=== PATIENT | female | born 1965 | race Caucasian/White ===

== ENCOUNTER 2020-04-09 14:32 | Outpatient (REF) | payer OTHER, SELFPAY | END 2020-04-09 14:33 | disposition home or self-care (01) | LOC: HO.LNP 14:32 | PROVIDERS: Visit Provider Hospitalist | DX: Z20.828 Contact with and (suspected) exposure to other viral communicable diseases (principal) | CPT/HCPCS: 87635 ==

== ENCOUNTER 2020-06-25 08:51 | Outpatient (REF) | payer OTHER, SELFPAY ==
[2020-06-25 10:04] LABS: Basophils Absolute Auto 0.1 X10*3/uL (0.0-0.2); Basophils Percent Auto 0.7 % (0-2); Eosinophils Absolute Auto 0.1 X10*3/uL (0.0-0.4); Eosinophils Percent Auto 0.9 % (0-4); Hematocrit 44.3 % (37-47); Hemoglobin 13.3 g/dl (12.0-16.0); Imm Gran Abs Auto 0.02 X10*3/uL (0.00-0.03); Imm Gran Pct Auto 0.3 % (0.0-0.4); Lymphocytes Absolute Auto 2.8 X10*3/uL (1.2-4.9); Lymphocytes Percent Auto 36.3 % (20-40); MANUAL DIFF FLAG NO; Mean Corpuscular Hemoglobin 21.4 pg (27.0-33.0); Mean Corpuscular Volume 71.3 fL (80-98); Mean Platelet Volume 10.9 fL (9.4-12.3); Monocytes Absolute Auto 0.6 X10*3/uL (0.1-1.2); Monocytes Percent Auto 7.4 % (2-11); Neutrophils Absolute Auto 4.2 X10*3/uL (2.0-8.3); Neutrophils Percent Auto 54.4 % (45-73); Platelet Count 270 X10*3/uL (160-400); Red Blood Count 6.21 X10*6/uL (4.20-5.50); Red Cell Distribution Width 16.9 % (11.0-16.0); White Blood Count 7.7 X10*3/uL (4.8-10.8)
[2020-06-25 10:33] LABS: Creatinine Urine 212.33 mg/dL; Microalbum/Creatinine Ratio Ur 6.1 ug/mg cr
[2020-06-25 10:40] LABS: Alanine Aminotransferase 28 U/L (0-31); Albumin Level 4.3 g/dL (3.5-5.0); Alkaline Phosphatase 95 U/L (39-117); Anion Gap 12 (12-20); Aspartate Amino Transferase 17 U/L (5-31); Bilirubin Total 0.6 mg/dL (0.0-1.0); Blood Urea Nitrogen 17 mg/dL (9-16); Calcium 9.1 mg/dL (8.4-10.2); Carbon Dioxide 29 mmol/L (22-29); Chloride 103 mmol/L (96-108); Cholesterol 153 mg/dL; Estimated Glomerular Filt Rate > 60; Glucose Fasting 117 mg/dL (60-99); HDL Cholesterol 39 mg/dL; LDL Cholesterol Calculated 86 mg/dl; Potassium 4.2 mmol/l (3.3-5.1); Sodium 140 mmol/L (135-145); Total Protein 7.2 g/dL (6.5-8.0); Triglycerides 144 mg/dL
[2020-06-25 10:53] LABS: TSH reflex Free T4 0.96 mIU/mL (0.32-4.0)
[2020-06-25 11:08] LABS: Folate > 20.0 ng/mL (> or = 4.0); Vitamin B12 1049 pg/mL (200-900)
== END 2020-06-25 08:52 | disposition home or self-care (01) ==
LOC: HO.LAB 08:51
PROVIDERS: PCP Internal Medicine; Visit Provider Internal Medicine
DX: E11.9 Type 2 diabetes mellitus without complications (principal); E53.8 Deficiency of other specified B group vitamins; E66.01 Morbid (severe) obesity due to excess calories
CPT/HCPCS: 36415; 80053; 80061; 82043; 82607; 82746; 84443; 85025

== ENCOUNTER 2020-07-23 06:09 | Outpatient (REF) | payer OTHER, SELFPAY | END 2020-07-23 06:10 | disposition home or self-care (01) | LOC: HO.LAB 06:09 | PROVIDERS: PCP Internal Medicine; Visit Provider Internal Medicine | DX: Z20.822 Contact with and (suspected) exposure to COVID-19 (principal) | CPT/HCPCS: 36415; C9803; U0003 ==

== ENCOUNTER → 2020-08-17 14:00 | Outpatient (BNVA) | payer OTHER, SELFPAY | PROVIDERS: Visit Provider Advanced Practice Midwife ==

== ENCOUNTER 2020-08-20 08:42 | Outpatient (REF) | payer OTHER, SELFPAY ==
[2020-08-21 08:58] LABS: BV Int Neg Control Negative (Negative); BV Int Pos Control Positive (Positive)
[2020-08-21 14:02] LABS: C. trachomatis RNA TMA NOT DETECTED (NOT DETECTED); N. gonorrhoeae RNA TMA NOT DETECTED (NOT DETECTED)
[2020-08-25 17:37] LABS: HPV mRNA E6/E7 rflx Not Detected (Not Detected)
== END 2020-08-20 08:43 | disposition home or self-care (01) ==
LOC: HO.LAB 08:42
PROVIDERS: Visit Provider Advanced Practice Midwife
DX: Z01.411 Encounter for gynecological examination (general) (routine) with abnormal findings (principal); Z11.51 Encounter for screening for human papillomavirus (HPV); N89.8 Other specified noninflammatory disorders of vagina; Z20.2 Contact with and (suspected) exposure to infections with a predominantly sexual mode of transmission
CPT/HCPCS: 36415; 87480; 87491; 87510; 87591; 87624; 87660; 88142

== ENCOUNTER 2020-09-10 08:08 | Outpatient (REF) | payer OTHER, SELFPAY | END 2020-09-10 08:09 | disposition home or self-care (01) | LOC: HO.LAB 08:08 | PROVIDERS: PCP Internal Medicine; Visit Provider Obstetrics & Gynecology | DX: Z01.419 Encounter for gynecological examination (general) (routine) without abnormal findings (principal); R87.615 Unsatisfactory cytologic smear of cervix; E11.9 Type 2 diabetes mellitus without complications; I10 Essential (primary) hypertension; E78.5 Hyperlipidemia, unspecified; G47.33 Obstructive sleep apnea (adult) (pediatric); F32.9 Major depressive disorder, single episode, unspecified; Z88.1 Allergy status to other antibiotic agents; Z88.2 Allergy status to sulfonamides; Z88.8 Allergy status to other drugs, medicaments and biological substances; Z99.89 Dependence on other enabling machines and devices; Z98.84 Bariatric surgery status | CPT/HCPCS: 88142 ==

== ENCOUNTER → 2020-10-27 09:52 | Outpatient (BNVA) | payer OTHER, SELFPAY | PROVIDERS: PCP Internal Medicine; Visit Provider Nurse Practitioner Gerontology | DX: E11.65 Type 2 diabetes mellitus with hyperglycemia (principal); Z79.4 Long term (current) use of insulin; I10 Essential (primary) hypertension; E78.5 Hyperlipidemia, unspecified; E66.01 Morbid (severe) obesity due to excess calories; Z68.41 Body mass index [BMI] 40.0-44.9, adult | CPT/HCPCS: 82947 ==

== ENCOUNTER 2020-11-28 07:41 | Outpatient (REF) | payer OTHER, SELFPAY ==
[2020-11-28 08:42] LABS: Alanine Aminotransferase 23 U/L (0-31); Albumin Level 4.1 g/dL (3.5-5.0); Alkaline Phosphatase 93 U/L (39-117); Anion Gap 14 (12-20); Aspartate Amino Transferase 15 U/L (5-31); Bilirubin Total 0.7 mg/dL (0.0-1.0); Blood Urea Nitrogen 14 mg/dL (9-16); Carbon Dioxide 27 mmol/L (22-29); Chloride 104 mmol/L (96-108); Cholesterol 133 mg/dL; Estimated Glomerular Filt Rate > 60; Glucose Fasting 106 mg/dL (60-99); HDL Cholesterol 42 mg/dL; LDL Cholesterol Calculated 66 mg/dl; Potassium 3.9 mmol/L (3.3-5.1); Sodium 141 mmol/L (135-145); Total Protein 6.7 g/dL (6.5-8.0); Triglycerides 128 mg/dL
[2020-11-30 08:23] LABS: Vitamin B12 853 pg/mL (200-900)
== END 2020-11-28 07:42 | disposition home or self-care (01) ==
LOC: HO.LAB 07:41
PROVIDERS: PCP Internal Medicine; Visit Provider Internal Medicine
DX: E11.9 Type 2 diabetes mellitus without complications (principal); E78.5 Hyperlipidemia, unspecified
CPT/HCPCS: 36415; 80053; 80061; 82043; 82607; 82746

== ENCOUNTER → 2020-12-29 08:17 | Outpatient (BNVA) | payer OTHER, SELFPAY | PROVIDERS: PCP Internal Medicine; Visit Provider Nurse Practitioner Gerontology | DX: E11.65 Type 2 diabetes mellitus with hyperglycemia (principal); E78.5 Hyperlipidemia, unspecified; I10 Essential (primary) hypertension; E66.01 Morbid (severe) obesity due to excess calories; Z68.41 Body mass index [BMI] 40.0-44.9, adult | CPT/HCPCS: 82947 ==

== ENCOUNTER 2020-12-29 09:33 | Emergency (ER) | payer OTHER, SELFPAY ==
--- NOTE | ~2020-12-29 | XR_ITS ---
EXAMINATION: XR HIP, RIGHT CLINICAL INFORMATION: Right hip pain. COMPARISON: None TECHNIQUE: Two views of the right hip. FINDINGS: Bones and soft tissues are normal. No fracture. Alignment is anatomic. Hip joint space is maintained. XR/XR hip RT min 2V IMPRESSION: Unremarkable right hip.
[2020-12-29 09:58] VITALS: BP 127/93; PULSE 85; RESP 18; TEMP 36.6; O2SAT 99; BMI 41.9
--- NOTE | 2020-12-29 10:10 | ED_ITS ---
HPI - Abdominal Pain General Chief Complaint: Abdominal Pain Stated Complaint: flank pain Time Seen by Provider: 12/29/20 10:09 Source: patient Mode of arrival: ambulatory Limitations: no limitations History of Present Illness HPI narrative: R hip pain x 3 days radiates down leg, no trauma reported worse with walking no /GI symptoms associated, no prior episoes MD elicited complaint: other (R hip pain) Pertinent past history: none Onset (ago): day(s) (3) Pain Consistency: constant Location: groin (R hip) Severity: moderate Quality: stabbing Radiation: other (R thigh area) Migration to: no migration Exacerbating factors: movement Relieving factors: nothing Associated symptoms: denies other symptoms Related Data Home Medications Medication Instructions Recorded Confirmed atorvastatin 40 mg tablet 40 mg PO DAILY 04/09/20 12/29/20 flu vacc [id number] 6mos up(PF) ml IM 04/09/20 12/29/20 hydroxyzine HCl 25 mg tablet 25 mg PO Q8H PRN tab 10/27/20 12/29/20 trazodone 50 mg tablet 50 mg PO BEDTIME PRN 10/27/20 12/29/20 Previous Rx's Medication Instructions Recorded empagliflozin 25 mg tablet 25 mg PO DAILY 90 Days #90 tab 04/14/20 cyanocobalamin (vitamin B-12) 500 500 mcg PO DAILY 90 Days #90 tab 06/15/20 mcg tablet lisinopril 10 1 tab PO DAILY 90 Days #90 tab 06/15/20 mg-hydrochlorothiazide 12.5 mg tablet insulin glargine 100 unit/mL (3 34 unit SUBCUT BEDTIME 90 Days 08/14/20 mL) subcutaneous pen #30.6 ml pen needle, diabetic 32 gauge x #50 ea 08/14/20 miconazole nitrate 2 % vaginal 1 appful VAGINAL BEDTIME 7 Days 08/21/20 cream #45 g blood sugar diagnostic #100 ea 10/27/20 lancets 33 gauge #100 ea 10/27/20 dulaglutide 3 mg/0.5 mL 3 mg SUBCUT QWEEK 28 Days #2 ml 11/19/20 subcutaneous pen injector cyclobenzaprine 10 mg PO TID PRN #14 tab 12/29/20 ibuprofen 600 mg PO Q6H PRN #30 tab 12/29/20 nitrofurantoin monohyd/m-cryst 100 mg PO BID 7 Days #14 cap 12/29/20 [Macrobid] Allergies Allergy/AdvReac Type Severity Reaction Status Date / Time sulfamethoxazole Allergy Mild Rash Verified 12/29/20 08:38 [From ] trimethoprim [From ] Allergy Mild Rash Verified 12/29/20 08:38 metformin AdvReac Intermediate Diarrhea Verified 12/29/20 08:38 Review of Systems Review of Systems Constitutional : No Fever, No Chills ENT/Mouth : No Ear Pain, No Hoarseness, No sore throat Eyes: No Eye Pain, No Swelling, No Redness, No Foreign Body Cardiovascular : No Chest Pain, No SOB Respiratory : No Cough, No Dyspnea Gastrointestinal : No Nausea, No Vomiting, No Diarrhea, No abdominal Pain Genitourinary : No Dysuria, No Hematuria Musculoskeletal : positive joint pain, No Myalgias, No Joint Swelling Skin : No Skin lacerations, No rash Neuro : No Weakness, No Numbness, No Loss of Consciousness, No Dizziness, No Headache Psych : No Anxiety/Panic, No Depression Heme/Lymph: no easy bruising, no Lymphadenopathy Endocrine : No Polyuria, No Polydipsia All other systems reviewed and are negative Physical Exam Vital Signs: Vital Signs: Last Vital Signs Temp 98.4 F 12/29/20 10:24 Pulse 71 12/29/20 10:24 Resp 20 12/29/20 10:24 BP 120/74 12/29/20 10:24 Pulse Ox 97 12/29/20 10:24 Body Mass Index 41.9 Appearance: Alert. Oriented X3. No acute distress. Eyes: Pupils equal, round and reactive to light. ENT: Pharynx normal. Neck: Normal inspection. Neck supple. CVS: Normal heart rate and rhythm. Pulses normal. Respiratory: No respiratory distress. Breath sounds normal. Abdomen: Soft and non-tender. Skin: Skin warm and dry. Normal skin color. Normal skin turgor. Extremities: No lower extremity edema. No calf ttp R hip ttp along the ASIS area and ilac crest no rash noted pain with ROM of testing, distal NV intact Neuro: Oriented X 3. No motor deficit. No sensory deficit. Course Course Course Narrative: pos UA but no hematuria and pain is not related to the flank it is in the hip seems MSK and not renal colic, can be DC home MDM - Abdominal Pain MDM Narrative Medical decision making narrative: 55 yo female with a hx of DM, JENNIFER, HLD, obesity here with R hip pain worse with movements, she is NV intact, no rash, no swelling of the joint itself has pain with walking and ROM - at this time xrays and UA ordered, has no CVA ttp no RLQ pain to suggest appendicitis/no hematuria and pain is in hip doubt renal colic at this time. Lab Data Labs: Lab Results 12/29/20 12/29/20 Range/Units 10:07 10:07 Urine Color YELLOW Urine Appearance CLEAR Urine pH 6.0 (5.0-8.0) Ur Specific [place] 1.025 (1.005-1.025) Urine Protein NEG (NEG-TRACE) MG/DL Urine Glucose (UA) >=1000 H (NEG) MG/DL Urine Ketones NEG (NEG) MG/DL Urine Blood NEG (NEG) Urine Nitrite NEG (NEG) Ur Leukocyte Esterase NEG (NEG) Urine RBC 0 (0) /HPF Urine WBC 10-14 H (0-4) /HPF Ur Squamous Epith Cells 2+ /LPF Urine Bacteria 2+ /LPF Urine Test NEGATIVE (NEGATIVE) Discharge Plan Discharge Clinical Impression: UTI (urinary tract infection) Qualifiers: Urinary tract infection type: acute cystitis Hematuria presence: without hematuria Qualified Code(s): N30.00 - Acute cystitis without hematuria Hip strain Qualifiers: Encounter type: initial encounter Laterality: right Qualified Code(s): S76.011A - Strain of muscle, fascia and tendon of right hip, initial encounter Patient Disposition: Home, Self-Care Instructions: Urinary Tract Infection in Women (ED), Arthralgia (ED) Additional Instructions: return to ED for any worsening symptoms or concerns Prescriptions: New cyclobenzaprine 10 mg tablet 10 mg PO TID PRN (Reason: muscle spasm) Qty: 14 RF: 0 ibuprofen 600 mg tablet 600 mg PO Q6H PRN (Reason: pain) Qty: 30 RF: 0 nitrofurantoin monohyd/m-cryst [Macrobid] 100 mg capsule 100 mg PO BID 7 Days Qty: 14 RF: 0 No Action Jardiance 25 mg tablet 25 mg PO DAILY 90 Days Qty: 90 RF: 3 lisinopril-hydrochlorothiazide 10-12.5 mg tablet 1 tab PO DAILY 90 Days Qty: 90 RF: 4 cyanocobalamin (vitamin B-12) 500 mcg tablet 500 mcg PO DAILY 90 Days Qty: 90 RF: 4 insulin glargine 100 unit/mL (3 mL) insulin pen 34 unit subcut BEDTIME 90 Days Qty: 30.6 RF: 3 (DME) pen needle, diabetic 32 gauge x 5/32 needle See Rx Instructions ea topical DAILY Qty: 50 RF: 11 miconazole nitrate [Monistat 7] 2 % cream 1 appful vaginal BEDTIME 7 Days Qty: 45 RF: 0 Trulicity 3 mg/0.5 mL pen injector 3 mg subcut QWEEK 28 Days Qty: 2 RF: 2 Fluzone Quad [id number] (PF) 60 mcg (15 mcg x 4)/0.5 mL syringe IM RF: 0 atorvastatin 40 mg tablet 40 mg PO DAILY RF: 0 hydroxyzine HCl 25 mg tablet 25 mg PO Q8H PRN (Reason: itch) RF: 0 trazodone 50 mg tablet 50 mg PO BEDTIME PRNRF: 0 (DME) FreeStyle Test Strip See Rx Instructions .ROUTE .MEDSUPPLY Qty: 100 RF: 11 (DME) lancets [TRUEplus Lancets] 33 gauge misc See Rx Instructions .ROUTE .MEDSUPPLY Qty: 100 RF: 11 Referrals: Joanne Hernandez MD [Primary Care Provider] - 2 days (if not better) Stand Alone Forms: Work/School Release [facility] Past Medical History Attestation statement: The following information was validated with the patient. Medical History Abnormal Pap smear of cervix Depression Diabetes mellitus Diabetes type 2, uncontrolled Dyslipidemia Essential hypertension Obesity due to excess calories JENNIFER on CPAP Sleep apnea Surgical History History of removal of cyst History of tubal ligation Hx of colonoscopy Hx of laparoscopic gastric banding Hx of mammogram Family History Family History Father Heart disease Hypertension Alzheimers disease CVD (cardiovascular disease) Diabetes Mother Heart disease Hypertension CVD (cardiovascular disease) Arthritis Diabetes Maternal Grandmother No problems noted. Maternal Grandfather No problems noted. Paternal Grandmother Asthma Paternal Grandfather No problems noted. Maternal Aunt Colon cancer Brother Diabetes Sister Diabetes Social History Social History Household Members: Spouse and Children Housing: House Alcohol intake: current Alcohol intake frequency: does not drink Alcohol type: beer and wine Patient Tobacco Use Status: Never used Tobacco Use of substances other than those prescribed or required for medical reasons: No Advance Directives: Yes Advance Directives Information Provided: Yes Advance Directives on File: No Patient : No service: No Current occupational status: employed Gender identity: female
[2020-12-29 10:19] LABS: Glucose Urine UA >=1000 MG/DL (NEG); Leukocyte Esterase Urine NEG (NEG); Nitrite Urine NEG (NEG); Specific Gravity - Urine 1.025 (1.005-1.025); Urine Blood NEG (NEG); Urine Ketones NEG (NEG); Urine Protein NEG (NEG-TRACE)
[2020-12-29 10:21] LABS: UPreg QC Valid YES; Urine Pregnancy NEGATIVE (NEGATIVE)
[2020-12-29 10:22] LABS: Appearance Urine CLEAR; Color Urine YELLOW
[2020-12-29 10:24] VITALS: BP 120/74; PULSE 71; RESP 20; TEMP 36.9; O2SAT 97
[2020-12-29 10:34] LABS: Bacteria Urine 2+ /LPF; RBC Urine 0 /HPF (0); Squamous Epithelial Cell Urine 2+ /LPF
[2020-12-29] MEDS: Ketorolac Tromethamine 60 MG/2 ML VIAL IM (10:35)
== END 2020-12-29 11:47 | disposition home or self-care (01) ==
PROVIDERS: Emergency Provider Emergency Medicine; PCP Internal Medicine
DX: N30.00 Acute cystitis without hematuria (principal); S76.011A Strain of muscle, fascia and tendon of right hip, initial encounter; X58.XXXA Exposure to other specified factors, initial encounter; E11.9 Type 2 diabetes mellitus without complications; E78.5 Hyperlipidemia, unspecified; Y93.9 Activity, unspecified; Y92.9 Unspecified place or not applicable; Y99.9 Unspecified external cause status; Z79.4 Long term (current) use of insulin; Z79.02 Long term (current) use of antithrombotics/antiplatelets
CPT/HCPCS: 73502; 81001; 81025; 96372; 99284; J1885

== ENCOUNTER 2021-02-02 07:22 | Outpatient (REF) | payer OTHER, SELFPAY ==
--- NOTE | ~2021-02-02 | MM_ITS ---
EXAMINATION: MM SCREENING DIGITAL BREAST TOMOSYNTHESIS, BILATERAL CLINICAL INFORMATION: Screening. Asymptomatic. The lifetime risk of breast cancer based on the Tyrer-Cuzick Model is 7%. COMPARISON: Mammography: 10/14/2019, 01/22/2019, 01/12/2018 TECHNIQUE: Digital breast tomosynthesis is performed in both the craniocaudal and mediolateral oblique views along with computer-aided detection (CAD). Synthesized 2D images are generated from the tomosynthesis. Additional bilateral CC and additional bilateral MLO views are provided. FINDINGS: There are scattered areas of fibroglandular density (ACR BI-RADS breast composition Category b). There are no significant masses, abnormal calcifications, or other abnormalities. The axilla are unremarkable. Skin contours are smooth. No developing density or significant change from prior studies. MM/MM tomosynthesis screening BI IMPRESSION: No mammographic evidence of malignancy. ASSESSMENT: BI-RADS 1: Negative RECOMMENDATION: Routine annual mammography screening. This patient's information was entered into a reminder system with a target due date for their next mammogram.
== END 2021-02-02 07:23 | disposition home or self-care (01) ==
LOC: HO.MAMMO 07:22
PROVIDERS: Visit Provider Internal Medicine
DX: Z12.31 Encounter for screening mammogram for malignant neoplasm of breast (principal)
CPT/HCPCS: 77063; 77067

== ENCOUNTER → 2021-03-18 08:26 | Outpatient (BNVA) | payer OTHER, SELFPAY | PROVIDERS: PCP Internal Medicine; Visit Provider Nurse Practitioner Gerontology ==

== ENCOUNTER 2021-04-10 08:22 | Outpatient (REF) | payer OTHER, SELFPAY ==
[2021-04-10 09:38] LABS: Estimated Average Glucose 128 mg/dL; Hemoglobin A1C 144.5035 umol/L; Hemoglobin A1c % 6.1 %
[2021-04-10 09:43] LABS: Alanine Aminotransferase 29 U/L (0-31); Albumin Level 4.3 g/dL (3.5-5.0); Alkaline Phosphatase 89 U/L (39-117); Anion Gap 13 (12-20); Aspartate Amino Transferase 17 U/L (5-31); Bilirubin Total 0.6 mg/dL (0.0-1.0); Blood Urea Nitrogen 14 mg/dL (9-16); Calcium 9.1 mg/dL (8.4-10.2); Carbon Dioxide 28 mmol/L (22-29); Chloride 103 mmol/L (96-108); Cholesterol 136 mg/dL; Estimated Glomerular Filt Rate > 60; Glucose Fasting 93 mg/dL (60-99); HDL Cholesterol 38 mg/dL; LDL Cholesterol Calculated 75 mg/dl; Potassium 4.2 mmol/L (3.3-5.1); Sodium 140 mmol/L (135-145); Total Protein 7.2 g/dL (6.5-8.0); Triglycerides 116 mg/dL
[2021-04-10 11:46] LABS: Creatinine Urine 127.27 mg/dL; Microalbum/Creatinine Ratio Ur 16.5 ug/mg cr
[2021-04-16 13:02] LABS: Vitamin D 25-OH, D2 <4 ng/mL; Vitamin D 25-OH, D3 38 ng/mL; Vitamin D 25-OH, Total 38 ng/mL (30-100)
== END 2021-04-10 08:23 | disposition home or self-care (01) ==
LOC: HO.LAB 08:22
PROVIDERS: Absent Provider Nurse Practitioner Gerontology; PCP Internal Medicine; Visit Provider Internal Medicine
DX: E78.5 Hyperlipidemia, unspecified (principal); E55.9 Vitamin D deficiency, unspecified; E11.65 Type 2 diabetes mellitus with hyperglycemia
CPT/HCPCS: 36415; 80053; 80061; 82043; 82306; 83036

== ENCOUNTER 2021-06-03 07:07 | Outpatient (REF) | payer OTHER, SELFPAY | END 2021-06-03 07:08 | disposition home or self-care (01) | LOC: HO.LAB 07:07 | PROVIDERS: PCP Internal Medicine; Visit Provider Internal Medicine | DX: Z20.822 Contact with and (suspected) exposure to COVID-19 (principal) | CPT/HCPCS: C9803; U0003; U0005 ==

== ENCOUNTER 2021-07-13 14:25 | Emergency (ER) | payer OTHER, SELFPAY ==
--- NOTE | ~2021-07-13 | CT_ITS ---
EXAMINATION: CT ABDOMEN AND PELVIS WITHOUT CONTRAST CLINICAL INFORMATION: Abdominal pain COMPARISON: None TECHNIQUE: Multidetector volumetric imaging was performed from the superior aspect of the liver through the pubic symphysis. Sagittal and coronal reformatted images were obtained on the technologist's workstation. This CT examination was performed using dose optimization techniques as appropriate, variously including the following: *Automated exposure control *Adjustment of mA and/or kV according to patient size (this includes techniques or standardized protocols for targeted exams where dose is matched to indication/reason for exam; i.e. extremities or head) *Use of iterative reconstruction technique DLP: 860 mGy-cm FINDINGS: LUNG BASES: The visualized lung bases are unremarkable. LIVER, GALLBLADDER, AND BILIARY TREE: The liver is normal in size, shape, and attenuation. No focal hepatic lesion or biliary ductal dilatation is present. The gallbladder is unremarkable with no evidence of radiopaque gallstones, gallbladder wall thickening, or obvious pericholecystic inflammatory changes. PANCREAS: Unremarkable. SPLEEN: Unremarkable. ADRENAL GLANDS: Unremarkable. KIDNEYS AND URETERS: The kidneys are normal in size, shape, and attenuation. No hydronephrosis, hydroureter, or calculi seen. No perinephric stranding. BLADDER: Unremarkable. GASTROINTESTINAL TRACT: There is diverticulosis of the colon. No evidence of diverticulitis is seen. The small and large bowel are otherwise unremarkable. The appendix is unremarkable. ABDOMINAL WALL: No significant hernia is appreciated. LYMPH NODES: Normal. VASCULAR: Unremarkable. PELVIC VISCERA: Unremarkable. OSSEOUS STRUCTURES: Unremarkable. CT/CT abdomen pelvis wo con IMPRESSION: Diverticulosis. No evidence of diverticulitis. Fleischner guidelines were followed.
[2021-07-13 15:07] VITALS: BP 150/78; PULSE 75; RESP 18; TEMP 37.1; O2SAT 98; BMI 41.1
[2021-07-13 15:45] LABS: MANUAL DIFF FLAG NO
[2021-07-13 15:48] LABS: Appearance Urine HAZY; Color Urine YELLOW; Glucose Urine UA >=1000 MG/DL (NEG); Leukocyte Esterase Urine NEG (NEG); Nitrite Urine NEG (NEG); Urine Blood NEG (NEG); Urine Ketones NEG (NEG); Urine Protein NEG (NEG-TRACE)
[2021-07-13 15:49] LABS: Basophils Absolute Auto 0.1 X10*3/uL (0.0-0.2); Basophils Percent Auto 0.7 % (0-2); Eosinophils Absolute Auto 0.1 X10*3/uL (0.0-0.4); Eosinophils Percent Auto 0.9 % (0-4); Hematocrit 42.2 % (37.0-47.0); Imm Gran Abs Auto 0.02 X10*3/uL (0.00-0.03); Imm Gran Pct Auto 0.3 % (0.0-0.4); Lymphocytes Absolute Auto 2.7 X10*3/uL (1.2-4.9); Lymphocytes Percent Auto 35.8 % (20-40); Mean Corpuscular HGB Conc 30.8 g/dl (31.0-35.0); Mean Corpuscular Hemoglobin 21.9 pg (27.0-33.0); Mean Platelet Volume 10.3 fL (9.4-12.3); Monocytes Absolute Auto 0.7 X10*3/uL (0.1-1.2); Monocytes Percent Auto 9.6 % (2-11); Neutrophils Absolute Auto 3.9 x10*3/uL (2.0-8.3); Neutrophils Percent Auto 52.7 % (45-73); Platelet Count 255 X10*3/uL (160-400); Red Blood Count 5.94 X10*6/uL (4.20-5.50); Red Cell Distribution Width 16.1 % (11.0-16.0); White Blood Count 7.5 X10*3/uL (4.8-10.8)
[2021-07-13 15:54] LABS: Mucus Urine TRACE /LPF; Squamous Epithelial Cell Urine 2+ /LPF
[2021-07-13 15:55] LABS: Bacteria Urine 2+ /LPF
[2021-07-13 15:56] LABS: RBC Urine 0-2 /HPF (0); WBC Urine 0-2 /HPF (0-4)
[2021-07-13 16:06] LABS: Anion Gap 9 (12-20); Blood Urea Nitrogen 14 mg/dL (9-16); Calcium 9.4 mg/dL (8.4-10.2); Carbon Dioxide 31 mmol/L (22-29); Chloride 106 mmol/L (96-108); Creatinine Clr Calc Pharmacy 96.2; Estimated Glomerular Filt Rate > 60; Glucose Random 120 mg/dL (60-115); Potassium 4.2 mmol/L (3.3-5.1); Sodium 142 mmol/L (135-145)
--- NOTE | 2021-07-13 21:20 | ED.FEMALEGU ---
HPI - Female Genitourinary General Chief complaint: Urogenital-Female Stated complaint: R side abd pain Time Seen by Provider: 07/13/21 18:51 Source: patient Mode of arrival: ambulatory Limitations: no limitations History of Present Illness HPI Narrative: 55-year-old female here with 2 days of right-sided back pain which radiates down the right leg with associated numbness and tingling. The patient denies any history of injury or trauma to the back. 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 She denies any abdominal pain, urinary symptoms, bowel or bladder incontinence, saddle anesthesia, fevers, chills, nausea, vomiting, diarrhea. Related Data Home Medications Medication Instructions Recorded Confirmed flu vacc [id number] 6mos up(PF) ml IM 04/09/20 04/27/21 hydroxyzine HCl 25 mg tablet 25 mg PO Q8H PRN tab 10/27/20 04/27/21 trazodone 50 mg tablet 50 mg PO BEDTIME PRN 10/27/20 04/27/21 Previous Rx's Medication Instructions Recorded pen needle, diabetic 32 gauge x #50 ea 08/14/20 miconazole nitrate 2 % vaginal 1 appful VAGINAL BEDTIME 7 Days 08/21/20 cream (Monistat 7) #45 g blood sugar diagnostic (FreeStyle #100 ea 10/27/20 Test) lancets 33 gauge (TRUEplus Lancets) #100 ea 10/27/20 atorvastatin 40 mg tablet 40 mg PO DAILY #90 tab 12/29/20 cyclobenzaprine 10 mg tablet 10 mg PO TID PRN #14 tab 12/29/20 ibuprofen 600 mg tablet 600 mg PO Q6H PRN #30 tab 12/29/20 empagliflozin 25 mg tablet 25 mg PO DAILY 90 Days #90 tab 03/14/21 (Jardiance) dulaglutide 3 mg/0.5 mL 3 mg (0.5 mL) SUBCUT QWEEK 28 Days 03/18/21 subcutaneous pen injector #2 ml (Trulicity) insulin glargine 100 unit/mL (3 34 unit (0.34 mL) SUBCUT BEDTIME 06/01/21 mL) subcutaneous pen 90 Days #30.6 ml lisinopril 10 1 tab PO DAILY #90 tab 06/11/21 mg-hydrochlorothiazide 12.5 mg tablet cyanocobalamin (vitamin B-12) 500 500 mcg PO DAILY 90 Days #90 tab 06/25/21 mcg tablet cyclobenzaprine 10 mg tablet 10 mg PO TID PRN #10 tab 07/13/21 lidocaine 5 % topical patch 1 patch TOPICAL DAILY #15 ea 07/13/21 (Lidoderm) naproxen 500 mg tablet 500 mg PO BID PRN #20 tab 07/13/21 Allergies Allergy/AdvReac Type Severity Reaction Status Date / Time sulfamethoxazole Allergy Mild Rash Verified 04/27/21 16:44 [From ] trimethoprim [From ] Allergy Mild Rash Verified 04/27/21 16:44 metformin AdvReac Intermediate Diarrhea Verified 04/27/21 16:44 Review of Systems Review of Systems: Yes all other systems are reviewed and are negative Constitutional: Constitutional: Reports no additional constitutional complaints, Denies body ache(s), Denies chills, Denies fever(s), Denies headache(s) and Denies weakness Eyes: Eyes: Reports no additional eye complaints and Denies change in vision ENT: Reports system reviewed and no additional complaints, except as documented, Denies dizziness, Denies headache(s), Denies nasal congestion, Denies nasal discharge and Denies neck pain Cardiovascular: Cardiovascular: Reports no additional cardiovascular complaints, Denies chest pain, Denies leg edema and Denies dyspnea Respiratory: Respiratory: Reports no additional respiratory complaints, Denies cough and Denies dyspnea Gastrointestinal: Gastrointestinal: Reports no additional gastrointestinal complaints, Denies abdominal pain, Denies diarrhea, Denies nausea and Denies vomiting Genitourinary: Genitourinary: Reports no additional female genitourinary complaints and Denies urinary incontinence Musculoskeletal: Musculoskeletal: Reports no additional musculoskeletal complaints, Reports back pain, Denies arthralgias, Denies joint swelling, Denies neck pain, Denies numbness and Denies tingling Integumentary/Breasts: Skin/Breast: Reports system reviewed and no additional complaints, except as docu and Denies rash Neurologic: Reports system reviewed and no additional complaints, except as documented, Denies Abnormal speech present, Denies dizziness, Denies headache(s), Denies numbness, Denies tingling and Denies weakness PMF Past Medical History Attestation statement: The following information was validated with the patient. Source: old records reviewed and nursing notes reviewed Medical History Abnormal Pap smear of cervix Depression Diabetes mellitus Diabetes type 2, uncontrolled Dyslipidemia Essential hypertension Morbid obesity with BMI of 40.0-44.9, adult Obesity due to excess calories JENNIFER on CPAP Sleep apnea Surgical History History of removal of cyst History of tubal ligation Hx of colonoscopy Hx of laparoscopic gastric banding Hx of mammogram Family History Family History Father Heart disease Hypertension Alzheimers disease CVD (cardiovascular disease) Diabetes Mental health disorder Mother Heart disease Hypertension CVD (cardiovascular disease) Arthritis Diabetes Maternal Grandmother No problems noted. Maternal Grandfather No problems noted. Paternal Grandmother Asthma Paternal Grandfather No problems noted. Maternal Aunt Colon cancer Brother Diabetes Sister Diabetes Social History Social History Household Members: Spouse and Children Housing: House Alcohol intake: current Alcohol intake frequency: holidays/special occasions only Alcohol type: beer and wine Patient Tobacco Use Status: Never used Tobacco e-Cigarette/Vaping Use: Never Used Second Hand Smoke Exposure: No Advance Directives: No Advance Directives Information Provided: No Patient : No service: No Current occupational status: employed Gender identity: Female Physical Exam Vital Signs: Vital Signs: Last Vital Signs Temp 98.8 F 07/13/21 15:07 Pulse 75 07/13/21 15:07 Resp 18 07/13/21 15:07 BP 150/78 H 07/13/21 15:07 Pulse Ox 98 07/13/21 15:07 BMI result Body Mass Index 41.1 Const: General: cooperative, healthy appearing, comfortable and no acute distress Orientation/consciousness: patient oriented x3 Limitations: no limitations HENMT: Head: Yes normal to inspection Ears: hearing grossly normal bilaterally General nose exam: Normal external nose present Face and sinus: Yes normal facial exam Mouth: Normal oral and palatal mucosa present Throat: Yes posterior oropharynx normal Eyes: General: appearance normal, both eyes and all related structures Pupils: Equal, round and reactive pupils present Neck: Neck: Yes normal visual inspection Chest: Chest palpation & inspection: normal inspection of the chest Resp: Effort & Inspection: normal respiratory effort Auscultation: clear to auscultation bilaterally Cardio: Rate: regular rate Rhythm: regular rhythm Peripheral pulses: Peripheral pulses 2+ throughout GI: Inspection: Yes normal to inspection Palpation (GI): Soft to palpation and nontender Auscultation: normal bowel sounds : General: Yes no CVA tenderness Back/Spine/Pelvis: Other: Tenderness to lower midline lumbar with no step-offs or deformities. Tenderness to the right buttocks with palpable muscle spasm. Back: no CVA tenderness Thoracic/Lumbar Spine: thoracic and lumbar spine normal to inspection Skin: General skin exam: no rashes or lesions noted Neuro: General: patient oriented x3, no focal motor deficits and normal sensation to monofilament Cranial nerves: Yes Equal, round and reactive pupils present Cognition (Neuro): normal cognition Speech: No Abnormal speech present Gait exam (Neuro): Normal gait present Motor exam (neuro): 5/5 motor strength present throughout Sensory Exam: Normal double simultaneous stimulation for sensation Deep tendon reflexes (DTR's): Right patellar reflex intensity grade: 2+ and Left patellar reflex intensity grade: 2+ Extrem: General: Yes normal to inspection Course Course Course Narrative: 55-year-old female here with reports of right lower back pain with radiation down the right leg for 2 days with no known injury or trauma No abdominal pain or vomiting. Labs and urine reviewed from triage which are unremarkable. The patient had a CT scan of the abdomen and pelvis which was ordered from triage was unremarkable. Exam is consistent with sciatica. Patient given Toradol and Flexeril with improvement of symptoms. No neurological deficits or red flag symptoms. Reviewed worrisome signs and symptoms with the patient and when to return to the emergency department. Comfortable discharge home. MDM - Female Genitourinary Medical Records Attestation: I reviewed the patient's medical records. Lab Data Attestation: I reviewed the patient's lab results. Result diagrams: 07/13/21 15:34 07/13/21 15:34 Labs: Lab Results 07/13/21 07/13/21 07/13/21 Range/Units 15:34 15:34 15:34 WBC 7.5 (4.8-10.8) X10*3/uL RBC 5.94 H (4.20-5.50) X10*6/uL Hgb 13.0 (12.0-16.0) g/dl Hct 42.2 (37.0-47.0) % MCV 71.0 L (80.0-98.0) fL MCH 21.9 L (27.0-33.0) pg MCHC 30.8 L (31.0-35.0) g/dl RDW 16.1 H (11.0-16.0) % Plt Count 255 (160-400) X10*3/uL MPV 10.3 (9.4-12.3) fL Immature Gran % (Auto) 0.3 (0.0-0.4) % Neut % (Auto) 52.7 (45-73) % Lymph % (Auto) 35.8 (20-40) % [place] % (Auto) 9.6 (2-11) % Eos % (Auto) 0.9 (0-4) % Baso % (Auto) 0.7 (0-2) % Lymph # (Auto) 2.7 (1.2-4.9) X10*3/uL [place] # (Auto) 0.7 (0.1-1.2) X10*3/uL Eos # (Auto) 0.1 (0.0-0.4) X10*3/uL Baso # (Auto) 0.1 (0.0-0.2) X10*3/uL Abs Immat Gran (auto) 0.02 (0.00-0.03) X10*3/uL Absolute Neuts (auto) 3.9 (2.0-8.3) x10*3/uL Absolute Nucleated RBC 0.000 (0.0-0.012) X10*3/uL Nucleated RBC % (auto) 0.0 (0.0-0.2) /100WBC Sodium 142 (135-145) mmol/L Potassium 4.2 (3.3-5.1) mmol/L Chloride 106 (96-108) mmol/L Carbon Dioxide 31 H (22-29) mmol/L Anion Gap 9 L (12-20) BUN 14 (9-16) mg/dL Creatinine 0.73 (0.5-1.4) mg/dL Estim Creat Clear Calc 96.2 Estimated GFR > 60 Random Glucose 120 H (60-115) mg/dL Calcium 9.4 (8.4-10.2) mg/dL Urine Color YELLOW Urine Appearance HAZY Urine pH 6.0 (5.0-8.0) Ur Specific [place] 1.020 (1.005-1.025) Urine Protein NEG (NEG-TRACE) MG/DL Urine Glucose (UA) >=1000 H (NEG) MG/DL Urine Ketones NEG (NEG) MG/DL Urine Blood NEG (NEG) Urine Nitrite NEG (NEG) Ur Leukocyte Esterase NEG (NEG) Urine RBC 0-2 (0) /HPF Urine WBC 0-2 (0-4) /HPF Ur Squamous Epith Cells 2+ /LPF Urine Bacteria 2+ /LPF Urine Mucus TRACE /LPF Imaging Data CT scan - abdomen: Attestation: I personally reviewed and interpreted this imaging study as follows: Radiologist's impression: FINDINGS: LUNG BASES: The visualized lung bases are unremarkable.? LIVER, GALLBLADDER, AND BILIARY TREE: The liver is normal in size, shape, and attenuation. No focal hepatic lesion or biliary ductal dilatation is present. The gallbladder is unremarkable with no evidence of radiopaque gallstones, gallbladder wall thickening, or obvious pericholecystic inflammatory changes.? PANCREAS: Unremarkable.? SPLEEN: Unremarkable.? ADRENAL GLANDS: Unremarkable.? KIDNEYS AND URETERS: The kidneys are normal in size, shape, and attenuation. No hydronephrosis, hydroureter, or calculi seen. No perinephric stranding. ? BLADDER: Unremarkable.? GASTROINTESTINAL TRACT: There is diverticulosis of the colon. No evidence of diverticulitis is seen. The small and large bowel are otherwise unremarkable. The appendix is unremarkable.? ABDOMINAL WALL: No significant hernia is appreciated.? LYMPH NODES: Normal. VASCULAR: Unremarkable. PELVIC VISCERA: Unremarkable.? OSSEOUS STRUCTURES: Unremarkable.? CT/CT abdomen pelvis wo con IMPRESSION: Diverticulosis. No evidence of diverticulitis. ? Fleischner guidelines were followed. Discharge Plan Discharge Clinical Impression: Sciatica Patient Disposition: Home, Self-Care Instructions: Sciatica (ED) Additional Instructions: Heat or ice to the area Gentle stretching No heavy lifting or bending Follow-up with your doctor in 1 week for persistent symptoms Your urine testing, lab work and CT scan are all normal Prescriptions: New cyclobenzaprine 10 mg tablet 10 mg PO TID PRN (Reason: muscle spasm) Qty: 10 RF: 0 naproxen 500 mg tablet 500 mg PO BID PRN (Reason: pain) Qty: 20 RF: 0 lidocaine [Lidoderm] 5 % adhesive patch,medicated 1 patch topical DAILY Qty: 15 RF: 0 No Action (DME) pen needle, diabetic 32 gauge x 5/32 needle See Rx Instructions ea topical DAILY Qty: 50 RF: 11 miconazole nitrate [Monistat 7] 2 % cream 1 appful vaginal BEDTIME 7 Days Qty: 45 RF: 0 atorvastatin 40 mg tablet 40 mg PO DAILY Qty: 90 RF: 3 Jardiance 25 mg tablet 25 mg PO DAILY 90 Days Qty: 90 RF: 3 insulin glargine 100 unit/mL (3 mL) insulin pen 34 unit subcut BEDTIME 90 Days Qty: 30.6 RF: 3 lisinopril-hydrochlorothiazide 10-12.5 mg tablet 1 tab PO DAILY Qty: 90 RF: 4 cyanocobalamin (vitamin B-12) 500 mcg tablet 500 mcg PO DAILY 90 Days Qty: 90 RF: 4 cyclobenzaprine 10 mg tablet 10 mg PO TID PRN (Reason: muscle spasm) Qty: 14 RF: 0 ibuprofen 600 mg tablet 600 mg PO Q6H PRN (Reason: pain) Qty: 30 RF: 0 Fluzone Quad [id number] (PF) 60 mcg (15 mcg x 4)/0.5 mL syringe IM RF: 0 hydroxyzine HCl 25 mg tablet 25 mg PO Q8H PRN (Reason: itch) RF: 0 Trulicity 3 mg/0.5 mL pen injector 3 mg subcut QWEEK 28 Days Qty: 2 RF: 6 trazodone 50 mg tablet 50 mg PO BEDTIME PRNRF: 0 (DME) FreeStyle Test Strip See Rx Instructions .ROUTE .MEDSUPPLY Qty: 100 RF: 11 (DME) lancets [TRUEplus Lancets] 33 gauge misc See Rx Instructions .ROUTE .MEDSUPPLY Qty: 100 RF: 11 Referrals: Joanne Hernandez MD [Primary Care Provider] - 2 days Stand Alone Forms: Work/School Release
[2021-07-13] MEDS: Cyclobenzaprine HCl 10 MG TABLET PO (21:45)
[2021-07-13] MEDS: Ketorolac Tromethamine 60 MG/2 ML VIAL IM (21:45)
[2021-07-13 22:00] VITALS: BP 145/66; PULSE 83; RESP 17; TEMP 37.2; O2SAT 96
== END 2021-07-13 22:07 | disposition home or self-care (01) ==
LOC: HO.ED 21:24
PROVIDERS: Emergency Provider Emergency Medicine; PCP Internal Medicine
DX: M54.41 Lumbago with sciatica, right side (principal); E11.9 Type 2 diabetes mellitus without complications; I10 Essential (primary) hypertension; E78.5 Hyperlipidemia, unspecified; Z79.4 Long term (current) use of insulin; Z79.02 Long term (current) use of antithrombotics/antiplatelets; Z79.899 Other long term (current) drug therapy
CPT/HCPCS: 36415; 74176; 80048; 81001; 85025; 96372; 99283; 99284; J1885

== ENCOUNTER → 2021-07-20 07:54 | Outpatient (BNVA) | payer OTHER, SELFPAY | PROVIDERS: PCP Internal Medicine; Visit Provider Nurse Practitioner Gerontology | DX: E11.65 Type 2 diabetes mellitus with hyperglycemia (principal); E78.5 Hyperlipidemia, unspecified; E66.01 Morbid (severe) obesity due to excess calories; I10 Essential (primary) hypertension; E04.9 Nontoxic goiter, unspecified; Z68.41 Body mass index [BMI] 40.0-44.9, adult | CPT/HCPCS: 82947; 83036 ==

== ENCOUNTER 2021-07-20 08:32 | Outpatient (REF) | payer OTHER, SELFPAY ==
[2021-07-20 11:04] LABS: Free T4 (Free Thyroxine) 0.86 ng/dL (0.71-1.85); Thyroid Stimulating Hormone 0.89 uIU/mL (0.32-4.0)
[2021-07-21 21:25] LABS: Thyroglobulin Antibodies <1 IU/mL (< or = 1); Thyroid Peroxidase Antibodies 1 IU/mL (<9)
== END 2021-07-20 08:33 | disposition home or self-care (01) ==
LOC: HO.10HDL 08:32
PROVIDERS: Visit Provider Nurse Practitioner Gerontology
DX: E04.9 Nontoxic goiter, unspecified (principal)
CPT/HCPCS: 36415; 84439; 84443; 86376; 86800

== ENCOUNTER 2021-07-27 08:51 | Outpatient (REF) | payer OTHER, SELFPAY ==
--- NOTE | ~2021-07-27 | US_ITS ---
EXAMINATION: US THYROID CLINICAL INFORMATION: Nontoxic goiter, unspecified. COMPARISON: Thyroid ultrasound 08/29/2006. TECHNIQUE: Linear transducer grayscale and color Doppler examination with attention to the region of the thyroid. FINDINGS: SIZE: Measurements of the thyroid lobes and nodules are given in sagittal, anteroposterior and transverse dimensions respectively. Right Thyroid Lobe: 4.6 x 1.5 x 1.3 cm, volume 4.7 mL. Previously 3.6 x 1.4 x 1.3 cm, volume 3.4 mL. Parenchyma: The gland echotexture is homogeneous. Thyroid vascularity is normal. Left Thyroid Lobe: 4.5 x 1.3 x 1.4 cm, volume 4.3 mL. Previously 4.0 x 1.4 x 1.0 cm, volume 2.9 mL. Parenchyma: The gland echotexture is homogeneous. Thyroid vascularity is normal. Isthmus: 0.4 cm in maximum AP dimension. Previously 0.3 cm. Estimated total number of nodules greater than or equal to 1 cm: 1. Project Program Manager nodules are described as follows: 1. Location: Left mid pole. Size: 0.5 x 0.3 x 0.5 cm, volume 0.05 mL. Previously: 9 mm. Nodule characteristics: Composition: Mixed cystic and solid (1). Echogenicity: Hyperechoic (1). Shape: Not taller than wide (0). Margins: Smooth (0). Echogenic Foci: Macrocalcifications (1). Macrocalcification ACR TI-RADS total points: 2 ACR TI-RADS category: 2 Significant change in size (>/= 20% in 2 dimensions and minimal increase of 2 mm or 50% or greater increase in volume): None Change in features: None Change in ACR TI-RADS risk category: Not applicable 2. Location: Left lower pole. Size: 0.7 x 0.6 x 0.8 cm, volume 0.16 mL. Previously: 7 mm. Nodule characteristics: Composition: Spongiform (0). ACR TI-RADS total points: 0 ACR TI-RADS category: 1 Significant change in size (>/= 20% in 2 dimensions and minimal increase of 2 mm or 50% or greater increase in volume): None Change in features: None Change in ACR TI-RADS risk category: Not applicable 3. Location: Right lower pole. Size: 1.6 x 1.5 x 1.4 cm, volume 1.68 mL. Previously: Not documented. Nodule characteristics: Composition: Solid (2). Echogenicity: Hypoechoic (2). Shape: Not taller than wide (0). Margins: Smooth (0). Echogenic Foci: Peripheral calcifications (2). ACR TI-RADS total points: 6 ACR TI-RADS category: 4 NODES: No lymphadenopathy is seen in the tissue surrounding the thyroid gland. US/US thyroid IMPRESSION: Multiple tiny thyroid nodules. The lower pole right lobe is very suspicious based on TI-RADS scale. Recommend ultrasound guided fine-needle biopsy aspiration. ACR TI-RADS RECOMMENDATION REFERENCE: Ultrasound-guided fine-needle aspiration, followup ultrasound, no further follow up. * TR1 (0 point) and TR 2 (2 points): No FNA or follow up * TR3 (3 points): FNA if more than or equal to 2.5 cm in maximum dimension, followup ultrasound in 1, 3 and 5 years if 1.5 to 2.4 cm in maximum dimension. * TR4 (4-6 points): FNA if more than or equal to 1.5 cm in maximum dimension, followup ultrasound in 1, 2, 3 and 5 years if 1 to 1.4 cm in maximum dimension. * TR5 (more than or equal to 7 points): FNA if more than or equal to 1 cm in maximum dimension, followup ultrasound every year for 5 years if 0.5 to 0.9 cm in maximum dimension. * TR3, TR4 or TR5 nodules that are below the size threshold for follow up receive no follow up.
== END 2021-07-27 08:52 | disposition home or self-care (01) ==
LOC: HO.US 08:51
PROVIDERS: PCP Internal Medicine; Visit Provider Nurse Practitioner Gerontology
DX: E04.9 Nontoxic goiter, unspecified (principal)
CPT/HCPCS: 76536

== ENCOUNTER 2021-08-24 08:27 | Outpatient (REF) | payer OTHER, SELFPAY ==
[2021-08-24 16:18] LABS: CT PCR NOT DETECTED (Not Detect.); NG PCR NOT DETECTED (Not Detect.)
== END 2021-08-24 08:28 | disposition home or self-care (01) ==
LOC: HO.LAB 08:27
PROVIDERS: PCP Internal Medicine; Visit Provider Advanced Practice Midwife
DX: Z01.419 Encounter for gynecological examination (general) (routine) without abnormal findings (principal); N89.8 Other specified noninflammatory disorders of vagina; Z20.2 Contact with and (suspected) exposure to infections with a predominantly sexual mode of transmission
CPT/HCPCS: 87491; 87591

== ENCOUNTER 2021-09-30 15:00 | Outpatient (RCR) | payer OTHER, SELFPAY ==
[2021-08-19 13:04] VITALS: BP 120/64; PULSE 71
--- NOTE | 2021-08-19 14:14 | MHC.PT.EP ---
[facility] [place] Office [place] Office [place] Office [address] Maritza Massey [address] [phone] F: [phone] F: [phone] F: [phone] F: [phone] Physical Therapy Plan of Care Date of Evaluation: Date of Surgery: NA Diagnosis: Sciatica Assessment: Keke is a 55 year old female who is referred to PT for sciatica . Pt reports of having sudden onset of back pain about 1 month back following cleaning at home. On PT examination she presented with TTP over R SI, 6/10 pain in R SI with forward bending and lifting, decreased ROM, decreased muscle strength, altered posture and gait. She is independent with all ADLS but has pain with activities requiring her bend and carry weights. 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 She would benefit from skilled PT to address the aforementioned impairment and improve tolerance to functional activities. Frequency and Duration: The patient will be seen 2/week for 5 weeks Short Term Goals: 1. Pt will have 50% decrease in pain which will enable her to sleep through the night in 2 weeks. 2. Pt will be able to move trunk through all planes of motion which will help her dress her lower body without pain in 3 weeks. Senior Living Goals: 1. Pt will demonstrate an increase in muscle strength by 1 grade which will enable her to carry grocery in 4 weeks. 2. Pt will be independent with HEP for symptom management and maintenance following d/c in 5 weeks. Treatment Plan: Modalities to reduce pain, spasms and effusion. Manual therapy to restore motion and function. Therapeutic exercise to improve strength and flexibility. Neuromuscular re-education for posture and balance. Therapeutic activities to return to functional activities of daily living. Electronically signed by: Juanita Bro PT DPT Please sign and return to therapist. Thank you for your referral.
--- NOTE | 2021-09-30 16:03 | MHC.PT.DC ---
[facility] [place] Office [place] Office [place] Office [address] Amie Massey [address] [phone] F: [phone] F: [phone] F: [phone] F: [phone] Physical Therapy Discharge Report Diagnosis: Sciatica Date of Surgery: NA Date of Evaluation: 08/19/21 Date of Discharge: 09/30/21 Treatments to Date: 7 Cancellations to Date: 0 No Shows to Date: 0 Discharge Status: Achieved Goals Improved Function Independent with HEP Discharge Summary: Keke has been pain free for over 4 weeks. She has improved and is independent with all HEPs. She has achieved all goals set for her. She is therefore being d/c from PT today. Electronically signed by: Juanita Bro PT DPT Please sign and return to therapist. Thank you for your referral.
== END 2021-09-30 16:03 | disposition home or self-care (01) ==
LOC: HO.PT 15:00
PROVIDERS: PCP Internal Medicine; Visit Provider Nurse Practitioner Family
DX: M54.30 Sciatica, unspecified side (principal)
CPT/HCPCS: 97110; 97112; 97140; 97161; 97530

== ENCOUNTER 2021-11-03 12:02 | Outpatient (REF) | payer OTHER, SELFPAY ==
--- NOTE | ~2021-11-03 | XR_ITS ---
EXAMINATION: XR LUMBOSACRAL SPINE CLINICAL INFORMATION: Sciatica COMPARISON: Lumbar spine radiograph from 11/02/2005 TECHNIQUE: Three views of the lumbosacral spine. FINDINGS: 5 nonrib-bearing lumbar-type vertebral bodies. No acute visible fracture or dislocation. Mild multilevel degenerative changes with disc space narrowing, osteophyte formation, and lower lumbar spine facet arthropathy. Vertebral body heights and disc spaces are otherwise maintained. Posterior elements are intact. Paraspinal soft tissues are unremarkable. Visualized bowel gas is unremarkable. Pelvic phleboliths are noted. XR/XR lumbar spine 2-3V IMPRESSION: 1. No acute visible fracture or dislocation. 2. Mild multilevel degenerative changes.
== END 2021-11-03 12:03 | disposition home or self-care (01) ==
LOC: HO.XRAY 12:02
PROVIDERS: PCP Internal Medicine; Visit Provider Nurse Practitioner Family
DX: M54.30 Sciatica, unspecified side (principal)
CPT/HCPCS: 72100

== ENCOUNTER 2022-01-27 08:35 | Outpatient (REF) | payer OTHER, SELFPAY ==
[2022-01-27 10:12] LABS: Alanine Aminotransferase 25 U/L (0-31); Albumin Level 4.2 g/dL (3.5-5.0); Alkaline Phosphatase 84 U/L (39-117); Anion Gap 15 (12-20); Aspartate Amino Transferase 16 U/L (5-31); Bilirubin Total 0.7 mg/dL (0.0-1.0); Blood Urea Nitrogen 16 mg/dL (9-16); Calcium 9.4 mg/dL (8.4-10.2); Carbon Dioxide 26 mmol/L (22-29); Chloride 103 mmol/L (96-108); Cholesterol 148 mg/dL; Estimated Glomerular Filt Rate > 60; Glucose Fasting 132 mg/dL (60-99); HDL Cholesterol 41 mg/dL; LDL Cholesterol Calculated 77 mg/dl; Potassium 4.5 mmol/L (3.3-5.1); Sodium 139 mmol/L (135-145); Total Protein 7.1 g/dL (6.5-8.0); Triglycerides 151 mg/dL
--- NOTE | 2022-01-27 10:21 | P.BOP_ITS ---
Brief Operative Note Date of Service: 01/27/22 Pre-op diagnosis: Multinodular Thyroid Procedure: This is doctor Erika Moore. This is an ultrasound-guided fine-needle aspiration report. Date of Examination: 01/27/2022 Indication: Multinodular Thyroid Porcedure: Procedure was explained to the patient. Alternatives, the risk and benefits were discussed. Written consent was obtained. A time-out was also obtained. After sterile preparation, fine-needle aspiration of right mid pole 1.5 cm thyroid nodule was performed using direct ultrasound guidance to confirm accurate needle placement. Four aspirations were made using 27 gauge needles. Samples were submitted for cytology. 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 The patient tolerated the procedure well. Aftercare instructions were provided. Impression: Uncomplicated fine needle aspiration biopsy of a right mid pole 1.5 cm thyroid nodule under ultrasound guidance. Surgeon: Erika Moore, DO Was an Slabber Light used for this Procedure?: No Estimated blood loss (mL): 0
[2022-01-27 10:28] LABS: Free T4 (Free Thyroxine) 0.95 ng/dL (0.71-1.85); Thyroid Stimulating Hormone 0.97 uIU/mL (0.32-4.0)
[2022-01-27 10:56] LABS: Creatinine Urine 100.96 mg/dL; Microalbum/Creatinine Ratio Ur 5.9 ug/mg cr
[2022-01-27] MEDS: Lidocaine HCl 1 % MPF 5 ML VIAL SUBCUT (10:56)
[2022-01-27 11:01] LABS: Folate 17.8 ng/mL (> or = 4.0); Vitamin B12 784 pg/mL (200-900)
== END 2022-01-27 08:36 | disposition home or self-care (01) ==
LOC: HO.US 08:35
PROVIDERS: Absent Provider Internal Medicine; PCP Internal Medicine; Visit Provider Internal Medicine
DX: E04.9 Nontoxic goiter, unspecified (principal); E66.01 Morbid (severe) obesity due to excess calories; Z68.41 Body mass index [BMI] 40.0-44.9, adult; E78.5 Hyperlipidemia, unspecified; E11.9 Type 2 diabetes mellitus without complications; E53.8 Deficiency of other specified B group vitamins
CPT/HCPCS: 10005; 36415; 80053; 80061; 82043; 82607; 82746; 84439; 84443; 88172; 88173; 88177

== ENCOUNTER 2022-02-04 11:46 | Outpatient (REF) | payer OTHER, SELFPAY ==
--- NOTE | ~2022-02-04 | MM_ITS ---
EXAMINATION: MM SCREENING DIGITAL BREAST TOMOSYNTHESIS, BILATERAL CLINICAL INFORMATION: Screening. Asymptomatic. The lifetime risk of breast cancer based on the Tyrer-Cuzick Model is 6%. COMPARISON: Mammography: 02/02/2021, 01/28/2020, 01/22/2019, 01/12/2018 TECHNIQUE: Digital breast tomosynthesis is performed in both the craniocaudal and mediolateral oblique views along with computer-aided detection (CAD). Synthesized 2D images are generated from the tomosynthesis. Additional bilateral MLO views are provided. FINDINGS: There are scattered areas of fibroglandular density (ACR BI-RADS breast composition Category b). There are no significant masses, abnormal calcifications, or other abnormalities. Parenchymal pattern is similar to prior studies. Parenchymal pattern borders on predominantly fatty. Background stromal markings are normal. The axilla and skin contours are similar to prior studies. MM/MM tomosynthesis screening BI IMPRESSION: No mammographic evidence of malignancy. ASSESSMENT: BI-RADS 1: Negative RECOMMENDATION: Routine annual mammography screening. This patient's information was entered into a reminder system with a target due date for their next mammogram.
== END 2022-02-04 11:47 | disposition home or self-care (01) ==
LOC: HO.MAMMO 11:46
PROVIDERS: PCP Internal Medicine; Visit Provider Internal Medicine
DX: Z12.31 Encounter for screening mammogram for malignant neoplasm of breast (principal)
CPT/HCPCS: 77063; 77067

== ENCOUNTER 2022-04-28 12:36 | Outpatient (REF) | payer OTHER, SELFPAY ==
--- NOTE | ~2022-04-28 | XR_ITS ---
EXAMINATION: XR SHOULDER, RIGHT CLINICAL INFORMATION: Pain in the shoulder COMPARISON: None TECHNIQUE: Three views of the right shoulder. FINDINGS: No fracture or dislocation. The glenohumeral joint is well aligned. Joint space is maintained. The acromioclavicular joint is intact with mild hypertrophic degenerative . Soft tissue calcification adjacent to the humeral greater tuberosity. The visualized lung is clear. The visualized ribs are intact. XR/XR shoulder RT min 2V IMPRESSION: Soft tissue calcification adjacent to the humeral greater tuberosity suggestive of calcific tendinosis of the rotator cuff. Mild degenerative change of the acromioclavicular joint.
== END 2022-04-28 12:37 | disposition home or self-care (01) ==
LOC: HO.HMGCX 12:36
PROVIDERS: Visit Provider Internal Medicine
DX: M25.511 Pain in right shoulder (principal)
CPT/HCPCS: 73030

== ENCOUNTER → 2022-05-02 09:34 | Outpatient (BNVA) | payer OTHER, SELFPAY | PROVIDERS: Visit Provider Internal Medicine | DX: M75.41 Impingement syndrome of right shoulder (principal) | CPT/HCPCS: 99203 ==

== ENCOUNTER → 2022-05-10 08:59 | Outpatient (BNVA) | payer OTHER, SELFPAY | PROVIDERS: Visit Provider Internal Medicine | DX: M75.41 Impingement syndrome of right shoulder (principal) | CPT/HCPCS: 99213 ==

== ENCOUNTER 2022-05-14 09:01 | Outpatient (REF) | payer OTHER, SELFPAY ==
[2022-05-14 10:43] LABS: Alanine Aminotransferase 26 U/L (0-31); Albumin Level 4.3 g/dL (3.5-5.0); Alkaline Phosphatase 92 U/L (39-117); Anion Gap 14 (12-20); Aspartate Amino Transferase 17 U/L (5-31); Bilirubin Total 0.5 mg/dL (0.0-1.0); Blood Urea Nitrogen 14 mg/dL (9-16); Calcium 9.4 mg/dL (8.4-10.2); Carbon Dioxide 28 mmol/L (22-29); Chloride 104 mmol/L (96-108); Cholesterol 157 mg/dL; Estimated Glomerular Filt Rate > 60; Glucose Fasting 111 mg/dL (60-99); HDL Cholesterol 39 mg/dL; LDL Cholesterol Calculated 89 mg/dl; Potassium 4.2 mmol/L (3.3-5.1); Sodium 142 mmol/L (135-145); Total Protein 7.1 g/dL (6.5-8.0); Triglycerides 145 mg/dL
[2022-05-14 11:26] LABS: Creatinine Urine 197.85 mg/dL
[2022-05-14 11:55] LABS: Vitamin D 25-OH Total 38.5 ng/mL (>30)
[2022-05-14 12:28] LABS: Folate 17.1 ng/mL (> or = 4.0)
[2022-05-14 12:31] LABS: Vitamin B12 894 pg/mL (200-900)
== END 2022-05-14 09:02 | disposition home or self-care (01) ==
LOC: HO.LAB 09:01
PROVIDERS: PCP Internal Medicine; Visit Provider Internal Medicine
DX: E53.8 Deficiency of other specified B group vitamins (principal); E11.9 Type 2 diabetes mellitus without complications; E55.9 Vitamin D deficiency, unspecified; E78.5 Hyperlipidemia, unspecified; Z79.4 Long term (current) use of insulin
CPT/HCPCS: 36415; 80053; 80061; 82043; 82306; 82607; 82746

== ENCOUNTER 2022-05-17 10:47 | Outpatient (REF) | payer OTHER, SELFPAY ==
[2022-05-17 12:57] LABS: Free T4 (Free Thyroxine) 0.95 ng/dL (0.71-1.85); Thyroid Stimulating Hormone 0.82 uIU/mL (0.32-4.0); Vitamin D 25-OH Total 33.8 ng/mL (>30)
[2022-05-20 13:06] LABS: Calcium (PTHI) 9.3 mg/dL (8.6-10.4); PTHI 64 pg/mL (16-77)
== END 2022-05-17 10:48 | disposition home or self-care (01) ==
LOC: HO.LAB 10:47
PROVIDERS: PCP Internal Medicine; Visit Provider Internal Medicine
DX: E04.2 Nontoxic multinodular goiter (principal); E55.9 Vitamin D deficiency, unspecified
CPT/HCPCS: 36415; 82306; 83970; 84439; 84443

== ENCOUNTER → 2022-05-17 12:56 | Outpatient (BNVA) | payer OTHER, SELFPAY | PROVIDERS: PCP Internal Medicine; Visit Provider Internal Medicine | DX: M75.41 Impingement syndrome of right shoulder (principal) | CPT/HCPCS: 99213 ==

== ENCOUNTER → 2022-05-24 13:11 | Outpatient (BNVA) | payer OTHER, SELFPAY | PROVIDERS: PCP Internal Medicine; Visit Provider Internal Medicine | DX: M75.41 Impingement syndrome of right shoulder (principal); M25.811 Other specified joint disorders, right shoulder | CPT/HCPCS: 99213 ==

== ENCOUNTER → 2022-05-31 13:04 | Outpatient (BNVA) | payer OTHER, SELFPAY | PROVIDERS: PCP Internal Medicine; Visit Provider Internal Medicine | DX: M75.41 Impingement syndrome of right shoulder (principal) | CPT/HCPCS: 99213 ==

== ENCOUNTER → 2022-06-01 10:52 | Outpatient (BNVA) | payer OTHER, SELFPAY | PROVIDERS: PCP Internal Medicine; Visit Provider Physician Assistant | DX: M75.31 Calcific tendinitis of right shoulder (principal); M19.011 Primary osteoarthritis, right shoulder | CPT/HCPCS: 20610; 99202; J1020 ==

== ENCOUNTER 2022-06-14 11:00 | Outpatient (RCR) | payer OTHER, SELFPAY ==
--- NOTE | 2022-05-06 12:16 | MHC.PT.EP ---
[facility] [place] Office [place] Office [place] Office [address] Amie Massey [address] [phone] F: [phone] F: [phone] F: [phone] F: [phone] Physical Therapy Plan of Care Date of Evaluation: Date of Surgery: NA Diagnosis: R RTC IMPINGEMENT. XRAY +CALCIFIC TENDONOSIS Assessment: Pt IS 56 YO F REFERRED TO PT FROM (DR LANGFORD) WITH R RC IMPINGEMENT. 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 XRAY +Soft tissue calcification adjacent to the humeral greater tuberosity suggestive of calcific tendinosis of the rotator cuff. PRESENTS WITH LIMITED R SHLDER ROM AND LIMITED R UE STRENGTH. IS SCHEDULED TO SEE ORTHO (06/01 FOR POSSIBLE CORTISONE INJECTION). SHOULD BENEFIT FROM PT TO ADDRESS THESE ISSUES Frequency and Duration: The patient will be seen 2X/WK X 6 WKS Short Term Goals: 1. INCREASED POSTURE AWARENESS AND AWARENESS SHLDER CARE 2. IMPROVED SLEEP 3. 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 DECREASED R SHOULDER PAIN AT LEAST 50% WITH ADLS 2. INCREASED R SHOULDER ROM 20-30 DEGREES T/O 3. I HEP WITH DX EX PLAN 4. IMPROVED SPADI Treatment Plan: Modalities to reduce pain, spasms and effusion. Manual therapy to restore motion and function. Therapeutic exercise to improve strength and flexibility. Neuromuscular re-education for posture and balance. Therapeutic activities to return to functional activities of daily living. Electronically signed by: SHANIQUE ÁLVAREZ PT Please sign and return to therapist. Thank you for your referral.
--- NOTE | 2022-06-14 12:47 | MHC.PT.DC ---
[facility] [place] Office [place] Office [place] Office [address] Amie Massey [address] [phone] F: [phone] F: [phone] F: [phone] F: [phone] Physical Therapy Discharge Report Diagnosis: R RTC IMPINGEMENT. XRAY +CALCIFIC TENDONOSIS Date of Surgery: NA Date of Evaluation: 05/06/22 Date of Discharge: 06/14/22 Treatments to Date: 9 Cancellations to Date: No Shows to Date: Discharge Status: Achieved Goals Independent with HEP Discharge Summary: HAS MET PT GOALS OF DECREASED PAIN, IMPROVED SLEEP, RTW, INCREASED ROM Electronically signed by: SHANIQUE ÁLVAREZ PT Please sign and return to therapist. Thank you for your referral.
== END 2022-06-14 12:51 | disposition home or self-care (01) ==
LOC: HO.PT 11:00
PROVIDERS: PCP Internal Medicine; Visit Provider Internal Medicine
DX: M25.811 Other specified joint disorders, right shoulder (principal)
CPT/HCPCS: 97035; 97110; 97140; 97161; 97535

== ENCOUNTER → 2022-08-10 13:25 | Outpatient (BNVA) | payer OTHER, SELFPAY | PROVIDERS: PCP Internal Medicine; Visit Provider Physician Assistant | DX: Z13.89 Encounter for screening for other disorder (principal) ==

== ENCOUNTER → 2022-08-26 08:40 | Outpatient (BNVA) | payer OTHER, SELFPAY | PROVIDERS: PCP Internal Medicine; Visit Provider Advanced Practice Midwife | DX: Z13.89 Encounter for screening for other disorder (principal) ==

== ENCOUNTER 2022-09-01 16:31 | Outpatient (REF) | payer OTHER, SELFPAY ==
--- NOTE | ~2022-09-01 | MR_ITS ---
EXAMINATION: MR SHOULDER WITHOUT CONTRAST, RIGHT CLINICAL INFORMATION: Right shoulder pain COMPARISON: Radiographs 04/28/2022 TECHNIQUE: MRI of the shoulder without contrast was performed on a high-field scanner. FINDINGS: ROTATOR CUFF: Supraspinatus calcific tendinitis. No rotator cuff tear. No muscle atrophy or fatty infiltration. BICEPS: Normal. CORACOACROMIAL ARCH: The undersurface of the acromion is flat with no subacromial spur. Mild acromioclavicular osteoarthritis. Mild subacromial subdeltoid bursitis. LABRUM/CAPSULE: No labral tear is demonstrated. However, there is a 1.6 cm lobulated fluid collection which may represent a paralabral cyst or ganglion at the superior aspect of the glenoid suggesting a nondisplaced tear of the superior labrum. GLENOHUMERAL JOINT/MARROW: No significant joint effusion. No focal articular cartilage defect. MR/MR shoulder RT wo con IMPRESSION: 1. Supraspinatus calcific tendinitis. No rotator cuff tear. 2. Mild acromioclavicular osteoarthritis and subacromial subdeltoid bursitis. 3. Possible nondisplaced undersurface tear of the superior labrum with a 1.6 cm paralabral cyst or ganglion.
== END 2022-09-01 16:32 | disposition home or self-care (01) ==
LOC: HO.MRI 16:31
PROVIDERS: PCP Internal Medicine; Visit Provider Physician Assistant
DX: M75.31 Calcific tendinitis of right shoulder (principal); M19.011 Primary osteoarthritis, right shoulder
CPT/HCPCS: 73221

== ENCOUNTER → 2022-09-12 15:22 | Outpatient (BNVA) | payer OTHER, SELFPAY | PROVIDERS: PCP Internal Medicine; Visit Provider Physician Assistant | DX: Z13.89 Encounter for screening for other disorder (principal) ==

== ENCOUNTER 2022-10-22 08:39 | Outpatient (REF) | payer OTHER, SELFPAY ==
[2022-10-22 10:07] LABS: Alanine Aminotransferase 36 U/L (0-31); Albumin Level 4.1 g/dL (3.5-5.0); Alkaline Phosphatase 97 U/L (39-117); Anion Gap 14 (12-20); Aspartate Amino Transferase 22 U/L (5-31); Bilirubin Total 0.4 mg/dL (0.0-1.0); Blood Urea Nitrogen 14 mg/dL (9-16); Carbon Dioxide 26 mmol/L (22-29); Chloride 107 mmol/L (96-108); Cholesterol 125 mg/dL; Estimated Glomerular Filt Rate > 60; Glucose Fasting 98 mg/dL (60-99); HDL Cholesterol 37 mg/dL; Potassium 3.9 mmol/L (3.3-5.1); Sodium 143 mmol/L (135-145); Total Protein 6.8 g/dL (6.5-8.0)
[2022-10-22 11:11] LABS: Creatinine Urine 244.14 mg/dL; Microalbum/Creatinine Ratio Ur 6.9 ug/mg cr
[2022-10-26 16:08] LABS: LDL Cholesterol Calculated 71 mg/dl; Triglycerides 88 mg/dL
== END 2022-10-22 08:40 | disposition home or self-care (01) ==
LOC: HO.LAB 08:39
PROVIDERS: Absent Provider Internal Medicine; PCP Internal Medicine; Visit Provider Internal Medicine
DX: E11.65 Type 2 diabetes mellitus with hyperglycemia (principal); E55.9 Vitamin D deficiency, unspecified; E78.5 Hyperlipidemia, unspecified
CPT/HCPCS: 36415; 80053; 80061; 82043; 82306

== ENCOUNTER 2022-11-05 08:40 | Outpatient (REF) | payer OTHER, SELFPAY ==
[2022-11-05 11:19] LABS: Phosphorus 3.5 mg/dL (2.7-4.5)
[2022-11-05 11:38] LABS: Free T4 (Free Thyroxine) 0.91 ng/dL (0.71-1.85); Thyroid Stimulating Hormone 2.18 uIU/mL (0.32-4.0); Vitamin D 25-OH Total 34.6 ng/mL (>30)
[2022-11-09 13:14] LABS: Calcium (PTHI) 8.8 mg/dL (8.6-10.4); PTHI 83 pg/mL (16-77)
== END 2022-11-05 08:41 | disposition home or self-care (01) ==
LOC: HO.LAB 08:40
PROVIDERS: PCP Internal Medicine; Visit Provider Internal Medicine
DX: E04.2 Nontoxic multinodular goiter (principal); E55.9 Vitamin D deficiency, unspecified
CPT/HCPCS: 36415; 82306; 83970; 84100; 84439; 84443

== ENCOUNTER → 2022-11-16 12:12 | Outpatient (BNVA) | payer OTHER, SELFPAY | PROVIDERS: PCP Internal Medicine; Visit Provider Internal Medicine ==

== ENCOUNTER 2023-02-10 10:26 | Outpatient (REF) | payer OTHER, SELFPAY | END 2023-02-10 10:27 | disposition home or self-care (01) | LOC: HO.MAMMO 10:26 | PROVIDERS: PCP Internal Medicine; Visit Provider Internal Medicine | DX: Z12.31 Encounter for screening mammogram for malignant neoplasm of breast (principal) | CPT/HCPCS: 77063; 77067 ==

== ENCOUNTER → 2023-02-10 10:30 | Outpatient (BNV) | payer OTHER, SELFPAY | PROVIDERS: PCP Internal Medicine; Visit Provider Radiology Diagnostic Radiology | DX: Z12.31 Encounter for screening mammogram for malignant neoplasm of breast (principal) | CPT/HCPCS: 77063; 77067 ==

== ENCOUNTER 2023-03-20 16:59 | Outpatient (AMB) | payer OTHER, SELFPAY ==
--- NOTE | 2023-03-20 17:03 | A.OFFPC_ITS ---
Vital Signs 03/20/23 17:04 Height 5 ft 2 in Weight 231 lb BMI 42.2 BP 110/82 Blood Pressure Location Lt brachial Position Sitting Intake Visit Reasons: Dm Intake Note: Patient here for a follow up DM Intelligence Manager Required: No Accompanied by: Self / Same As Patient Allergies sulfamethoxazole [From Septra] Allergy (Mild, Verified 03/20/23 17:13) Rash trimethoprim [From Febra] Allergy (Mild, Verified 03/20/23 17:13) Rash metformin Adverse Reaction (Intermediate, Verified 03/20/23 17:13) Diarrhea Medication List - Last Reconciled 03/20/23 by Joanne Mckeon MD atorvastatin 80 mg PO BEDTIME 90 days blood sugar diagnostic (FreeStyle Test strips) Use 1 test strip three times a day blood sugar diagnostic (FreeStyle Lite Strips) Use 1 test strip twice a day cyanocobalamin (vitamin B-12) 500 mcg PO DAILY 90 days diclofenac sodium 1% (Arthritis Pain (diclofenac)) 2 grams topical QID 14 days dulaglutide (Trulicity) 3 mg (0.5 mL) subcut QWEEK 28 days empagliflozin (Jardiance) 25 mg PO DAILY 90 days insulin degludec (Tresiba FlexTouch U-100 insulin) 36 units (0.36 mL) subcut BEDTIME 90 days lancets (TRUEplus Lancets) Use 1 lancet three times a day levothyroxine 150 mcg PO DAILY lisinopril-hydrochlorothiazide 10-12.5 mg 1 tab PO DAILY oxycodone 5 mg PO Q4H PRN pen needle, diabetic (BD Khadijah 2nd Gen Pen Needle) USE 1 PEN NEEDLE ONCE A DAY pen needle, diabetic (BD Ultra-Fine Khadijah Pen Needle) 1 ea miscellaneous .once a day 100 days Tobacco use date assessed: 10/25/22 Dental Screening Dental Screen Date: 03/20/23 Did you have a dental visit in the last 12 months?: Yes Did you have a dental problem in the last 6 months where you did not have access to dental care?: No Was dental information given to patient?: Patient has dentist HPI HPI Comments History of Present Illness Details This is a 57-year-old female with diabetes mellitus type 2 on long-term current use of insulin, history of thyroid cancer treated with thyroidectomy, morbid obesity and mild recurrent major depression that comes today for follow- up on her conditions. A1c elevated and I will increase insulin. Thyroidectomy was done January 2023 and has follow-up appointment with endocrinology next month. She is morbidly obese with a BMI of 42.3 and was advised to diet and exercise to reach BMI goal less than 30. She declines weight loss surgery. Has mild depression that she said can control herself and declines any counseling or medication. [facility] Medical History Thyroid cancer Right shoulder pain Vitamin D deficiency Mild recurrent major depression B12 deficiency Multinodular thyroid Morbid obesity with BMI of 40.0-44.9, adult Obesity due to excess calories Diabetes type 2, uncontrolled Essential hypertension Dyslipidemia JENNIFER on CPAP Abnormal Pap smear of cervix Sleep apnea Depression Diabetes mellitus Surgical History History of partial thyroidectomy Hx of colonoscopy Hx of mammogram History of removal of cyst Hx of laparoscopic gastric banding History of tubal ligation Family History Father Heart disease Hypertension Alzheimers disease CVD (cardiovascular disease) Diabetes Mental health disorder Mother Heart disease Hypertension CVD (cardiovascular disease) Arthritis Diabetes Maternal Grandmother No problems noted. Maternal Grandfather No problems noted. Paternal Grandmother Asthma Paternal Grandfather No problems noted. 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 Khris Thompson, Teri Rodriguez, Vini Murray and colleagues, with an educational ena from [employer]. Review of Systems Const All systems reviewed & are unremarkable except as noted in HPI and below Eyes Reports no additional complaints, Denies change in vision and Denies other visual disturbances Card Denies chest pain at rest, Denies chest pain with activity, Denies edema, Denies irregular heart rhythm, Denies claudication, Denies dyspnea, Denies dyspnea on exertion, Denies orthopnea, Denies paroxysmal nocturnal dyspnea and Denies slow heart rate Resp Denies cough, Denies dyspnea and Denies dyspnea on exertion GI Denies abdominal pain, Denies change in bowel habits, Denies excessive flatus, Denies nausea and Denies vomiting Denies urinary incontinence, Denies urinary hesitancy and Denies urinary urgency Musc Denies abnormal gait, Denies atrophy, Denies deformity and Denies limited range of motion Skin/Breast Denies bleeding lesions, Denies changing lesions and Denies rash Neuro Denies abnormal gait and Denies lack of coordination Physical exam (Primary Care) Vital Signs: Last Vital Signs BP 110/82 03/20/23 17:04 BMI result Body Mass Index 42.2 Tobacco/Smoking Status: Tobacco use Status Tobacco use date assessed 10/25/22 03/20/23 17:09 Patient Tobacco Use Status Never used Tobacco 03/20/23 17:09 e-Cigarette/Vaping Use Never Used 03/20/23 17:09 Thrive Assessment: Date of Thrive Assessment Date Thrive assessed 10/25/22 03/20/23 17:09 Eyes General: appearance normal, both eyes and all related structures Eyelids: Yes eyelids normal Conjunctivae: conjunctivae normal Neck Neck: Yes normal visual inspection and Yes supple Resp Effort & Inspection: normal respiratory effort Auscultation: clear to auscultation bilaterally Cardio Jugular venous distension: no JVD Rate: regular rate Rhythm: regular rhythm Heart sounds: S1 normal heart sound present and S2 normal heart sound present Extrem General: Yes full ROM Results AMB Hemoglobin A1c AMB Hemoglobin A1c 7.3 % Last Edit by SHRUTHI Molina on 03/20/23 17:1 2 Results Reviewed Results Reviewed: Laboratory Last Values Hgb A1c (Clinic) 7.3 % (4.0-6.0) H 03/20/23 17:11 Assessment and Plan Assessment & Plan (1) Diabetes mellitus: Code(s): E11.9 - Type 2 diabetes mellitus without complications Qualifiers: Diabetes mellitus type: type 2 Diabetes mellitus snf insulin use: with termite exterminator helper use Diabetes mellitus complication status: without complication Qualified Code(s): E11.9 - Type 2 diabetes mellitus without complications; Z79.4 - 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 Continue Trulicity. A1c goal is equal or less than 7%. (2) Morbid obesity with BMI of 40.0-44.9, adult: Code(s): E66.01 - Morbid (severe) obesity due to excess calories; Z68.41 - Body mass index [BMI] 40.0-44.9, adult Plan: Advised to diet and exercise. BMI goal is less than 30. (3) Mild recurrent major depression: Code(s): F33.0 - Major depressive disorder, recurrent, mild Plan: Patient declines any counseling or medication. (4) Thyroid cancer: Code(s): C73 - Malignant neoplasm of thyroid gland Plan: Continue levothyroxine. Follow-up with endocrinology. Thyroidectomy completed in January 2023. Orders: Orders AMB Hemoglobin A1c Today E11.9 - Type 2 diabetes mellitus without complications Lipid Panel 4 Months E78.5 - Hyperlipidemia, unspecified Microalbumin, Random (w Creat) 4 Months E11.9 - Type 2 diabetes mellitus without complications Vitamin D 25-OH Total 4 Months E55.9 - Vitamin D deficiency, unspecified Comprehensive Pillow. Panel Fast 4 Months E11.9 - Type 2 diabetes mellitus without complications Medications: New lorazepam 0.5 mg PO DAILY 30 days PRN 3 tabs 0RF anxiety Changed From insulin degludec (Tresiba FlexTouch U-100 insulin) 36 units (0.36 mL) subcut BEDTIME 90 days 32.4 mL 1RF E11.65 - Type 2 diabetes mellitus with hyperglycemia To insulin degludec (Tresiba FlexTouch U-100 insulin) 38 units (0.38 mL) subcut BEDTIME 90 days 34.2 mL 1RF E11.65 - Type 2 diabetes mellitus with hyperglycemia Coding Level of Care Code Est Pt Level 4 (39422) Diagnoses Type 2 diabetes mellitus without complication, with long-term current use of insulin E11.9; Z79.4 Diabetes mellitus type: type 2 Diabetes mellitus termite exterminator helper insulin use: with snf use Diabetes mellitus complication status: without complication Morbid obesity with BMI of 40.0-44.9, adult E66.01; Z68.41 Mild recurrent major depression F33.0 Thyroid cancer C73 Time Spent (min) 23
[2023-03-20 17:04] VITALS: BP 110/82; BMI 42.2
== END 2023-03-20 17:24 | disposition home or self-care (01) ==
PROVIDERS: PCP Internal Medicine; Visit Provider Internal Medicine
DX: E11.9 Type 2 diabetes mellitus without complications (principal); Z79.4 Long term (current) use of insulin; E66.01 Morbid (severe) obesity due to excess calories; Z68.41 Body mass index [BMI] 40.0-44.9, adult; F33.0 Major depressive disorder, recurrent, mild; C73 Malignant neoplasm of thyroid gland
CPT/HCPCS: 83036; 99214

== ENCOUNTER 2023-04-18 08:02 | Outpatient (AMB) | payer OTHER, SELFPAY ==
--- NOTE | 2023-04-18 08:08 | A.OFFVIS_ITS ---
Intake Vital Signs 04/18/23 08:09 Height 5 ft 2 in Weight 234 lb 2.095 oz BMI 42.8 BP 104/76 Blood Pressure Location Lt brachial Position Sitting Pulse 72 Pulse Source Pulse Oximeter Intake Visit Reasons: Thyroid cancer Intake Note: New patient to Dr. Biggs present today for Thyroid cancer follow up visit. Previously followed by Dr. Mendoza. 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: No Accompanied by: Self / Same As Patient Allergies sulfamethoxazole [From Septra] Allergy (Mild, Verified 04/18/23 08:13) Rash trimethoprim [From Septra] Allergy (Mild, Verified 04/18/23 08:13) Rash metformin Adverse Reaction (Intermediate, Verified 04/18/23 08:13) Diarrhea Medication List - Last Reconciled 04/18/23 by Khris Biggs MD atorvastatin 80 mg PO BEDTIME 90 days blood sugar diagnostic (FreeStyle Test strips) Use 1 test strip three times a day blood sugar diagnostic (FreeStyle Lite Strips) Use 1 test strip twice a day cyanocobalamin (vitamin B-12) 500 mcg PO DAILY 90 days diclofenac sodium 1% (Arthritis Pain (diclofenac)) 2 grams topical QID 14 days dulaglutide (Trulicity) 3 mg (0.5 mL) subcut QWEEK 28 days empagliflozin (Jardiance) 25 mg PO DAILY 90 days insulin degludec (Tresiba FlexTouch U-100 insulin) 38 units (0.38 mL) subcut BEDTIME 90 days lancets (TRUEplus Lancets) Use 1 lancet three times a day levothyroxine 150 mcg PO DAILY lisinopril-hydrochlorothiazide 10-12.5 mg 1 tab PO DAILY lorazepam 0.5 mg PO DAILY PRN 30 days pen needle, diabetic (BD Khadijah 2nd Gen Pen Needle) USE 1 PEN NEEDLE ONCE A DAY pen needle, diabetic (BD Ultra-Fine Khadijah Pen Needle) 1 ea miscellaneous .once a day 100 days HPI HPI Comments History of Present Illness Details 57 YO Female who is seen in F/U for a new diagnosis of thyroid cancer. She follows with her PCP for her T2DM. She had an US of the thyroid 07/27/2021 which revealed a 1.5 cm RMP. She underwent FNA biopsy of this 01/27/2022. Cytology revealed bethesda category III atypia of undetermined significance. Affirma was suspicious, giving the risk of malignancy of 50%. She underwent a R hemithyroidectomy by Dr. Merrill 10/05/2022. 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 Tumor size was 1.6 cm. There was no angioinvasion, no lymphatic invasion, no perineural invasion and no extrathyroidal extension. Margins were uninvolved. No lymph nodes were assessed. She presents today to review these results and determine the next steps in her plan of care. Thyroid US 07/27/2021: Right Thyroid Lobe: 4.6 x 1.5 x 1.3 cm, volume 4.7 mL. Previously 3.6 x 1.4 x 1.3 cm, volume 3.4 mL. Parenchyma: The gland echotexture is homogeneous. Thyroid vascularity is normal. Left Thyroid Lobe: 4.5 x 1.3 x 1.4 cm, volume 4.3 mL. Previously 4.0 x 1.4 x 1.0 cm, volume 2.9 mL. Parenchyma: The gland echotexture is homogeneous. Thyroid vascularity is normal. Isthmus: 0.4 cm in maximum AP dimension. Previously 0.3 cm. Estimated total number of nodules greater than or equal to 1 cm: 1. Senior Product Development Manager nodules are described as follows: 1.? Location: Left mid pole. ?? ? Size: 0.5 x 0.3 x 0.5 cm, volume 0.05 mL. ?? ? Previously: 9 mm. ?? ? Nodule characteristics: ?? ? Composition: Mixed cystic and solid (1). ?? ? Echogenicity: Hyperechoic (1). ?? ? Shape: Not taller than wide (0). ?? ? Margins: Smooth (0). ?? ? Echogenic Foci: Macrocalcifications (1). Macrocalcification ?? ? ACR TI-RADS total points: 2 ?? ? ACR TI-RADS category: 2 ? Significant change in size (>/= 20% in 2 dimensions and minimal increase of 2 mm or 50% or greater increase in volume): None ?? ? Change in features: None ?? ? Change in ACR TI-RADS risk category: Not applicable 2.? Location: Left lower pole. ?? ? Size: 0.7 x 0.6 x 0.8 cm, volume 0.16 mL. ?? ? Previously: 7 mm. ?? ? Nodule characteristics: ?? ? Composition: Spongiform (0). ?? ? ACR TI-RADS total points: 0 ?? ? ACR TI-RADS category: 1 ? Significant change in size (>/= 20% in 2 dimensions and minimal increase of 2 mm or 50% or greater increase in volume): None ?? ? Change in features: None ?? ? Change in ACR TI-RADS risk category: Not applicable 3.? Location: Right lower pole. ?? ? Size: 1.6 x 1.5 x 1.4 cm, volume 1.68 mL. ?? ? Previously: Not documented. ?? ? Nodule characteristics: ?? ? Composition: Solid (2). ?? ? Echogenicity: Hypoechoic (2). ?? ? Shape: Not taller than wide (0). ?? ? Margins: Smooth (0). ?? ? Echogenic Foci: Peripheral calcifications (2). ?? ? ACR TI-RADS total points: 6 ?? ? ACR TI-RADS category: 4 ?? ? NODES: No lymphadenopathy is seen in the tissue surrounding the thyroid gland. US/US thyroid IMPRESSION: Multiple tiny thyroid nodules. The lower pole right lobe is very suspicious based on TI-RADS scale. Recommend ultrasound guided fine-needle biopsy aspiration. ? ACR TI-RADS RECOMMENDATION REFERENCE: Ultrasound-guided fine-needle aspiration, follo Labs: Laboratory Tests 11/05/22 11/05/22 08:55 08:55 25-OH Vitamin D To josselin 34.6 TSH 2.18 Free T4 0.91 PTH Intact 83 H Calcium (PTH Intac t) 8.8 She is status post completion thyroidectomy by Dr. Merrill with removal left lobe which showed benign pathology. Currently on levothyroxine 150 ug PFSH Medical History Thyroid cancer Right shoulder pain Vitamin D deficiency Mild recurrent major depression B12 deficiency Multinodular thyroid Morbid obesity with BMI of 40.0-44.9, adult Obesity due to excess calories Diabetes type 2, uncontrolled Essential hypertension Dyslipidemia JENNIFER on CPAP Abnormal Pap smear of cervix Sleep apnea Depression Diabetes mellitus Surgical History History of partial thyroidectomy Hx of colonoscopy Hx of mammogram History of removal of cyst Hx of laparoscopic gastric banding History of tubal ligation Family History Father Heart disease Hypertension Alzheimers disease CVD (cardiovascular disease) Diabetes Mental health disorder Mother Heart disease Hypertension CVD (cardiovascular disease) Arthritis Diabetes Maternal Grandmother No problems noted. Maternal Grandfather No problems noted. Paternal Grandmother Asthma Paternal Grandfather No problems noted. 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 Assessment & Plan Assessment & Plan (1) Thyroid cancer: Code(s): C73 - Malignant neoplasm of thyroid gland Plan: This 57-year-old female with a history of minimally invasive follicular carcinoma [id number]. Tumor size was 1.6 cm. There was no angioinvasion, no lymphatic invasion, no perineural invasion and no extrathyroidal extension. M argins were uninvolved. Status post completion thyroidectomy. Currently being replaced with 150 mcg levothyroxine. Considering low risk cancer, would not proceed to radioactive iodine therapy. Will check TSH, free T4 and thyroglobulin . Will also follow with neck ultrasound in 6 months or so (2) Vitamin D deficiency: Code(s): E55.9 - Vitamin D deficiency, unspecified Plan: PTH was slightly elevated.? Secondary hyperparathyroidism due to vitamin-D deficiency versus mild primary hyperparathyroidism. Suggested patient take 2000-units of vitamin-D 3. Will recheck PTH, calcium, 25 vitamin-D Orders: Orders Free T4 (Free Thyroxine) Today C73 - Malignant neoplasm of thyroid gland Thyroid Stimulating Hormone Today C73 - Malignant neoplasm of thyroid gland Thyroglobulin Tumor Marker Today C73 - Malignant neoplasm of thyroid gland PTHI Today E55.9 - Vitamin D deficiency, unspecified Vitamin D 25-OH Total Today E55.9 - Vitamin D deficiency, unspecified Coding Level of Care Code Est Pt Level 3 (20757) Diagnoses Thyroid cancer C73 Vitamin D deficiency E55.9
[2023-04-18 08:09] VITALS: BP 104/76; PULSE 72; BMI 42.8
== END 2023-04-18 08:44 | disposition home or self-care (01) ==
PROVIDERS: PCP Internal Medicine; Visit Provider Internal Medicine Endocrinology, Diabetes & Metabolism
DX: C73 Malignant neoplasm of thyroid gland (principal); E55.9 Vitamin D deficiency, unspecified
CPT/HCPCS: 99213

== ENCOUNTER → 2023-04-18 08:02 | Outpatient (BNVA) | payer OTHER, SELFPAY | PROVIDERS: PCP Internal Medicine; Visit Provider Internal Medicine Endocrinology, Diabetes & Metabolism ==

== ENCOUNTER 2023-04-18 09:36 | Outpatient (REF) | payer OTHER, SELFPAY ==
[2023-04-18 12:09] LABS: Free T4 (Free Thyroxine) 1.15 ng/dL (0.71-1.85); Thyroid Stimulating Hormone 0.16 uIU/mL (0.32-4.0); Vitamin D 25-OH Total 35.4 ng/mL (>30)
[2023-04-19 16:34] LABS: Calcium (PTHI) 9.5 mg/dL (8.6-10.4); PTHI 35 pg/mL (16-77)
[2023-04-25 08:54] LABS: Thyroglobulin Antibody <1 IU/mL (<=1); Thyroglobulin Level 0.1 ng/mL
== END 2023-04-18 09:37 | disposition home or self-care (01) ==
LOC: HO.10HDL 09:36
PROVIDERS: Visit Provider Internal Medicine Endocrinology, Diabetes & Metabolism
DX: C73 Malignant neoplasm of thyroid gland (principal); E55.9 Vitamin D deficiency, unspecified
CPT/HCPCS: 36415; 82306; 83970; 84432; 84439; 84443; 86800

== ENCOUNTER 2023-06-05 07:30 | Outpatient (REF) | payer OTHER, SELFPAY | END 2023-06-05 07:31 | disposition home or self-care (01) | LOC: HO.LAB 07:30 | PROVIDERS: PCP Internal Medicine; Referring Provider Internal Medicine; Visit Provider Internal Medicine Endocrinology, Diabetes & Metabolism | DX: C73 Malignant neoplasm of thyroid gland (principal) | CPT/HCPCS: 36415; 84439; 84443 ==

== ENCOUNTER 2023-07-15 08:36 | Outpatient (REF) | payer OTHER, SELFPAY ==
[2023-07-15 09:47] LABS: Alanine Aminotransferase 27 U/L (0-31); Albumin Level 4.1 g/dL (3.5-5.0); Alkaline Phosphatase 97 U/L (39-117); Anion Gap 10 (12-20); Aspartate Amino Transferase 18 U/L (5-31); Bilirubin Total 0.4 mg/dL (0.0-1.0); Blood Urea Nitrogen 17 mg/dL (9-16); Calcium 9.2 mg/dL (8.4-10.2); Carbon Dioxide 28 mmol/L (22-29); Chloride 109 mmol/L (96-108); Cholesterol 140 mg/dL (<200); Estimated Glomerular Filt Rate > 60; Glucose Fasting 112 mg/dL (60-99); HDL Cholesterol 40 mg/dL (>40); LDL Cholesterol Calculated 81 mg/dL (<100); Potassium 4.1 mmol/L (3.3-5.1); Sodium 143 mmol/L (135-145); Total Protein 7.4 g/dL (6.5-8.0); Triglycerides 96 mg/dL (<150)
[2023-07-15 10:04] LABS: Free T4 (Free Thyroxine) 1.01 ng/dL (0.71-1.85); Thyroid Stimulating Hormone 0.27 uIU/mL (0.32-4.0)
[2023-07-15 10:05] LABS: Vitamin D 25-OH Total 47.3 ng/mL (>30)
[2023-07-15 10:40] LABS: Creatinine Urine 203.95 mg/dL; Microalbum/Creatinine Ratio Ur 6.3 ug/mg cr (<30)
== END 2023-07-15 08:37 | disposition home or self-care (01) ==
LOC: HO.LAB 08:36
PROVIDERS: Absent Provider Internal Medicine; PCP Internal Medicine; Visit Provider Internal Medicine Endocrinology, Diabetes & Metabolism
DX: E04.2 Nontoxic multinodular goiter (principal); E11.9 Type 2 diabetes mellitus without complications; E55.9 Vitamin D deficiency, unspecified; E78.5 Hyperlipidemia, unspecified
CPT/HCPCS: 36415; 80053; 80061; 82043; 82306; 82570; 84439; 84443

== ENCOUNTER 2023-07-18 16:06 | Outpatient (AMB) | payer OTHER, SELFPAY ==
[2023-07-18 16:16] VITALS: BP 118/80; BMI 42.6
--- NOTE | 2023-07-18 16:16 | MHC.PC.OV ---
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 Required: No Accompanied by: Self / Same As Patient Allergies sulfamethoxazole [From Septra] Allergy (Mild, Verified 07/18/23 16:42) Rash trimethoprim [From Febra] Allergy (Mild, Verified 07/18/23 16:42) Rash metformin Adverse Reaction (Intermediate, Verified 07/18/23 16:42) Diarrhea Medication List - Last Reconciled 07/18/23 by Joanne Mckeon MD atorvastatin 80 mg PO BEDTIME 90 days blood sugar diagnostic (FreeStyle Test strips) Use 1 test strip three times a day blood sugar diagnostic (FreeStyle Lite Strips) Use 1 test strip twice a day cyanocobalamin (vitamin B-12) 500 mcg PO DAILY 90 days diclofenac sodium 1% (Arthritis Pain (diclofenac)) 2 grams topical QID 14 days dulaglutide (Trulicity) 3 mg (0.5 mL) subcut QWEEK 28 days empagliflozin (Jardiance) 25 mg PO DAILY 90 days insulin degludec (Tresiba FlexTouch U-100 insulin) 38 units (0.38 mL) subcut BEDTIME 90 days lancets (TRUEplus Lancets) Use 1 lancet three times a day levothyroxine 125 mcg PO DAILY lisinopril-hydrochlorothiazide 10-12.5 mg 1 tab PO DAILY lorazepam 0.5 mg PO DAILY PRN 30 days pen needle, diabetic (BD Khadijah 2nd Gen Pen Needle) USE 1 PEN NEEDLE ONCE A DAY pen needle, diabetic (BD Ultra-Fine Khadijah Pen Needle) 1 ea miscellaneous .once a day 100 days Tobacco use date assessed: 07/18/23 Dental Screening Dental Screen Date: 07/18/23 Did you have a dental visit in the last 12 months?: Yes Did you have a dental problem in the last 6 months where you did not have access to dental care?: No Was dental information given to patient?: Patient has dentist HPI HPI Comments History of Present Illness Details This is a 57-year-old female with morbid obesity, diabetes mellitus type 2 goal long-term current use of insulin, history of thyroid cancer last year, hypertension and dyslipidemia that comes today complaining of low back pain radiating to the right leg that started yesterday. She has had this in the past. No fever, bowel or bladder incontinence. Denies lifting or doing something that can cause pain. He is morbidly obese with a BMI of 42.6 was advised to diet and exercise to reach BMI goal less than 30. A1c within goal. Blood pressure stable. LDL not on goal and she admits not being compliant with low-cholesterol diet. TSH was low and plaster foreman decrease the dose. [facility] Medical History Thyroid cancer Right shoulder pain Vitamin D deficiency Mild recurrent major depression B12 deficiency Multinodular thyroid Morbid obesity with BMI of 40.0-44.9, adult Obesity due to excess calories Diabetes type 2, uncontrolled Essential hypertension Dyslipidemia JENNIFER on CPAP Abnormal Pap smear of cervix Sleep apnea Depression Diabetes mellitus Surgical History History of partial thyroidectomy Hx of colonoscopy Hx of mammogram History of removal of cyst Hx of laparoscopic gastric banding History of tubal ligation Family History Father Heart disease Hypertension Alzheimers disease CVD (cardiovascular disease) Diabetes Mental health disorder Mother Heart disease Hypertension CVD (cardiovascular disease) Arthritis Diabetes Maternal Grandmother No problems noted. Maternal Grandfather No problems noted. Paternal Grandmother Asthma Paternal Grandfather No problems noted. 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 1. Little interest or pleasure in doing things: several days 2. Feeling down, depressed, or hopeless: several days 3. Trouble falling or staying asleep, or sleeping too much: several days 4. Feeling tired or having little energy: more than half the days 5. Poor appetite or overeating: several days 6. Feeling bad about yourself - or that you are a failure or have let yourself or your family down: more than half the days 7. Trouble concentrating on things, such as reading the newspaper or watching television: not at all 8. Moving or speaking so slowly that other people could have noticed. Or the opposite - being so fidgety or restless that you have been moving around a lot more than usual: several days 9. Thoughts that you would be better off or of hurting yourself in some way: not at all Total score: 9 Depression Screening Interpretation: Positive Depression Screening Follow-up: Existing condition Depression Screening Done: Yes 08852 - PHQ-9 Billing: Yes Source: Developed by Drs. Khris Thompson, Teri Rodriguez, Vini Murray and colleagues, with an educational ena from [employer]. Thrive Questionnaire Date Thrive assessed: 07/18/23 I am a: Patient What is your living situation today?: I have a steady place to live Within the past 12 months, did the food you bought not last and you didn't have the money to get more?: Never true Within the past 12 months, did you worry whether your food would run out before you got money to buy more?: Never true Do you have trouble paying for medicines?: No Do you have trouble getting transportation to medical appointments?: No Do you have trouble paying your heating and electricity bill?: No Do you have trouble taking care of your child, family member or friend?: No Do you have trouble with day-to-day activities such as bathing, preparing meals, shopping, managing finances, etc.?: No Are you currently unemployed and looking for a job?: No Are you interested in more education?: No Please select the resources that you would like help with: None Currently or been in a relationship where the following occur: no concerns reported THRIVE Score: 0 AUDIT C Alcohol Use Questionnaire (AUDIT-C) 1. How often do you have a drink containing alcohol?: Monthly or less (weekend only) 2. How many drinks containing alcohol do you have on a typical day when you are drinking?: 3 or 4 3. How often do you have six or more drinks on one occasion?: Never (weekend only) Total Score: 2 Score Reviewed/Action Taken: No NILA-7 AMB Questionnaire NILA-7 Date NILA - 7 assessed: 07/18/23 Feeling nervous, anxious, or on edge: 1 = Several days Not being able to stop or control worryin = Several days Worrying too much about different things: 3 = Nearly every day Trouble relaxin = Several days Being so restless that it is hard to sit still: 0 = Not at all Becoming easily annoyed or irritable: 1 = Several days Feeling afraid as if something awful might happen: 0 = Not at all Total NILA-7 score (0-4 normal; 5-9 mild; 10-14 moderate; 15-21 severe): 7 Source: Developed by Drs. Khris Thompson, Teri Rodriguez, Vini Murray and colleagues, with an educational ena from [employer]. NILA-7 Assessment Billing NILA-7 Assessment Tool: NILA-7 Assessment 59880 Review of Systems Const All systems reviewed & are unremarkable except as noted in HPI and below Eyes Reports no additional complaints, Denies change in vision and Denies other visual disturbances Card Denies chest pain at rest, Denies chest pain with activity, Denies edema, Denies irregular heart rhythm, Denies claudication, Denies dyspnea, Denies dyspnea on exertion, Denies orthopnea, Denies paroxysmal nocturnal dyspnea and Denies slow heart rate Resp Denies cough, Denies dyspnea and Denies dyspnea on exertion GI Denies abdominal pain, Denies change in bowel habits, Denies excessive flatus, Denies nausea and Denies vomiting Denies urinary incontinence, Denies urinary hesitancy and Denies urinary urgency Musc Denies abnormal gait, Denies atrophy, Denies deformity and Denies limited range of motion Skin/Breast Denies bleeding lesions, Denies changing lesions and Denies rash Neuro Denies abnormal gait, Denies behavioral changes and Denies lack of coordination Psych Denies behavioral changes Physical exam (Primary Care) Vital Signs: Last Vital Signs BP 118/80 07/18/23 16:16 BMI result Body Mass Index 42.6 Tobacco/Smoking Status: Tobacco use Status Tobacco use date assessed 07/18/23 07/18/23 16:29 Patient Tobacco Use Status Never used Tobacco 07/18/23 16:29 e-Cigarette/Vaping Use Never Used 07/18/23 16:29 PHQ-9: PHQ-9 Score PHQ-9: Total score 9 07/18/23 16:29 Depression Screening Interpretation: Positive Depression Screening Follow-up: Existing condition Thrive Assessment: Date of Thrive Assessment Date Thrive assessed 07/18/23 07/18/23 16:29 Currently or been in a relationship where the following occur: no concerns reported Eyes General: appearance normal, both eyes and all related structures Eyelids: Yes eyelids normal Conjunctivae: conjunctivae normal Neck Neck: Yes normal visual inspection and Yes supple Resp Effort & Inspection: normal respiratory effort Auscultation: clear to auscultation bilaterally Cardio Jugular venous distension: no JVD Rate: regular rate Rhythm: regular rhythm Heart sounds: S1 normal heart sound present and S2 normal heart sound present Back/Spine/Pelvis Thoracic/Lumbar Spine: straight leg raise positive right Extrem General: Yes full ROM Results AMB Hemoglobin A1c AMB Hemoglobin A1c 6.8 % Last Edit by SHRUTHI Molina on 07/18/23 16:31 Results Reviewed Results Reviewed: Laboratory Last Values Hgb A1c (Clinic) 6.8 % (4.0-6.0) H 07/18/23 16:29 Assessment and Plan Assessment & Plan (1) Diabetes mellitus: Code(s): E11.9 - Type 2 diabetes mellitus without complications Qualifiers: Diabetes mellitus type: type 2 Diabetes mellitus [facility] insulin use: with [facility] use Diabetes mellitus complication status: without complication Qualified Code(s): E11.9 - Type 2 diabetes mellitus without complications; Z79.4 - terminal operations supervisor (current) use of insulin Plan: Continue insulin. A1c goal is equal or less than 7%. (2) Morbid obesity with BMI of 40.0-44.9, adult: Code(s): E66.01 - Morbid (severe) obesity due to excess calories; Z68.41 - Body mass index [BMI] 40.0-44.9, adult Plan: Start diet and exercise. BMI goal is less than 30. (3) Essential hypertension: Code(s): I10 - Essential (primary) hypertension Plan: Continue lisinopril-hydrochlorothiazide. Blood pressure goal is equal or less than 130/80. (4) Dyslipidemia: Code(s): E78.5 - Hyperlipidemia, unspecified Plan: Continue statins. LDL goal is less than 70. Start low-cholesterol diet. (5) Thyroid cancer: Code(s): C73 - Malignant neoplasm of thyroid gland Plan: Continue levothyroxine. Orders: Orders AMB Hemoglobin A1c Today E11.9 - Type 2 diabetes mellitus without complications Lipid Panel 5 Months E78.5 - Hyperlipidemia, unspecified Comprehensive [place]. Panel Fast 5 Months M54.41 - Lumbago with sciatica, right side Vitamin B12 and Folate 5 Months E53.8 - Deficiency of other specified B group vitamins Vitamin D 25-OH Total 5 Months E55.9 - Vitamin D deficiency, unspecified Medications: New ibuprofen 800 mg PO Q8H 5 days PRN 15 tabs 0RF pain Coding Level of Care Code Est Pt Level 4 (57066) Diagnoses Type 2 diabetes mellitus without complication, with long-term current use of insulin E11.9; Z79.4 Diabetes mellitus type: type 2 Diabetes mellitus terminal clerk insulin use: with terminal clerk use Diabetes mellitus complication status: without complication Morbid obesity with BMI of 40.0-44.9, adult E66.01; Z68.41 Essential hypertension I10 Dyslipidemia E78.5 Thyroid cancer C73 Additional Codes NILA-7 Assessment Billing - NILA-7 Assessment Tool: NILA-7 Assessment 23396 ([id number]) Time Spent (min) 23
== END 2023-07-18 16:50 | disposition home or self-care (01) ==
PROVIDERS: PCP Internal Medicine; Visit Provider Internal Medicine
DX: E11.69 Type 2 diabetes mellitus with other specified complication (principal); Z79.4 Long term (current) use of insulin; E66.01 Morbid (severe) obesity due to excess calories; Z68.41 Body mass index [BMI] 40.0-44.9, adult; C73 Malignant neoplasm of thyroid gland; I10 Essential (primary) hypertension; E78.5 Hyperlipidemia, unspecified
CPT/HCPCS: 83036; 99214

== ENCOUNTER 2023-08-29 07:56 | Outpatient (AMB) | payer OTHER, SELFPAY ==
--- NOTE | 2023-08-29 07:59 | A.OFFVIS_ITS ---
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 She is doing well with no concerns. Attempting to eat a healthy diet with calcium and vitamin D and stays active with exercise w/walking, unable to weight. Currently sexually active. Denies any vaginal dryness or irritation. She reports a vaginal odor. She denies any pelvic pain or dysuria. STI testing offered; she accepts. Last pap smear; 2020. Last mammogram; 2022. Denies any family history of breast cancer, FH- cousin, ovarian, M.aunt- colon cancer. [facility] Medical History Thyroid cancer Right shoulder pain Vitamin D deficiency Mild recurrent major depression B12 deficiency Multinodular thyroid Morbid obesity with BMI of 40.0-44.9, adult Obesity due to excess calories Diabetes type 2, uncontrolled Essential hypertension Dyslipidemia JENNIFER on CPAP Abnormal Pap smear of cervix Sleep apnea Depression Diabetes mellitus Surgical History History of partial thyroidectomy Hx of colonoscopy Hx of mammogram History of removal of cyst Hx of laparoscopic gastric banding History of tubal ligation Family History Father Heart disease Hypertension Alzheimers disease CVD (cardiovascular disease) Diabetes Mental health disorder Mother Heart disease Hypertension CVD (cardiovascular disease) Arthritis Diabetes Maternal Grandmother No problems noted. Maternal Grandfather No problems noted. Paternal Grandmother Asthma Paternal Grandfather No problems noted. 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 Current occupational exposures/hazards: No Gender identity: Female Cognitive needs: No Hearing needs: No Vision needs: Yes (glasses) Female Reproductive History Menstrual Age of Menarche: 8 control method: permanent sterilization Permanent Sterilization: BTL Menopause type: natural Total pregnancies: 2 Full term: 2 Number of Living Children: 2 Date of last pap smear: 09/10/20 (neg 08/16 unsat neg HPV) History of abnormal pap smear: Yes ([place] neg hpv) Date of Mammogram: 02/10/23 (Birad 1) Review of Systems Const All systems reviewed & are unremarkable except as noted in HPI and below Reports as per HPI Eyes Reports no additional complaints ENT Reports no additional complaints Card Reports no additional complaints Resp Reports no additional complaints GI Reports as per HPI and Reports no additional complaints Reports as per HPI Musc Reports no additional complaints Skin/Breast Reports as per HPI Neuro Reports no additional complaints Psych Reports no additional complaints Endo Reports no additional complaints Michelet/Lymph Reports no additional complaints Aller/Immun Reports no additional complaints Physical Exam Vital Signs: Last Vital Signs BP 120/76 08/29/23 08:01 BMI result Body Mass Index 43.3 Const General: cooperative, healthy appearing, no acute distress, well developed and alert Orientation/consciousness: patient oriented x3 HEENT Head: Yes normal to inspection Eyes General: appearance normal, both eyes and all related structures Neck Neck: Yes normal visual inspection Thyroid: Thyroid normal Chest Chest palpation & inspection: normal inspection of the chest and other (no puckering, dimpling, peau de orange, retraction, discharge, masses) Breast/axilla inspection: normal inspection of the breasts Breast/axilla palpation: normal palpation of the breasts Resp Effort & Inspection: normal respiratory effort GI Inspection: Yes normal to inspection Palpation (GI): Soft to palpation Rectal Exam - Female: deferred General: Yes bladder normal to palpation External Female Exam: normal external appearance and normal appearance of the urethra Speculum Exam - Vagina: normal appearance of the vagina, normal palpation and normal vaginal discharge (Thin white) Speculum Exam - Cervix: normal appearance of the cervix and normal palpation Bimanual exam- vagina & uterus: normal bimanual exam, normal palpation, uterine size normal, bladder normal to palpation, normal palpation and non-tender Bimanual Exam- Adnexa, other: no masses Skin General skin exam: no rashes or lesions noted Rashes: no rashes Neuro General: patient oriented x3 Cognition (Neuro): normal cognition Extrem General: Yes normal to inspection Psych Attitude: cooperative Thought process: Normal thought process present Assessment & Plan Assessment & Plan (1) Well woman exam with routine gynecological exam: Code(s): Z01.419 - Encounter for gynecological examination (general) (routine) without abnormal findings Plan Discussed: Current recommendations for pap smears per ASCCP guidelines. Breast awareness, periodic self breast exams and yearly mammogram. Maintain a healthy lifestyle, well balanced diet including Calcium 1,200 mg and Vitamin D 600 IU daily, and routine exercise. Use of condoms for STI if indicated. Follow-up with primary care regarding her colonoscopy scheduling and also to discuss weight loss strategies. Contact the office with any postmenopausal bleeding. Patient verbalizes understanding and agrees to the plan of care. She was given opportunity to ask questions and all questions were answered to the best of my ability. RTO in 1 year for annual cloth shearer exam. This note is constructed using voice recognition software. While every effort has been made to ensure accuracy, soda dialyzer errors may have been included. Coding Level of Care Code Est Pt Prev Care 40-64y(12280) Diagnoses Well woman exam with routine gynecological exam Z01.419
[2023-08-29 08:01] VITALS: BP 120/76; BMI 43.3
== END 2023-08-29 08:39 | disposition home or self-care (01) ==
LOC: HO.HWS 07:56
PROVIDERS: PCP Internal Medicine; Visit Provider Advanced Practice Midwife
DX: Z01.419 Encounter for gynecological examination (general) (routine) without abnormal findings (principal)
CPT/HCPCS: 99396

== ENCOUNTER 2023-08-29 07:56 | Outpatient (REF) | payer OTHER, SELFPAY ==
[2023-08-29 12:32] LABS: CT PCR NOT DETECTED (Not Detect.); NG PCR NOT DETECTED (Not Detect.)
[2023-08-30 14:48] LABS: BV Int Neg Control Negative (Negative); BV Int Pos Control Positive (Positive)
== END 2023-08-29 07:57 | disposition home or self-care (01) ==
LOC: HO.LAB 07:56
PROVIDERS: PCP Internal Medicine; Visit Provider Advanced Practice Midwife
DX: Z01.419 Encounter for gynecological examination (general) (routine) without abnormal findings (principal); Z20.2 Contact with and (suspected) exposure to infections with a predominantly sexual mode of transmission; N89.8 Other specified noninflammatory disorders of vagina
CPT/HCPCS: 0353U; 87480; 87510; 87660

== ENCOUNTER 2023-08-29 08:35 | Outpatient (REF) | payer OTHER, SELFPAY | END 2023-08-29 08:36 | disposition home or self-care (01) | LOC: HO.LNP 08:35 | PROVIDERS: Visit Provider Advanced Practice Midwife | DX: Z13.89 Encounter for screening for other disorder (principal) ==

== ENCOUNTER 2023-09-02 09:19 | Outpatient (REF) | payer OTHER, SELFPAY ==
[2023-09-02 11:37] LABS: Alanine Aminotransferase 31 U/L (0-31); Alkaline Phosphatase 93 U/L (39-117); Anion Gap 13 (12-20); Aspartate Amino Transferase 17 U/L (5-31); Bilirubin Total 0.4 mg/dL (0.0-1.0); Blood Urea Nitrogen 13 mg/dL (9-16); Calcium 8.9 mg/dL (8.4-10.2); Carbon Dioxide 27 mmol/L (22-29); Chloride 107 mmol/L (96-108); Cholesterol 138 mg/dL (<200); Estimated Glomerular Filt Rate > 60; Free T4 (Free Thyroxine) 0.99 ng/dL (0.71-1.85); Glucose Fasting 108 mg/dL (60-99); HDL Cholesterol 42 mg/dL (>40); LDL Cholesterol Calculated 77 mg/dL (<100); Potassium 4.2 mmol/L (3.3-5.1); Sodium 143 mmol/L (135-145); Thyroid Stimulating Hormone 2.36 uIU/mL (0.32-4.0); Triglycerides 97 mg/dL (<150); Vitamin D 25-OH Total 31.4 ng/mL (>30)
[2023-09-02 11:52] LABS: Folate 14.2 ng/mL (> or = 4.0); Vitamin B12 783 pg/mL (200-900)
[2023-09-02 12:20] LABS: Microalbum/Creatinine Ratio Ur 7.8 ug/mg cr (<30)
== END 2023-09-02 09:20 | disposition home or self-care (01) ==
LOC: HO.LAB 09:19
PROVIDERS: PCP Internal Medicine; Visit Provider Internal Medicine Endocrinology, Diabetes & Metabolism
DX: C73 Malignant neoplasm of thyroid gland (principal); E53.8 Deficiency of other specified B group vitamins; E11.9 Type 2 diabetes mellitus without complications; E55.9 Vitamin D deficiency, unspecified; E78.5 Hyperlipidemia, unspecified
CPT/HCPCS: 36415; 80053; 80061; 82043; 82306; 82570; 82607; 82746; 84439; 84443

== ENCOUNTER 2023-10-17 08:50 | Outpatient (AMB) | payer OTHER, SELFPAY ==
--- NOTE | 2023-10-17 08:52 | MHC.OFFVIS ---
Vital Signs 10/17/23 08:53 Height 5 ft 2 in Weight 235 lb BMI 43.0 BP 110/76 Blood Pressure Location Lt brachial Position Sitting Pulse 76 Pulse Source Pulse Oximeter Intake Visit Reasons: thyroid cancer Intake Note: Patient presents today for Thyroid Cancer follow up. Director Embalmer Required: No Accompanied by: Self / Same As Patient Allergies sulfamethoxazole [From Septra] Allergy (Mild, Verified 10/17/23 08:56) Rash trimethoprim [From Septra] Allergy (Mild, Verified 10/17/23 08:56) Rash metformin Adverse Reaction (Intermediate, Verified 10/17/23 08:56) Diarrhea Medication List - Last Reconciled 10/17/23 by Khris Biggs MD atorvastatin 80 mg PO BEDTIME 90 days blood sugar diagnostic (FreeStyle Test strips) Use 1 test strip three times a day blood sugar diagnostic (FreeStyle Lite Strips) Use 1 test strip twice a day cyanocobalamin (vitamin B-12) 500 mcg PO DAILY 90 days diclofenac sodium 1% (Arthritis Pain (diclofenac)) 2 grams topical QID 14 days dulaglutide (Trulicity) 3 mg (0.5 mL) subcut QWEEK 28 days empagliflozin (Jardiance) 25 mg PO DAILY 90 days ibuprofen 800 mg PO Q8H PRN 5 days insulin degludec (Tresiba FlexTouch U-100 insulin) 38 units (0.38 mL) subcut BEDTIME 90 days lancets (TRUEplus Lancets) Use 1 lancet three times a day levothyroxine 137 mcg PO DAILY lisinopril-hydrochlorothiazide 10-12.5 mg 1 tab PO DAILY lorazepam 0.5 mg PO DAILY PRN 30 days pen needle, diabetic (BD Khadijah 2nd Gen Pen Needle) USE 1 PEN NEEDLE ONCE A DAY pen needle, diabetic (BD Ultra-Fine Khadijah Pen Needle) 1 ea miscellaneous .once a day 100 days HPI Comments Details: 58 YO Female who is seen in F/U for a new diagnosis of thyroid cancer. She follows with her PCP for her T2DM. She had an US of the thyroid 07/27/2021 which revealed a 1.5 cm RMP. She underwent FNA biopsy of this 01/27/2022. Cytology revealed bethesda category III atypia of undetermined significance. Affirma was suspicious, giving the risk of malignancy of 50%. She underwent a R hemithyroidectomy by Dr. Merrill 10/05/2022. 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 Tumor size was 1.6 cm. There was no angioinvasion, no lymphatic invasion, no perineural invasion and no extrathyroidal extension. Margins were uninvolved. No lymph nodes were assessed. She presents today to review these results and determine the next steps in her plan of care. Thyroid US 07/27/2021: Right Thyroid Lobe: 4.6 x 1.5 x 1.3 cm, volume 4.7 mL. Previously 3.6 x 1.4 x 1.3 cm, volume 3.4 mL. Parenchyma: The gland echotexture is homogeneous. Thyroid vascularity is normal. Left Thyroid Lobe: 4.5 x 1.3 x 1.4 cm, volume 4.3 mL. Previously 4.0 x 1.4 x 1.0 cm, volume 2.9 mL. Parenchyma: The gland echotexture is homogeneous. Thyroid vascularity is normal. Isthmus: 0.4 cm in maximum AP dimension. Previously 0.3 cm. Estimated total number of nodules greater than or equal to 1 cm: 1. Position Classification Specialist nodules are described as follows: 1.? Location: Left mid pole. ?? ? Size: 0.5 x 0.3 x 0.5 cm, volume 0.05 mL. ?? ? Previously: 9 mm. ?? ? Nodule characteristics: ?? ? Composition: Mixed cystic and solid (1). ?? ? Echogenicity: Hyperechoic (1). ?? ? Shape: Not taller than wide (0). ?? ? Margins: Smooth (0). ?? ? Echogenic Foci: Macrocalcifications (1). Macrocalcification ?? ? ACR TI-RADS total points: 2 ?? ? ACR TI-RADS category: 2 ? Significant change in size (>/= 20% in 2 dimensions and minimal increase of 2 mm or 50% or greater increase in volume): None ?? ? Change in features: None ?? ? Change in ACR TI-RADS risk category: Not applicable 2.? Location: Left lower pole. ?? ? Size: 0.7 x 0.6 x 0.8 cm, volume 0.16 mL. ?? ? Previously: 7 mm. ?? ? Nodule characteristics: ?? ? Composition: Spongiform (0). ?? ? ACR TI-RADS total points: 0 ?? ? ACR TI-RADS category: 1 ? Significant change in size (>/= 20% in 2 dimensions and minimal increase of 2 mm or 50% or greater increase in volume): None ?? ? Change in features: None ?? ? Change in ACR TI-RADS risk category: Not applicable 3.? Location: Right lower pole. ?? ? Size: 1.6 x 1.5 x 1.4 cm, volume 1.68 mL. ?? ? Previously: Not documented. ?? ? Nodule characteristics: ?? ? Composition: Solid (2). ?? ? Echogenicity: Hypoechoic (2). ?? ? Shape: Not taller than wide (0). ?? ? Margins: Smooth (0). ?? ? Echogenic Foci: Peripheral calcifications (2). ?? ? ACR TI-RADS total points: 6 ?? ? ACR TI-RADS category: 4 ?? ? NODES: No lymphadenopathy is seen in the tissue surrounding the thyroid gland. US/US thyroid IMPRESSION: Multiple tiny thyroid nodules. The lower pole right lobe is very suspicious based on TI-RADS scale. Recommend ultrasound guided fine-needle biopsy aspiration. ? ACR TI-RADS RECOMMENDATION REFERENCE: Ultrasound-guided fine-needle aspiration, follo Labs: Laboratory Tests 11/05/22 11/05/22 08:55 08:55 25-OH Vitamin D Total 34.6 TSH 2.18 Free T4 0.91 PTH Intact 83 H Calcium (PTH Intact) 8.8 She is status post completion thyroidectomy by Dr. Merrill with removal left lobe which showed benign pathology. Currently on levothyroxine 125 ug . C/O wt gain PFSH Medical History Thyroid cancer Right shoulder pain Vitamin D deficiency Mild recurrent major depression B12 deficiency Multinodular thyroid Morbid obesity with BMI of 40.0-44.9, adult Obesity due to excess calories Diabetes type 2, uncontrolled Essential hypertension Dyslipidemia JENNIFER on CPAP Abnormal Pap smear of cervix Sleep apnea Depression Diabetes mellitus Surgical History History of partial thyroidectomy Hx of colonoscopy Hx of mammogram History of removal of cyst Hx of laparoscopic gastric banding History of tubal ligation Family History Father Heart disease Hypertension Alzheimers disease CVD (cardiovascular disease) Diabetes Mental health disorder Mother Heart disease Hypertension CVD (cardiovascular disease) Arthritis Diabetes Maternal Grandmother No problems noted. Maternal Grandfather No problems noted. Paternal Grandmother Asthma Paternal Grandfather No problems noted. 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 Assessment & Plan Assessment & Plan (1) Thyroid cancer: Code(s): C73 - Malignant neoplasm of thyroid gland Category: Medical Plan: This 57-year-old female with a history of minimally invasive follicular carcinoma [id number]. Tumor size was 1.6 cm. There was no angioinvasion, no lymphatic invasion, no perineural invasion and no extrathyroidal extension. Margins were uninvolved. Status post completion thyroidectomy. Currently being replaced with 125 mcg levothyroxine. She appears to be clinically and biochemically euthyroid but complains of fatigue and weight gain as a high normal TSH Will increase levothyroxine 137 mcg and recheck TSH, free T4 and thyroglobulin 6 weeks. Will check neck ultrasound. (2) Vitamin D deficiency: Code(s): E55.9 - Vitamin D deficiency, unspecified Category: Medical Plan: This has now resolved with increase vitamin-D with normalization of PTH Orders: Orders US soft tiss head and/or neck Today C73 - Malignant neoplasm of thyroid gland Thyroid Stimulating Hormone 6 Weeks C73 - Malignant neoplasm of thyroid gland Free T4 (Free Thyroxine) 6 Weeks C73 - Malignant neoplasm of thyroid gland Thyroglobulin Tumor Marker 6 Weeks C73 - Malignant neoplasm of thyroid gland Medications: New levothyroxine 137 mcg PO DAILY 30 tabs 5RF Discontinued levothyroxine Discontinued Reason: Doctor's Order 125 mcg PO DAILY 30 tabs 5RF
[2023-10-17 08:53] VITALS: BP 110/76; PULSE 76; BMI 43.0
== END 2023-10-17 09:17 | disposition home or self-care (01) ==
PROVIDERS: PCP Internal Medicine; Visit Provider Internal Medicine Endocrinology, Diabetes & Metabolism
DX: C73 Malignant neoplasm of thyroid gland (principal); E55.9 Vitamin D deficiency, unspecified
CPT/HCPCS: 99213

== ENCOUNTER → 2023-10-17 08:50 | Outpatient (BNVA) | payer OTHER, SELFPAY | PROVIDERS: PCP Internal Medicine; Visit Provider Internal Medicine Endocrinology, Diabetes & Metabolism ==

== ENCOUNTER 2023-10-24 14:01 | Outpatient (REF) | payer OTHER, SELFPAY ==
--- NOTE | ~2023-10-24 | US_ITS ---
EXAMINATION: US SOFT TISSUE HEAD/NECK CLINICAL INFORMATION: Malignant neoplasm of thyroid gland. History of total thyroidectomy for thyroid cancer. Rule out persistence or recurrence. COMPARISON: Thyroid ultrasound 07/27/2021. TECHNIQUE: Linear transducer gomez-scale and color Doppler examination of the thyroid bed and surrounding soft tissue. FINDINGS: Interval removal of both lobes of the thyroid gland and the isthmus of the thyroid gland. No residual tissue or other abnormality is seen within the thyroid bed. A 0.7 x 0.4 x 0.6 cm and 0.7 x 0.3 x 0.6 cm benign-appearing lymph nodes are seen on the right at level 4. 0.5 x 0.4 x 0.5 cm benign-appearing lymph node is seen on the left at level 3. 1.4 x 0.7 x 1.0 cm and 1.0 x 0.7 x 0.8 cm benign-appearing lymph nodes on the left that level 3 with fatty rolly and no cortical thickening. 0.5 x 0.2 x 0.4 cm benign-appearing lymph node is seen on the left at level 5B. US/US soft tiss head and/or neck IMPRESSION: 1. Interval removal of both lobes of the thyroid gland and the isthmus of the thyroid gland. 2. Benign-appearing bilateral cervical lymph nodes.
== END 2023-10-24 14:02 | disposition home or self-care (01) ==
LOC: HO.US 14:01
PROVIDERS: PCP Internal Medicine; Visit Provider Internal Medicine Endocrinology, Diabetes & Metabolism
DX: C73 Malignant neoplasm of thyroid gland (principal)
CPT/HCPCS: 76536

== ENCOUNTER 2023-12-02 08:20 | Outpatient (REF) | payer OTHER, SELFPAY ==
[2023-12-02 09:35] LABS: Alanine Aminotransferase 33 U/L (0-31); Alkaline Phosphatase 86 U/L (39-117); Anion Gap 13 (12-20); Aspartate Amino Transferase 19 U/L (5-31); Bilirubin Total 0.5 mg/dL (0.0-1.0); Blood Urea Nitrogen 11 mg/dL (9-16); Calcium 9.2 mg/dL (8.4-10.2); Carbon Dioxide 27 mmol/L (22-29); Chloride 107 mmol/L (96-108); Cholesterol 127 mg/dL (<200); Estimated Glomerular Filt Rate > 60; Glucose Fasting 123 mg/dL (60-99); HDL Cholesterol 35 mg/dL (>40); LDL Cholesterol Calculated 72 mg/dL (<100); Potassium 4.2 mmol/L (3.3-5.1); Sodium 143 mmol/L (135-145); Total Protein 6.9 g/dL (6.5-8.0); Triglycerides 104 mg/dL (<150)
[2023-12-02 09:53] LABS: Vitamin D 25-OH Total 47.3 ng/mL (>30)
[2023-12-02 09:54] LABS: Free T4 (Free Thyroxine) 1.12 ng/dL (0.71-1.85); Thyroid Stimulating Hormone 0.65 uIU/mL (0.32-4.0)
[2023-12-02 10:55] LABS: Folate 14.7 ng/mL (> or = 4.0); Vitamin B12 847 pg/mL (200-900)
[2023-12-06 07:09] LABS: Thyroglobulin Antibody <1 IU/mL (<=1); Thyroglobulin Level 0.1 ng/mL
== END 2023-12-02 08:21 | disposition home or self-care (01) ==
LOC: HO.LAB 08:20
PROVIDERS: Absent Provider Internal Medicine; PCP Internal Medicine; Visit Provider Internal Medicine Endocrinology, Diabetes & Metabolism
DX: C73 Malignant neoplasm of thyroid gland (principal); E53.8 Deficiency of other specified B group vitamins; E78.5 Hyperlipidemia, unspecified; M54.41 Lumbago with sciatica, right side; E55.9 Vitamin D deficiency, unspecified
CPT/HCPCS: 36415; 80053; 80061; 82306; 82607; 82746; 84432; 84439; 84443; 86800

== ENCOUNTER 2023-12-12 13:25 | Outpatient (AMB) | payer OTHER, SELFPAY ==
[2023-12-12 13:27] VITALS: BP 120/74; BMI 43.5
--- NOTE | 2023-12-12 13:27 | MHC.PC.OV ---
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 Accompanied by: Self / Same As Patient Allergies sulfamethoxazole [From Septra] Allergy (Mild, Verified 12/12/23 13:45) Rash trimethoprim [From Septra] Allergy (Mild, Verified 12/12/23 13:45) Rash metformin Adverse Reaction (Intermediate, Verified 12/12/23 13:45) Diarrhea Medication List - Last Reconciled 12/12/23 by Joanne Mckeon MD atorvastatin 80 mg PO BEDTIME 90 days blood sugar diagnostic (FreeStyle Test strips) Use 1 test strip three times a day blood sugar diagnostic (FreeStyle Lite Strips) Use 1 test strip twice a day cyanocobalamin (vitamin B-12) 500 mcg PO DAILY 90 days diclofenac sodium 1% (Arthritis Pain (diclofenac)) 2 grams topical QID 14 days dulaglutide (Trulicity) 3 mg (0.5 mL) subcut QWEEK 28 days empagliflozin (Jardiance) 25 mg PO DAILY 90 days ibuprofen 800 mg PO Q8H PRN 5 days insulin degludec (Tresiba FlexTouch U-100 insulin) 38 units (0.38 mL) subcut BEDTIME 90 days lancets (TRUEplus Lancets) Use 1 lancet three times a day levothyroxine 137 mcg PO DAILY lisinopril-hydrochlorothiazide 10-12.5 mg 1 tab PO DAILY lorazepam 0.5 mg PO DAILY PRN 30 days pen needle, diabetic (BD Khadijah 2nd Gen Pen Needle) USE 1 PEN NEEDLE ONCE A DAY pen needle, diabetic (BD Ultra-Fine Khadijah Pen Needle) 1 ea miscellaneous .once a day 100 days Tobacco use date assessed: 07/18/23 Dental Screening Dental Screen Date: 07/18/23 HPI HPI Comments History of Present Illness Details This is a 58-year-old female with diabetes mellitus type 2, hypertension, history of thyroid cancer, dyslipidemia, morbid obesity and mild major depression that comes today for follow-up on her conditions. A1c not on goal and she has been out of Trulicity for few months. I will increase Tresiba from 38 units to 42 units. Blood pressure stable. TSH normal. LDL within goal. She is morbidly obese with a BMI of 43.5 and declines weight loss surgery. Was advised to do diet and exercise to reach BMI goal less than 30. She does have mild major depression with some loss of concentration that has been present for over 2 weeks and I will start her on SSRI. No chest pain or shortness on breath. [facility] Medical History (Updated 12/12/23 @ 15:06 by Joanne Mckeon MD) Thyroid cancer Right shoulder pain Vitamin D deficiency Mild recurrent major depression B12 deficiency Multinodular thyroid Morbid obesity with BMI of 40.0-44.9, adult Obesity due to excess calories Diabetes type 2, uncontrolled Essential hypertension Dyslipidemia JENNIFER on CPAP Abnormal Pap smear of cervix Sleep apnea Depression Diabetes mellitus Surgical History History of partial thyroidectomy Hx of colonoscopy Hx of mammogram History of removal of cyst Hx of laparoscopic gastric banding History of tubal ligation Family History Father Heart disease Hypertension Alzheimers disease CVD (cardiovascular disease) Diabetes Mental health disorder Mother Heart disease Hypertension CVD (cardiovascular disease) Arthritis Diabetes Maternal Grandmother No problems noted. Maternal Grandfather No problems noted. Paternal Grandmother Asthma Paternal Grandfather No problems noted. 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 1. Little interest or pleasure in doing things: more than half the days 2. Feeling down, depressed, or hopeless: more than half the days 3. Trouble falling or staying asleep, or sleeping too much: several days 4. Feeling tired or having little energy: nearly every day 5. Poor appetite or overeating: not at all 6. Feeling bad about yourself - or that you are a failure or have let yourself or your family down: more than half the days 7. Trouble concentrating on things, such as reading the newspaper or watching television: more than half the days 8. Moving or speaking so slowly that other people could have noticed. Or the opposite - being so fidgety or restless that you have been moving around a lot more than usual: several days 9. Thoughts that you would be better off or of hurting yourself in some way: not at all Total score: 13 Depression Screening Interpretation: Positive Depression Screening Follow-up: Existing condition, New Medication prescribed and Follow-up Visit Requested Depression Screening Done: Yes 48556 - PHQ-9 Billing: Yes Source: Developed by Drs. Khris Thompson, Teri Rodriguez, Vini Murray and colleagues, with an educational ena from [employer]. Thrive Questionnaire Date Thrive assessed: 12/12/23 I am a: Patient What is your living situation today?: I have a steady place to live Within the past 12 months, did the food you bought not last and you didn't have the money to get more?: Never true Within the past 12 months, did you worry whether your food would run out before you got money to buy more?: Never true Do you have trouble paying for medicines?: No Do you have trouble getting transportation to medical appointments?: No Do you have trouble paying your heating and electricity bill?: No Do you have trouble taking care of your child, family member or friend?: No Do you have trouble with day-to-day activities such as bathing, preparing meals, shopping, managing finances, etc.?: No Are you currently unemployed and looking for a job?: No Are you interested in more education?: No Please select the resources that you would like help with: None Currently or been in a relationship where the following occur: no concerns reported THRIVE Score: 0 AUDIT C Alcohol Use Questionnaire (AUDIT-C) 1. How often do you have a drink containing alcohol?: Monthly or less 2. How many drinks containing alcohol do you have on a typical day when you are drinking?: 1 or 2 3. How often do you have six or more drinks on one occasion?: Never Total Score: 1 Score Reviewed/Action Taken: No NILA-7 AMB Questionnaire NILA-7 Date NILA - 7 assessed: 12/12/23 Feeling nervous, anxious, or on edge: 2 = More than half the days Not being able to stop or control worryin = Several days Worrying too much about different things: 2 = More than half the days Trouble relaxin = More than half the days Being so restless that it is hard to sit still: 0 = Not at all Becoming easily annoyed or irritable: 1 = Several days Feeling afraid as if something awful might happen: 1 = Several days Total NILA-7 score (0-4 normal; 5-9 mild; 10-14 moderate; 15-21 severe): 9 Source: Developed by Drs. Khris Thompson, Teri Rodriguez, Vini Murray and colleagues, with an educational ena from [employer]. NILA-7 Assessment Billing NILA-7 Assessment Tool: NILA-7 Assessment 58900 Review of Systems Const All systems reviewed & are unremarkable except as noted in HPI and below Card Denies chest pain at rest, Denies chest pain with activity, Denies edema, Denies irregular heart rhythm, Denies claudication, Denies dyspnea, Denies dyspnea on exertion, Denies orthopnea, Denies paroxysmal nocturnal dyspnea and Denies slow heart rate Resp Denies cough, Denies dyspnea and Denies dyspnea on exertion Musc Denies atrophy, Denies deformity and Denies limited range of motion Physical exam (Primary Care) Vital Signs: Last Vital Signs BP 120/74 12/12/23 13:27 BMI result Body Mass Index 43.5 BMI Assessment/Plan discussion: High BMI High, discussed plan: lifestyle, weight reduction, dietary and physical activity Tobacco/Smoking Status: Tobacco use Status Tobacco use date assessed 07/18/23 12/12/23 13:35 Patient Tobacco Use Status Never used Tobacco 12/12/23 13:35 e-Cigarette/Vaping Use Never Used 12/12/23 13:35 PHQ-9: PHQ-9 Score PHQ-9: Total score 13 12/12/23 13:45 Depression Screening Interpretation: Positive Depression Screening Follow-up: Existing condition, New Medication prescribed and Follow-up Visit Requested Thrive Assessment: Date of Thrive Assessment Date Thrive assessed 12/12/23 12/12/23 13:35 Currently or been in a relationship where the following occur: no concerns reported Resp Effort & Inspection: normal respiratory effort Auscultation: clear to auscultation bilaterally Cardio Jugular venous distension: no JVD Rate: regular rate Rhythm: regular rhythm Heart sounds: S1 normal heart sound present and S2 normal heart sound present Extrem General: Yes full ROM Results AMB Hemoglobin A1c AMB Hemoglobin A1c 7.4 % Last Edit by SHRUTHI Molina on 12/12/23 13:40 Results Reviewed Results Reviewed: Laboratory Last Values Hgb A1c (Clinic) 7.4 % (4.0-6.0) H 12/12/23 13:35 Assessment and Plan Assessment & Plan (1) Mild recurrent major depression: Code(s): F33.0 - Major depressive disorder, recurrent, mild Plan: Start sertraline. (2) Thyroid cancer: Code(s): C73 - Malignant neoplasm of thyroid gland Plan: Continue levothyroxine. Follow-up with endocrinology. (3) Morbid obesity with BMI of 40.0-44.9, adult: Code(s): E66.01 - Morbid (severe) obesity due to excess calories; Z68.41 - Body mass index [BMI] 40.0-44.9, adult Plan: Start diet and exercise. BMI goal is less than 30. 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 Continue Jardiance. A1c goal is equal or less than 7%. (5) Dyslipidemia: Code(s): E78.5 - Hyperlipidemia, unspecified Plan: Continue statins. LDL goal is less than 70. Orders: Orders AMB Hemoglobin A1c Today E11.65 - Type 2 diabetes mellitus with hyperglycemia Microalbumin, Random (w Creat) 4 Months E11.9 - Type 2 diabetes mellitus without complications Lipid Panel 4 Months E78.5 - Hyperlipidemia, unspecified Vitamin D 25-OH Total 4 Months E55.9 - Vitamin D deficiency, unspecified Comprehensive [place]. Panel Fast 4 Months E11.9 - Type 2 diabetes mellitus without complications, Z79.4 - group home (current) use of insulin Thyroid Stimulating Hormone 4 Months C73 - Malignant neoplasm of thyroid gland Medications: New sertraline 25 mg PO DAILY 90 days 90 tabs 0RF F33.0 - Major depressive disorder, recurrent, mild Changed From insulin degludec (Tresiba FlexTouch U-100 insulin) 38 units (0.38 mL) subcut BEDTIME 90 days 34.2 mL 3RF E11.65 - Type 2 diabetes mellitus with hyperglycemia To insulin degludec (Tresiba FlexTouch U-100 insulin) 42 units (0.42 mL) subcut BEDTIME 90 days 37.8 mL 3RF E11.65 - Type 2 diabetes mellitus with hyperglycemia Coding Level of Care Code Est Pt Level 4 (39796) Complex EM visit Add On G2211 Diagnoses Mild recurrent major depression F33.0 Thyroid cancer C73 Morbid obesity with BMI of 40.0-44.9, adult E66.01; Z68.41 Type 2 diabetes mellitus without complication, with long-term current use of insulin E11.9; Z79.4 Diabetes mellitus type: type 2 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
== END 2023-12-12 13:57 | disposition home or self-care (01) ==
PROVIDERS: PCP Internal Medicine; Visit Provider Internal Medicine
DX: C73 Malignant neoplasm of thyroid gland (principal); E11.65 Type 2 diabetes mellitus with hyperglycemia; Z79.4 Long term (current) use of insulin; F33.0 Major depressive disorder, recurrent, mild; E66.01 Morbid (severe) obesity due to excess calories; Z68.41 Body mass index [BMI] 40.0-44.9, adult; E78.5 Hyperlipidemia, unspecified
CPT/HCPCS: 83036; 96127; 99214; G2211

== ENCOUNTER 2024-02-16 10:09 | Outpatient (REF) | payer OTHER, SELFPAY ==
--- NOTE | ~2024-02-16 | MM_ITS ---
EXAMINATION: MM SCREENING DIGITAL BREAST TOMOSYNTHESIS, BILATERAL CLINICAL INFORMATION: Screening. Asymptomatic. COMPARISON: Mammography: This study is compared with prior exams dating back to 2019. TECHNIQUE: Digital breast tomosynthesis is performed in both the craniocaudal and mediolateral oblique views along with computer-aided detection (CAD). Synthesized 2D images are generated from the tomosynthesis. FINDINGS: There are scattered areas of fibroglandular density (ACR BI-RADS breast composition Category b). There are grouped calcifications in the upper outer quadrant of the right breast. Additional mammographic imaging with magnification is advised for further evaluation. In the left breast, there are no significant masses, abnormal calcifications, or other abnormalities. MM/MM tomosynthesis screening BI IMPRESSION: Group calcifications of the right breast warrants additional mammographic imaging with magnification. No mammographic signs malignancy left breast. ASSESSMENT: BI-RADS BI-RADS 0 - Incomplete: Needs additional Imaging. RECOMMENDATION: Additional views of the right breast. Radiology department staff will contact the patient for additional imaging. Additional Imaging required This examination should not preclude the clinical evaluation of a suspicious palpable abnormality. This patient's information was entered into a reminder system with a target due date for their next mammogram. Electronically signed by: Kenna Rahman MD 03/14/2024 10:27 PM EDT
== END 2024-02-16 10:10 | disposition home or self-care (01) ==
LOC: HO.MAMMO 10:09
PROVIDERS: PCP Internal Medicine; Visit Provider Internal Medicine
DX: Z12.31 Encounter for screening mammogram for malignant neoplasm of breast (principal)
CPT/HCPCS: 77063; 77067

== ENCOUNTER → 2024-02-16 10:30 | Outpatient (BNV) | payer OTHER, SELFPAY | PROVIDERS: PCP Internal Medicine; Visit Provider Radiology Diagnostic Radiology | DX: Z12.31 Encounter for screening mammogram for malignant neoplasm of breast (principal) | CPT/HCPCS: 77063; 77067 ==

== ENCOUNTER 2024-03-23 08:52 | Outpatient (REF) | payer OTHER, SELFPAY ==
[2024-03-23 10:10] LABS: Alanine Aminotransferase 34 U/L (0-31); Alkaline Phosphatase 107 U/L (39-117); Anion Gap 11 (12-20); Aspartate Amino Transferase 20 U/L (5-31); Bilirubin Total 0.5 mg/dL (0.0-1.0); Blood Urea Nitrogen 14 mg/dL (9-16); Calcium 9.1 mg/dL (8.4-10.2); Carbon Dioxide 29 mmol/L (22-29); Chloride 106 mmol/L (96-108); Cholesterol 143 mg/dL (<200); Estimated Glomerular Filt Rate > 60; Glucose Fasting 126 mg/dL (60-99); HDL Cholesterol 40 mg/dL (>40); LDL Cholesterol Calculated 79 mg/dL (<100); Potassium 4.3 mmol/L (3.3-5.1); Sodium 142 mmol/L (135-145); Total Protein 6.9 g/dL (6.5-8.0); Triglycerides 120 mg/dL (<150)
[2024-03-23 10:28] LABS: Thyroid Stimulating Hormone 0.14 uIU/mL (0.32-4.0); Vitamin D 25-OH Total 47.1 ng/mL (>30)
== END 2024-03-23 08:53 | disposition home or self-care (01) ==
LOC: HO.LAB 08:52
PROVIDERS: PCP Internal Medicine; Visit Provider Internal Medicine
DX: E11.9 Type 2 diabetes mellitus without complications (principal); E78.5 Hyperlipidemia, unspecified; C73 Malignant neoplasm of thyroid gland; E55.9 Vitamin D deficiency, unspecified; Z79.4 Long term (current) use of insulin
CPT/HCPCS: 36415; 80053; 80061; 82306; 84443

== ENCOUNTER 2024-03-25 07:57 | Outpatient (REF) | payer OTHER, SELFPAY ==
[2024-03-25 08:35] LABS: Creatinine Urine 121.47 mg/dL; Microalbumin Urine < 5.0 mg/L
== END 2024-03-25 07:58 | disposition home or self-care (01) ==
LOC: HO.LNP 07:57
PROVIDERS: Visit Provider Internal Medicine
DX: E11.9 Type 2 diabetes mellitus without complications (principal)
CPT/HCPCS: 82043; 82570

== ENCOUNTER 2024-03-26 08:19 | Outpatient (AMB) | payer OTHER, SELFPAY ==
--- NOTE | 2024-03-26 07:12 | A.OFFVIS_ITS ---
Vital Signs 03/26/24 08:32 Height 5 ft 2 in Weight 235 lb 14.314 oz BMI 43.1 BP 116/78 Blood Pressure Location Rt brachial Position Sitting Pulse 67 Pulse Source Pulse Oximeter Intake Visit Reasons: dm/LVM Intake Note: Patient presents today to re-establish treatment for Type 2 Diabetes Mellitus: Last Diabetic eye exam was on: DUE Last Podiatry exam was on: Does not see a Fibre Technologist Most recent HbA1c: 8.4%, 03/26/2024 Random Glucose- 262 mg/dL, Today Carton Inspector Required: No Accompanied by: Self / Same As Patient Allergies sulfamethoxazole [From Septra] Allergy (Mild, Verified 03/26/24 08:28) Rash trimethoprim [From Septra] Allergy (Mild, Verified 03/26/24 08:28) Rash metformin Adverse Reaction (Intermediate, Verified 03/26/24 08:28) Diarrhea HPI Comments Details: 58-year-old female with a history of minimally invasive follicular carcinoma [id number]. Tumor size was 1.6 cm. There was no angioinvasion, no lymphatic invasion, no perineural invasion and no extrathyroidal extension. Margins were uninvolved. Status post completion thyroidectomy. Currently being replaced with 137 mcg levothyroxine which was increased at her last visit in September from 125 mcg due to fatigue. TSH is now suppressed. She continues to feel fatigued and increasing the thyroid medication has not improved this. She reports she does have insomnia and has sleep apnea on a CPAP. She has not had any recent testing to confirm she is at the rate settings. She has purchased melatonin spray but has not tried this. She does not exercise. She consumes 1 cup of coffee in the morning. Diabetes is covered by her PCP. She was unable to get Trulicity and has a prescription for Ozempic but was concerned about taking this as she has a history of thyroid cancer. She underwent a R hemithyroidectomy by Dr. Merrill 10/05/2022. She had an US of the thyroid 07/27/2021 prior to surgery which revealed a 1.5 cm RMP. She underwent FNA biopsy of this 01/27/2022. Cytology revealed bethesda category III atypia of undetermined significance. Affirma was suspicious, giving the risk of malignancy of 50%. Last ultrasound results: Date of Service: 10/24/23 US SOFT TISSUE HEAD/NECK CLINICAL INFORMATION: Malignant neoplasm of thyroid gland. History of total thyroidectomy for thyroid cancer. Rule out persistence or recurrence. COMPARISON: Thyroid ultrasound 07/27/2021. TECHNIQUE: Linear transducer gomez-scale and color Doppler examination of the thyroid bed and surrounding soft tissue. FINDINGS: Interval removal of both lobes of the thyroid gland and the isthmus of the thyroid gland. No residual tissue or other abnormality is seen within the thyroid bed. A 0.7 x 0.4 x 0.6 cm and 0.7 x 0.3 x 0.6 cm benign-appearing lymph nodes are seen on the right at level 4. 0.5 x 0.4 x 0.5 cm benign-appearing lymph node is seen on the left at level 3. 1.4 x 0.7 x 1.0 cm and 1.0 x 0.7 x 0.8 cm benign-appearing lymph nodes on the left that level 3 with fatty rolly and no cortical thickening. 0.5 x 0.2 x 0.4 cm benign-appearing lymph node is seen on the left at level 5B. US/US soft tiss head and/or neck IMPRESSION: 1. Interval removal of both lobes of the thyroid gland and the isthmus of the thyroid gland. 2. Benign-appearing bilateral cervical lymph nodes. Previous ultrasound prior to hemithyroidectomy Date of Service: 07/27/21 Procedure(s): US thyroid Accession Number(s): [id number] cc: Joanne Salas~ EXAMINATION: US THYROID CLINICAL INFORMATION: Nontoxic goiter, unspecified. COMPARISON: Thyroid ultrasound 08/29/2006. TECHNIQUE: Linear transducer grayscale and color Doppler examination with attention to the region of the thyroid. FINDINGS: SIZE: Measurements of the thyroid lobes and nodules are given in sagittal, anteroposterior and transverse dimensions respectively. Right Thyroid Lobe: 4.6 x 1.5 x 1.3 cm, volume 4.7 mL. Previously 3.6 x 1.4 x 1.3 cm, volume 3.4 mL. Parenchyma: The gland echotexture is homogeneous. Thyroid vascularity is normal. Left Thyroid Lobe: 4.5 x 1.3 x 1.4 cm, volume 4.3 mL. Previously 4.0 x 1.4 x 1.0 cm, volume 2.9 mL. Parenchyma: The gland echotexture is homogeneous. Thyroid vascularity is normal. Isthmus: 0.4 cm in maximum AP dimension. Previously 0.3 cm. Estimated total number of nodules greater than or equal to 1 cm: 1. Mud Engineer nodules are described as follows: 1. Location: Left mid pole. Size: 0.5 x 0.3 x 0.5 cm, volume 0.05 mL. Previously: 9 mm. Nodule characteristics: Composition: Mixed cystic and solid (1). Echogenicity: Hyperechoic (1). Shape: Not taller than wide (0). Margins: Smooth (0). Echogenic Foci: Macrocalcifications (1). Macrocalcification ACR TI-RADS total points: 2 ACR TI-RADS category: 2 Significant change in size (>/= 20% in 2 dimensions and minimal increase of 2 mm or 50% or greater increase in volume): None Change in features: None Change in ACR TI-RADS risk category: Not applicable 2. Location: Left lower pole. Size: 0.7 x 0.6 x 0.8 cm, volume 0.16 mL. Previously: 7 mm. Nodule characteristics: Composition: Spongiform (0). ACR TI-RADS total points: 0 ACR TI-RADS category: 1 Significant change in size (>/= 20% in 2 dimensions and minimal increase of 2 mm or 50% or greater increase in volume): None Change in features: None Change in ACR TI-RADS risk category: Not applicable 3. Location: Right lower pole. Size: 1.6 x 1.5 x 1.4 cm, volume 1.68 mL. Previously: Not documented. Nodule characteristics: Composition: Solid (2). Echogenicity: Hypoechoic (2). Shape: Not taller than wide (0). Margins: Smooth (0). Echogenic Foci: Peripheral calcifications (2). ACR TI-RADS total points: 6 ACR TI-RADS category: 4 NODES: No lymphadenopathy is seen in the tissue surrounding the thyroid gland. US/US thyroid IMPRESSION: Multiple tiny thyroid nodules. The lower pole right lobe is very suspicious based on TI-RADS scale. Recommend ultrasound guided fine-needle biopsy aspiration. ACR TI-RADS RECOMMENDATION REFERENCE: Ultrasound-guided fine-needle aspiration, followup ultrasound, no further follow up. * TR1 (0 point) and TR 2 (2 points): No FNA or follow up * TR3 (3 points): FNA if more than or equal to 2.5 cm in maximum dimension, followup ultrasound in 1, 3 and 5 years if 1.5 to 2.4 cm in maximum dimension. * TR4 (4-6 points): FNA if more than or equal to 1.5 cm in maximum dimension, followup ultrasound in 1, 2, 3 and 5 years if 1 to 1.4 cm in maximum dimension. * TR5 (more than or equal to 7 points): FNA if more than or equal to 1 cm in maximum dimension, followup ultrasound every year for 5 years if 0.5 to 0.9 cm in maximum dimension. * TR3, TR4 or TR5 nodules that are below the size threshold for follow up receive no follow up. [facility] Medical History (Updated 03/26/24 @ 09:07 by Joan Agustin NP) Thyroid cancer Right shoulder pain Vitamin D deficiency Mild recurrent major depression B12 deficiency Multinodular thyroid Morbid obesity with BMI of 40.0-44.9, adult Obesity due to excess calories Diabetes type 2, uncontrolled Essential hypertension Dyslipidemia JENNIFER on CPAP Abnormal Pap smear of cervix Sleep apnea Depression Diabetes mellitus Surgical History History of partial thyroidectomy Hx of colonoscopy Hx of mammogram History of removal of cyst Hx of laparoscopic gastric banding History of tubal ligation Family History Father Heart disease Hypertension Alzheimers disease CVD (cardiovascular disease) Diabetes Mental health disorder Mother Heart disease Hypertension CVD (cardiovascular disease) Arthritis Diabetes Maternal Grandmother No problems noted. Maternal Grandfather No problems noted. Paternal Grandmother Asthma Paternal Grandfather No problems noted. 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 Current occupational exposures/hazards: No Gender identity: Female Cognitive needs: No Hearing needs: No Vision needs: Yes (glasses) Female Reproductive History Menstrual Age of Menarche: 8 Physical Exam Vital Signs: Last Vital Signs Pulse 67 03/26/24 08:32 BP 116/78 03/26/24 08:32 BMI result Body Mass Index 43.1 Const Other: Well-appearing female in no acute distress General: cooperative Orientation/consciousness: patient oriented x3 Limitations: no limitations Neck Other: Thyroid not palpated Neck: Yes normal visual inspection and Yes no lymphadenopathy Neuro General: patient oriented x3 Results AMB Hemoglobin A1c AMB Hemoglobin A1c 8.4 % Last Edit by SHRUTHI Cochran on 03/26/24 08:51 Results Reviewed Results Reviewed: Laboratory Last Values Glucose (Clinic) 262 mg/dL (60-115) H 03/26/24 08:36 Laboratory Tests 09/02/23 12/02/23 03/23/24 09:33 08:38 09:11 TSH 2.36 0.65 0.14 L Laboratory Tests 04/18/23 12/02/23 09:40 08:38 Thyroglobulin 0.1 H 0.1 H Laboratory Tests 12/02/23 08:38 Thyroglobulin Antibody <1 Assessment & Plan Assessment & Plan (1) Thyroid cancer: Code(s): C73 - Malignant neoplasm of thyroid gland Category: Medical Plan: This 58-year-old female with a history of minimally invasive follicular carcinoma [id number]. Tumor size was 1.6 cm. There was no angioinvasion, no lymphatic invasion, no perineural invasion and no extrathyroidal extension. Margins were uninvolved. Status post completion thyroidectomy 2021. Most recent thyroid ultrasound 10/17 shows benign appearing lymph nodes. Currently being replaced with 137 mcg levothyroxine. Which was increased at her last visit due to fatigue. TSH is now suppressed and she does not report an improvement in her energy level. Sensor TSH is suppressed we will convert her back to her previous dose of 125 mcg and she will recheck her blood work 6 weeks after making the dose change. I will recheck thyroid ultrasound prior to her next visit with Dr. Biggs 10/18. She is followed by her PCP for diabetes. She was given a prescription for low- dose Mounjaro and advised that the contraindication is for patients who have medullary thyroid cancer a not minimally invasive follicular cancer. She will follow up with her PCP for additional dose escalation on Mounjaro and advised that if her and her PCP would like endocrinology to follow her diabetes that a consult would be placed as we are currently following her for thyroid cancer only. She was counseled on side effects of Mounjaro including headache, nausea, vomiting, diarrhea, constipation, rare pancreatitis in gallbladder attack and contraindicated with a history of MEN1 or thyroid medullary cancer which he does not have. (2) Insomnia: Code(s): G47.00 - Insomnia, unspecified Plan She was advised to discuss with her PCP having a sleep study on CPAP to determine if she is at the right settings. She was counseled to increase her ex ercise and could try melatonin she has already purchased. Could try introducing white noise such as [employer]. Orders: Orders Thyroglobulin 6 Weeks C73 - Malignant neoplasm of thyroid gland Thyroglobulin Tumor Marker 6 Weeks C73 - Malignant neoplasm of thyroid gland Thyroid Stimulating Hormone 6 Weeks C73 - Malignant neoplasm of thyroid gland AMB Hemoglobin A1c Today E11.9 - Type 2 diabetes mellitus without complications, Z79.4 - residential (current) use of insulin US thyroid 6 Months C73 - Malignant neoplasm of thyroid gland Free T4 (Free Thyroxine) 6 Weeks C73 - Malignant neoplasm of thyroid gland Medications: New tirzepatide (Mounjaro) 2.5 mg (0.5 mL) subcut QWEEK 4 weeks 2 mL 4RF E11.9 - Type 2 diabetes mellitus without complications, Z79.4 - 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 treater 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 (current) use of insulin levothyroxine 125 mcg PO DAILY 90 days 90 tabs 3RF C73 - Malignant neoplasm of thyroid gland Mounjaro (tirzepatide) 5 mg (0.5 mL) subcut QWEEK 28 days 2 mL 1RF NS E11.9 - Type 2 diabetes mellitus without complications, Z79.4 - residential (current) use of insulin Discontinued dulaglutide (Trulicity) Discontinued Reason: Doctor's Order 3 mg (0.5 mL) subcut QWEEK 28 days 2 mL 6RF E11.65 - Type 2 diabetes mellitus with hyperglycemia levothyroxine Discontinued Reason: Doctor's Order 137 mcg PO DAILY 90 tabs 1RF Coding Level of Care Code Est Pt Level 4 (32868) Complex EM visit Add On G2211 Diagnoses Thyroid cancer C73 Insomnia G47.00 Time Spent (min) 40 Comment Time spent reviewing labs/provider notes, face to face, chart doc
[2024-03-26 08:32] VITALS: BP 116/78; PULSE 67; BMI 43.1
[2024-03-26 08:40] LABS: Glucose, Whole Blood 262 mg/dL (60-115)
== END 2024-03-26 08:56 | disposition home or self-care (01) ==
PROVIDERS: PCP Internal Medicine; Visit Provider Nurse Practitioner Adult Health
DX: E11.9 Type 2 diabetes mellitus without complications (principal); Z79.4 Long term (current) use of insulin; C73 Malignant neoplasm of thyroid gland; G47.00 Insomnia, unspecified
CPT/HCPCS: 99214

== ENCOUNTER → 2024-03-26 08:19 | Outpatient (BNVA) | payer OTHER, SELFPAY | PROVIDERS: PCP Internal Medicine; Visit Provider Nurse Practitioner Adult Health | DX: C73 Malignant neoplasm of thyroid gland (principal); E89.0 Postprocedural hypothyroidism; G47.00 Insomnia, unspecified; E11.9 Type 2 diabetes mellitus without complications; Z79.4 Long term (current) use of insulin | CPT/HCPCS: 82947; 83036 ==

== ENCOUNTER 2024-04-11 14:46 | Outpatient (REF) | payer OTHER, SELFPAY ==
--- NOTE | ~2024-04-11 | MM_ITS ---
EXAMINATION: MM DIAGNOSTIC DIGITAL BREAST TOMOSYNTHESIS, RIGHT CLINICAL INFORMATION: Diagnostic exam to evaluate grouped microcalcifications seen right breast upper outer quadrant, middle one third, on screening exam. COMPARISON: Mammography: 02/16/2024, and available prior exams. TECHNIQUE: Digital breast tomosynthesis is performed in the following views: 2-D spot magnification right CC and ML views. Computer-aided diagnosis was used for this study. FINDINGS: There are scattered areas of fibroglandular density (ACR BI-RADS breast composition Category b). In the upper outer right breast, central to posterior one third, there are loosely grouped predominantly punctate calcifications, which appear to have increased in number over prior exams. No significant pleomorphism, linear, casting, or branching forms. No definite suspicious distribution. These have a probably benign morphology, and six-month follow-up recommended to ensure stability. There are no significant suspicious findings. MM/MM added views RT IMPRESSION: No findings suspicious for malignancy right breast. Calcifications in the upper outer quadrant right breast, middle to posterior one third, are probably benign in morphology, and six-month follow-up magnification views recommended to ensure stability. ASSESSMENT: BI-RADS BI-RADS 3 - Probably benign finding(s) - 6 month follow-up suggested RECOMMENDATION: 6 Month F/U This patient's information was entered into a reminder system with a target due date for their next mammogram. Electronically signed by: Lennox Peters MD 04/11/2024 03:39 PM EDT Workstation: [id number]
== END 2024-04-11 14:47 | disposition home or self-care (01) ==
LOC: HO.MAMMO 14:46
PROVIDERS: PCP Internal Medicine; Visit Provider Internal Medicine
DX: R92.1 Mammographic calcification found on diagnostic imaging of breast (principal)
CPT/HCPCS: 77065

== ENCOUNTER → 2024-04-11 15:00 | Outpatient (BNV) | payer OTHER, SELFPAY | PROVIDERS: PCP Internal Medicine; Visit Provider Radiology Diagnostic Radiology | DX: R92.1 Mammographic calcification found on diagnostic imaging of breast (principal) | CPT/HCPCS: 77061; 77065 ==

== ENCOUNTER 2024-04-18 16:27 | Outpatient (AMB) | payer OTHER, SELFPAY ==
[2024-04-18 16:30] VITALS: BP 110/70; BMI 43.2
--- NOTE | 2024-04-18 16:30 | A.OFFPC_ITS ---
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 Machine Tender Required: No Accompanied by: Self / Same As Patient Allergies sulfamethoxazole [From Septra] Allergy (Mild, Verified 04/18/24 16:38) Rash trimethoprim [From Febra] Allergy (Mild, Verified 04/18/24 16:38) Rash metformin Adverse Reaction (Intermediate, Verified 04/18/24 16:38) Diarrhea Medication List - Last Reconciled 04/18/24 by Joanne Mckeon MD atorvastatin 80 mg PO BEDTIME 90 days blood sugar diagnostic (FreeStyle Test strips) Use 1 test strip three times a day blood sugar diagnostic (FreeStyle Lite Strips) Use 1 test strip twice a day cyanocobalamin (vitamin B-12) 500 mcg PO DAILY 90 days diclofenac sodium 1% (Arthritis Pain (diclofenac)) 2 grams topical QID 14 days empagliflozin (Jardiance) 25 mg PO DAILY 90 days ibuprofen 800 mg PO Q8H PRN 5 days insulin degludec (Tresiba FlexTouch U-100 insulin) 42 units (0.42 mL) subcut BEDTIME 90 days lancets (TRUEplus Lancets) Use 1 lancet three times a day levothyroxine 112 mcg PO DAILY 90 days lisinopril-hydrochlorothiazide 10-12.5 mg 1 tab PO DAILY lorazepam 0.5 mg PO DAILY PRN 30 days Mounjaro (tirzepatide) 5 mg (0.5 mL) subcut QWEEK 28 days NS pen needle, diabetic (BD Khadijah 2nd Gen Pen Needle) USE 1 PEN NEEDLE ONCE A DAY pen needle, diabetic (BD Ultra-Fine Khadijah Pen Needle) 1 ea miscellaneous .once a day 100 days sertraline 25 mg PO DAILY 90 days Tobacco use date assessed: 07/18/23 Dental Screening Dental Screen Date: 04/18/24 Did you have a dental visit in the last 12 months?: Yes Did you have a dental problem in the last 6 months where you did not have access to dental care?: No Was dental information given to patient?: Patient has dentist HPI HPI Comments History of Present Illness Details This is a 58-year-old female with mild major depression, diabetes mellitus type 2 on long-term current use of insulin, hypertension, dyslipidemia, morbid obesity and history of thyroid cancer that comes today for follow-up on her conditions. Depression stable with SSRIs. A1c elevated and I will increase Mounjaro. Blood pressure stable. LDL close to goal and dietary changes were advised. She is morbidly obese with a BMI of 43.2 and was advised to diet and exercise. Declines weight loss surgery. Last TSH was low and her thyroid dose was changed. Endocrinology follow-up thyroid cancer and diabetes. Complains of hot flashes. No chest pain or shortness on breath. Her last menstrual period was at 49 years old. [facility] Medical History Thyroid cancer Right shoulder pain Vitamin D deficiency Mild recurrent major depression B12 deficiency Multinodular thyroid Morbid obesity with BMI of 40.0-44.9, adult Obesity due to excess calories Diabetes type 2, uncontrolled Essential hypertension Dyslipidemia JENNIFER on CPAP Abnormal Pap smear of cervix Sleep apnea Depression Diabetes mellitus Surgical History History of partial thyroidectomy Hx of colonoscopy Hx of mammogram History of removal of cyst Hx of laparoscopic gastric banding History of tubal ligation Family History Father Heart disease Hypertension Alzheimers disease CVD (cardiovascular disease) Diabetes Mental health disorder Mother Heart disease Hypertension CVD (cardiovascular disease) Arthritis Diabetes Maternal Grandmother No problems noted. Maternal Grandfather No problems noted. Paternal Grandmother Asthma Paternal Grandfather No problems noted. 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 Khris Thompson, Teri Rodriguez, Vini Murray and colleagues, with an educational ena from [employer]. Review of Systems Const All systems reviewed & are unremarkable except as noted in HPI and below Card Denies chest pain at rest, Denies chest pain with activity, Denies edema, Denies irregular heart rhythm, Denies claudication, Denies dyspnea, Denies dyspnea on exertion, Denies orthopnea, Denies paroxysmal nocturnal dyspnea and Denies slow heart rate Resp Denies cough, Denies dyspnea and Denies dyspnea on exertion GI Denies abdominal pain, Denies change in bowel habits, Denies excessive flatus, Denies nausea and Denies vomiting Physical exam (Primary Care) Vital Signs: Last Vital Signs BP 110/70 04/18/24 16:30 BMI result Body Mass Index 43.2 BMI Assessment/Plan discussion: High BMI High, discussed plan: lifestyle, weight reduction, dietary and physical activity Tobacco/Smoking Status: Tobacco use Status Tobacco use date assessed 07/18/23 04/18/24 16:35 Patient Tobacco Use Status Never used Tobacco 04/18/24 16:35 e-Cigarette/Vaping Use Never Used 04/18/24 16:35 Thrive Assessment: Date of Thrive Assessment Date Thrive assessed 12/12/23 04/18/24 16:35 Resp Effort & Inspection: normal respiratory effort Auscultation: clear to auscultation bilaterally Cardio Jugular venous distension: no JVD Rate: regular rate Rhythm: regular rhythm Heart sounds: S1 normal heart sound present and S2 normal heart sound present Extrem General: Yes full ROM Office Procedures Flu Questionnaire Does the patient have a severe egg allergy?: No Immunizations Fluarix Triv [id number] (PF) 45 mcg (15 mcg x 3)/0.5 mL IM syringe Performing Provider: Joanne Mckeon MD [place] [facility] [place] [facility] Documented (not given) by: SHRUTHI Molina on 04/18/24 16:36 Reason Not Given: Patient Refused Coding Level of Care Code Est Pt Level 4 (42352) Complex EM visit Add On G2211 Diagnoses Type 2 diabetes mellitus without complication, with long-term current use of insulin E11.9; Z79.4 Diabetes mellitus type: type 2 Diabetes mellitus behavioral school counselors insulin use: with residential use Diabetes mellitus complication status: without complication Essential hypertension I10 Dyslipidemia E78.5 Morbid obesity with BMI of 40.0-44.9, adult E66.01; Z68.41 Mild recurrent major depression F33.0 Thyroid cancer C73 Time Spent (min) 23 Assessment & Plan Assessment & Plan (1) Diabetes mellitus: Code(s): E11.9 - Type 2 diabetes mellitus without complications Category: Medical Qualifiers: Diabetes mellitus type: type 2 Diabetes mellitus residential insulin use: with behavioral school counselors use Diabetes mellitus complication status: without complication Qualified Code(s): E11.9 - Type 2 diabetes mellitus without complications; Z79.4 - technology lab 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 Increase Mounjaro. A1c goal is equal or less than 7%. (2) Essential hypertension: Code(s): I10 - Essential (primary) hypertension Category: Medical Plan: Continue lisinopril-hydrochlorothiazide. Blood pressure goal is equal or less than 130/80. (3) Dyslipidemia: Code(s): E78.5 - Hyperlipidemia, unspecified Category: Medical Plan: Continue statins. LDL goal is less than 70. Start low-cholesterol diet. (4) Morbid obesity with BMI of 40.0-44.9, adult: Code(s): E66.01 - Morbid (severe) obesity due to excess calories; Z68.41 - Body mass index [BMI] 40.0-44.9, adult Category: Medical Plan: Start diet and exercise. BMI goal is less than 30. Consider weight loss surgery. (5) Mild recurrent major depression: Code(s): F33.0 - Major depressive disorder, recurrent, mild Category: Medical Plan: Continue SSRIs. (6) Thyroid cancer: Code(s): C73 - Malignant neoplasm of thyroid gland Category: Medical Plan: Continue levothyroxine. Monitor TSH. Orders: Orders Influenza [id number] Immunization 04/18/24 Z23 - Encounter for immunization Lipid Panel 4 Months E78.5 - Hyperlipidemia, unspecified Microalbumin, Random (w Creat) 4 Months R80.9 - Proteinuria, unspecified Vitamin B12 and Folate 4 Months E53.8 - Deficiency of other specified B group vitamins Vitamin D 25-OH Total 4 Months E55.9 - Vitamin D deficiency, unspecified Comprehensive [place]. Panel Fast 4 Months E11.9 - Type 2 diabetes mellitus without complications, Z79.4 - [facility] (current) use of insulin Thyroid Stimulating Hormone 4 Months C73 - Malignant neoplasm of thyroid gland Medications: New tirzepatide (Mounjaro) 7.5 mg (0.5 mL) subcut QWEEK 4 weeks 2 mL 0RF Discontinued Mounjaro (tirzepatide) Discontinued Reason: Patient Completed Course 5 mg (0.5 mL) subcut QWEEK 28 days 2 mL 1RF NS E11.9 - Type 2 diabetes mellitus without complications, Z79.4 - [facility] (current) use of insulin
== END 2024-04-18 16:49 | disposition home or self-care (01) ==
PROVIDERS: PCP Internal Medicine; Visit Provider Internal Medicine
DX: E11.69 Type 2 diabetes mellitus with other specified complication (principal); Z79.4 Long term (current) use of insulin; E66.01 Morbid (severe) obesity due to excess calories; Z68.41 Body mass index [BMI] 40.0-44.9, adult; F33.0 Major depressive disorder, recurrent, mild; C73 Malignant neoplasm of thyroid gland; I10 Essential (primary) hypertension; E78.5 Hyperlipidemia, unspecified

== ENCOUNTER → 2024-04-18 16:27 | Outpatient (BNVA) | payer OTHER, SELFPAY | PROVIDERS: PCP Internal Medicine; Visit Provider Internal Medicine | DX: E11.9 Type 2 diabetes mellitus without complications (principal); I10 Essential (primary) hypertension; E78.5 Hyperlipidemia, unspecified; E66.01 Morbid (severe) obesity due to excess calories; Z68.41 Body mass index [BMI] 40.0-44.9, adult; F33.0 Major depressive disorder, recurrent, mild; C73 Malignant neoplasm of thyroid gland; Z79.4 Long term (current) use of insulin; Z79.899 Other long term (current) drug therapy | CPT/HCPCS: 90471 ==

== ENCOUNTER 2024-05-04 08:08 | Emergency (ER) | payer OTHER, SELFPAY ==
--- NOTE | ~2024-05-04 | CT_ITS ---
EXAMINATION: CT ABDOMEN AND PELVIS WITHOUT CONTRAST CLINICAL INFORMATION: Low back pain and urinary symptoms evaluate for colic COMPARISON: None available. TECHNIQUE: Multidetector volumetric imaging was performed from the superior aspect of the liver through the pubic symphysis. Sagittal and coronal reformatted images were obtained on the technologist's workstation. This CT examination was performed using dose optimization techniques as appropriate, variously including the following: *Automated exposure control *Adjustment of mA and/or kV according to patient size (this includes techniques or standardized protocols for targeted exams where dose is matched to indication/reason for exam; i.e. extremities or head) *Use of iterative reconstruction technique DLP: 809 mGy-cm FINDINGS: LUNG BASES: No pneumothorax. No large pleural effusion. LIVER, GALLBLADDER, AND BILIARY TREE: The liver is normal in size, shape, and attenuation. No focal hepatic lesion or biliary ductal dilatation is present. The gallbladder is unremarkable with no evidence of radiopaque gallstones, gallbladder wall thickening, or obvious pericholecystic inflammatory changes. PANCREAS: Unremarkable. SPLEEN: Unremarkable. 1.0 cm splenule. ADRENAL GLANDS: Unremarkable. KIDNEYS AND URETERS: The kidneys are normal in size, shape, and attenuation. No hydronephrosis, hydroureter, or calculi seen. No perinephric stranding. BLADDER: Unremarkable. GASTROINTESTINAL TRACT: Colonic diverticulosis without acute diverticulitis. The small and large bowel are unremarkable. The appendix is unremarkable. ABDOMINAL WALL: No significant hernia is appreciated. LYMPH NODES/MESENTERY: No enlarged lymph nodes for size criteria. Multiple subcentimeter mesenteric lymph nodes with haziness noted nonspecific though may reflect an element of mesenteric adenitis in the appropriate clinical setting. Correlation with symptomatology. VASCULAR: Abdominal aorta is nonaneurysmal. Pelvic phleboliths are noted. PELVIC VISCERA: Anteverted uterus. OSSEOUS STRUCTURES: Multilevel degenerative changes of the thoracolumbar and lumbosacral spine. CT/CT abdomen pelvis wo IV con IMPRESSION: 1. Multiple subcentimeter nonenlarged mesenteric lymph nodes with haziness noted nonspecific though may reflect an element of mesenteric adenitis in the appropriate clinical setting. Correlation with symptomatology. 2. Colonic diverticulosis without diverticulitis. Electronically signed by: Vish Strong MD 05/04/2024 10:02 AM [facility]
--- NOTE | ~2024-05-04 | US_ITS ---
EXAMINATION:US PELVIS TRANSABDOMINAL AND TRANSVAGINAL CLINICAL INFORMATION: pelvic pain, h/o uterine cancer COMPARISON: No priors available. LMP: Postmenopausal FINDINGS: Exam limited by patient's body habitus UTERUS: Uterus is retroverted. Size: 7.3 x 3.6 x 4.6 cm. Uterine mass: There is no uterine mass. Cervix: Grossly unremarkable. Endometrium: Endometrium is thickened endometrial thickness measures 1 cm, this is abnormal for patient's age and postmenopausal status cannot rule out pathology, ADNEXA: Ovaries not visualized might have been obscured by bowel gas. FREE FLUID: Trace amount of free fluid. OTHER FINDINGS: None US/US pelvic and transvaginal IMPRESSION: 1. Exam limited by patient's body habitus. 2. Heterogeneously thickened endometrium measuring up to 1 cm, this is abnormal for patient's age and postmenopausal status cannot rule out pathology. 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 If not performed follow-up ultrasound or MRI with contrast in 6 weeks recommended. 3. Ovaries not visualized might have been obscured by bowel gas. Electronically signed by: Diane Michael MD 05/04/2024 11:59 AM SOFI
[2024-05-04 08:14] VITALS: BP 120/64; PULSE 75; RESP 16; TEMP 36.6; O2SAT 96; BMI 42.9
[2024-05-04 08:47] LABS: MANUAL DIFF FLAG NO
[2024-05-04 08:49] LABS: Appearance Urine Cloudy; Color Urine Yellow; Glucose Urine UA >=1000 mg/dL (Negative); Leukocyte Esterase Urine Small (1+) (Negative); Nitrite Urine Negative (Negative); PH 5.5 (5.0-9.0); Specific Gravity - Urine >= 1.030 (1.005-1.025); UMIC TRIGGER UACC YES; Urine Blood Negative (Negative); Urine Ketones Trace mg/dL (Negative); Urine Protein Trace mg/dL (Neg-Trace)
[2024-05-04 08:50] LABS: Basophils Percent Auto 0.6 % (0-2); Eosinophils Absolute Auto 0.1 X10*3/uL (0.0-0.4); Eosinophils Percent Auto 0.9 % (0-4); Hematocrit 43.5 % (37.0-47.0); Hemoglobin 13.5 g/dl (12.0-16.0); Imm Gran Abs Auto 0.02 X10*3/uL (0.00-0.03); Imm Gran Pct Auto 0.3 % (0.0-0.4); Lymphocytes Absolute Auto 1.9 X10*3/uL (1.2-4.9); Lymphocytes Percent Auto 26.9 % (20-40); Mean Corpuscular Hemoglobin 21.6 pg (27.0-33.0); Mean Corpuscular Volume 69.7 fL (80.0-98.0); Mean Platelet Volume 10.5 fL (9.4-12.3); Monocytes Absolute Auto 0.6 X10*3/uL (0.1-1.2); Neutrophils Absolute Auto 4.4 x10*3/uL (2.0-8.3); Neutrophils Percent Auto 63.3 % (45-73); Platelet Count 251 X10*3/uL (160-400); Red Blood Count 6.24 X10*6/uL (4.20-5.50); Red Cell Distribution Width 17.2 % (11.0-16.0)
[2024-05-04 09:05] LABS: Bacteria Urine 2+ (None Seen); Hyaline Casts Urine 0-2 /LPF (0-2); RBC Urine 0-2 /HPF (0-2); UACC Culture Trigger YES
[2024-05-04 09:15] LABS: Alanine Aminotransferase 35 U/L (0-31); Albumin Level 4.1 g/dL (3.5-5.0); Alkaline Phosphatase 91 U/L (39-117); Anion Gap 13 (12-20); Aspartate Amino Transferase 25 U/L (5-31); Bilirubin Total 0.6 mg/dL (0.0-1.0); Blood Urea Nitrogen 18 mg/dL (9-16); Carbon Dioxide 27 mmol/L (22-29); Chloride 107 mmol/L (96-108); Creatinine Clr Calc Pharmacy 99.2; Estimated Glomerular Filt Rate > 60; Glucose Random 124 mg/dL (60-115); Potassium 3.9 mmol/L (3.3-5.1); Sodium 143 mmol/L (135-145); Total Protein 7.3 g/dL (6.5-8.0)
--- NOTE | 2024-05-04 09:17 | ED_ITS ---
HPI - Female Genitourinary General Chief complaint: Urogenital-Female Stated complaint: lower abd pain into back Time Seen by Provider: 05/04/24 09:07 Source: patient Mode of arrival: ambulatory Limitations: no limitations History of Present Illness ED Provider: Shirin Grullon APRN HPI Narrative: 58 yo female with PMH of depression, DM, HLD, HTN, obesity, uterine cancer s/p ablative procedure/course of oral chemotherapy here with complaints of 3 days of intermittent lower abdominal pain/lower back pain described as sharp/stabbing. +nausea. No vomiting. +chronic constipation with last BM this morning. +urinary frequency/urgency and foul odor. No hematuria, fevers, chills, vaginal discharge, rashes/lesions. No concerns for STI. No new sexual partners. Does not get her menses. She has yearly appointments with her OBGYN and her last Pap smear was in October which was normal. Related Data Previous Rx's ?Medication ?Instructions ?Recorded lancets 33 gauge (TRUEplus Lancets) #100 ea 10/27/20 diclofenac sodium 1 % topical gel 2 g topical QID 14 days #100 grams 07/27/21 (Arthritis Pain (diclofenac)) pen needle, diabetic 32 gauge x ##30 12/21/21 (BD Khadijah 2nd Gen Pen Needle) blood sugar diagnostic (FreeStyle #100 ea 08/08/22 Test strips) blood sugar diagnostic (FreeStyle #50 ea 08/11/22 Lite Strips) lorazepam 0.5 mg tablet 0.5 mg PO DAILY PRN anxiety 30 03/20/23 days #3 tabs ibuprofen 800 mg tablet 800 mg PO Q8H PRN pain 5 days #15 07/18/23 tabs cyanocobalamin (vitamin B-12) 500 500 mcg PO DAILY 90 days #90 tabs 08/18/23 mcg tablet lisinopril 10 1 tab PO DAILY #90 tabs 08/18/23 mg-hydrochlorothiazide 12.5 mg tablet empagliflozin 25 mg tablet 25 mg PO DAILY 90 days #90 tabs 12/04/23 (Jardiance) insulin degludec 100 unit/mL (3 42 unit (0.42 mL) subcut BEDTIME 12/12/23 mL) subcutaneous pen (Tresiba 90 days #37.8 mL FlexTouch U-100 insulin) pen needle, diabetic 32 gauge x 1 ea miscellaneous .once a day 100 01/06/24 (BD Ultra-Fine Khadijah Pen days #100 ea Needle) atorvastatin 80 mg tablet 80 mg PO BEDTIME 90 days #90 tabs 01/31/24 sertraline 25 mg tablet 25 mg PO DAILY 90 days #90 tabs 01/31/24 levothyroxine 112 mcg tablet 112 mcg PO DAILY 90 days #90 tabs 04/06/24 tirzepatide 7.5 mg/0.5 mL 7.5 mg (0.5 mL) subcut QWEEK 4 04/18/24 subcutaneous pen injector weeks #2 mL (Mounjaro) ibuprofen 600 mg tablet 600 mg PO Q8H PRN pain #9 tabs 05/04/24 Allergies Allergy/AdvReac Type Severity Reaction Status Date / Time sulfamethoxazole Allergy Mild Rash Verified 05/04/24 08:16 [From ] trimethoprim [From ] Allergy Mild Rash Verified 05/04/24 08:16 metformin AdvReac Intermediate Diarrhea Verified 05/04/24 08:16 Review of Systems 2 Review of Systems: Yes all other systems are reviewed and are negative Constitutional: Constitutional: Reports no additional constitutional complaints, Denies body ache(s), Denies chills, Denies fever(s), Denies headache(s), Denies night sweats, Denies weakness and Denies weight loss Eyes: Eyes: Reports no additional eye complaints and Denies change in vision ENT: Reports system reviewed and no additional complaints, except as documented, Denies dizziness, Denies headache(s), Denies nasal congestion, Denies nasal discharge and Denies neck pain Cardiovascular: Cardiovascular: Reports no additional cardiovascular complaints, Denies chest pain, Denies leg edema and Denies dyspnea Respiratory: Respiratory: Reports no additional respiratory complaints, Denies cough and Denies dyspnea Gastrointestinal: Gastrointestinal: Reports no additional gastrointestinal complaints, Reports abdominal pain, Reports constipation, Denies diarrhea, Reports nausea and Denies vomiting Genitourinary: Genitourinary: Reports no additional female genitourinary complaints, Denies abnormal vaginal bleeding, Denies hematuria, Reports dysuria, Reports pelvic pain, Denies flank pain, Denies urinary incontinence, Denies urinary hesitancy, Reports urinary urgency and Denies vaginal discharge Musculoskeletal: Musculoskeletal: Reports no additional musculoskeletal complaints, Denies back pain, Denies arthralgias, Denies joint swelling, Denies neck pain, Denies numbness and Denies tingling Integumentary/Breasts: Skin/Breast: Reports system reviewed and no additional complaints, except as docu and Denies rash Neurologic: Reports system reviewed and no additional complaints, except as documented, Denies Abnormal speech present, Denies dizziness, Denies headache(s), Denies numbness, Denies tingling and Denies weakness PMFSH Past Medical History Attestation statement: The following information was validated with the patient. Source: old records reviewed and nursing notes reviewed Medical History Thyroid cancer Right shoulder pain Vitamin D deficiency Mild recurrent major depression B12 deficiency Multinodular thyroid Morbid obesity with BMI of 40.0-44.9, adult Obesity due to excess calories Diabetes type 2, uncontrolled Essential hypertension Dyslipidemia JENNIFER on CPAP Abnormal Pap smear of cervix Sleep apnea Depression Diabetes mellitus Surgical History History of partial thyroidectomy Hx of colonoscopy Hx of mammogram History of removal of cyst Hx of laparoscopic gastric banding History of tubal ligation Family History Family History Father Heart disease Hypertension Alzheimers disease CVD (cardiovascular disease) Diabetes Mental health disorder Mother Heart disease Hypertension CVD (cardiovascular disease) Arthritis Diabetes Maternal Grandmother No problems noted. Maternal Grandfather No problems noted. Paternal Grandmother Asthma Paternal Grandfather No problems noted. 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 Current occupational exposures/hazards: No Gender identity: Female Cognitive needs: No Hearing needs: No Vision needs: Yes (glasses) Physical Exam 2 Vital Signs: Vital Signs: Last Vital Signs Temp 98 F 05/04/24 08:14 Pulse 75 05/04/24 08:14 Resp 16 05/04/24 08:14 BP 120/64 05/04/24 08:14 Pulse Ox 96 05/04/24 08:14 O2 Del Method Room Air 05/04/24 08:14 BMI result Body Mass Index 42.9 Const: General: cooperative, healthy appearing, comfortable and no acute distress Orientation/consciousness: patient oriented x3 Limitations: no limitations HEENT: Head: Yes normal to inspection Ears: hearing grossly normal bilaterally General nose exam: Normal external nose present Face and sinus: Yes normal facial exam Mouth: Normal oral and palatal mucosa present Throat: Yes posterior oropharynx normal Eyes: General: appearance normal, both eyes and all related structures P upils: Equal, round and reactive pupils present Neck: Neck: Yes normal visual inspection, Yes full ROM, Yes no lymphadenopathy and Yes no meningeal signs Chest: Chest palpation & inspection: normal inspection of the chest Resp: Effort & Inspection: normal respiratory effort Auscultation: clear to auscultation bilaterally Cardio: Rate: regular rate Rhythm: regular rhythm Peripheral pulses: P eripheral pulses 2+ throughout GI: Inspection: Yes normal to inspection and No distended Palpation (GI): S oft to palpation and nontender Auscultation: normal bowel sounds : General: Yes no CVA tenderness Back/Spine/Pelvis: Back: no CVA tenderness Thoracic/Lumbar Spine: thoracic and lumbar spine normal to inspection Skin: General skin exam: no rashes or lesions noted Neuro: General: patient oriented x3, no meningeal signs, no focal motor deficits and normal sensation to monofilament Cranial nerves: Yes Equal, round and reactive pupils present Cognition (Neuro): normal cognition S peech: No Abnormal speech present Gait exam (Neuro): Normal gait present M otor exam (neuro): 5/5 motor strength present throughout Extrem: General: Yes normal to inspection Course Course Course Narrative: CT shows mesenteric adenitis. Labs are unremarkable with the exception of a mildly elevated lipase but there is no clinical evidence of pancreatitis. Patient has also meningeal P 1 which may cause elevated lipase levels. She has no focal left upper quadrant pain. She has no CT findings concerning for acute pancreatitis. She is still having some pelvic discomfort and with her history of uterine malignancy I will obtain a pelvic ultrasound. If this is normal I will discharge her home with pain management and recommendations to follow up outpatient with her providers. Reevaluation(s) Reevaluation #1: 1200-pelvic ultrasound shows a thickened endometrium. This is abnormal for patient's age and postmenopausal state cannot rule out pathology. Radiologist recommended If not already obtained, [employer] OF DIRECTORS consultation recommended, consider D&C. If not performed follow-up ultrasound or MRI with contrast in 6 weeks recommended. I reviewed the findings with the patient and she was provided with a copy of the report. She does see our [facility]. I recommend that she follow up with them and give them a call on Monday. Reviewed worrisome signs and symptoms of when to return to the emergency room. Comfortable plan for discharge home. Medications Administered Discontinued Medications Generic Name Dose Route Start Last Admin Trade Name Freq PRN Reason Stop Dose Admin Ketorolac Tromethamine 30 mg 05/04/24 09:16 05/04/24 09:36 Ketorolac Tromethamine 30 Mg/Ml Vial IM 05/04/24 09:17 30 mg ONCE ONE Administration Medical Decision Making Medical Decision Making [facility] Narrative: 58 yo female here with 3 days of intermittent lower abdominal pain/back pain with nausea, urinary symptoms. On exam patient has no focal abdominal pain or CVA tenderness. Normal bowel sounds. Nontoxic appearing. Will obtain labs, UA, CT. May need pelvic ultrasound Will provide analgesia Differential Diagnosis Differential Diagnoses: The differential diagnosis associated with the presentation includes UTI, renal colic, pyelonephritis, ovarian cyst Low suspicion for acute appendicitis, diverticulitis, ovarian torsion, PID Admission/Observation Consideration of admission/observation: Escalation of care including admission/observation considered See course of care Lab Data [facility] Lab Attestation statement: I reviewed the patient's lab results. 05/04/24 08:43 05/04/24 08:43 Labs: Lab Results 05/04/24 Range/Units 08:43 WBC 7.0 (4.8-10.8) X10*3/uL RBC 6.24 H (4.20-5.50) X10*6/uL Hgb 13.5 (12.0-16.0) g/dl Hct 43.5 (37.0-47.0) % MCV 69.7 L (80.0-98.0) fL MCH 21.6 L (27.0-33.0) pg MCHC 31.0 (31.0-35.0) g/dl RDW 17.2 H (11.0-16.0) % Plt Count 251 (160-400) X10*3/uL MPV 10.5 (9.4-12.3) fL Immature Gran % (Auto) 0.3 (0.0-0.4) % Neut % (Auto) 63.3 (45-73) % Lymph % (Auto) 26.9 (20-40) % [place] % (Auto) 8.0 (2-11) % Eos % (Auto) 0.9 (0-4) % Baso % (Auto) 0.6 (0-2) % Lymph # (Auto) 1.9 (1.2-4.9) X10*3/uL [place] # (Auto) 0.6 (0.1-1.2) X10*3/uL Eos # (Auto) 0.1 (0.0-0.4) X10*3/uL Baso # (Auto) 0.0 (0.0-0.2) X10*3/uL Abs Immat Gran (auto) 0.02 (0.00-0.03) X10*3/uL Absolute Neuts (auto) 4.4 (2.0-8.3) x10*3/uL Absolute Nucleated RBC 0.000 (0.0-0.012) X10*3/uL Nucleated RBC % (auto) 0.0 (0.0-0.2) /100WBC Sodium 143 (135-145) mmol/L Potassium 3.9 (3.3-5.1) mmol/L Chloride 107 (96-108) mmol/L Carbon Dioxide 27 (22-29) mmol/L Anion Gap 13 (12-20) BUN 18 H (9-16) mg/dL Creatinine 0.70 (0.5-1.4) mg/dL Estim Creat Clear Calc 99.2 Estimated GFR > 60 Random Glucose 124 H (60-115) mg/dL Calcium 9.0 (8.4-10.2) mg/dL Total Bilirubin 0.6 (0.0-1.0) mg/dL AST 25 (5-31) U/L ALT 35 H (0-31) U/L Alkaline Phosphatase 91 (39-117) U/L Total Protein 7.3 (6.5-8.0) g/dL Albumin 4.1 (3.5-5.0) g/dL Lipase 81 H (8-78) U/L Urine Color Yellow Urine Appearance Cloudy Urine pH 5.5 (5.0-9.0) Ur Specific [place] >= 1.030 H (1.005-1.025) Urine Protein Trace (Neg-Trace) mg/dL Urine Glucose (UA) >=1000 H (Negative) mg/dL Urine Ketones Trace (Negative) mg/dL Urine Blood Negative (Negative) Urine Nitrite Negative (Negative) Ur Leukocyte Esterase Small (1+) H (Negative) Urine RBC 0-2 (0-2) /HPF Urine WBC 11-20 (0-5) /HPF Ur Squamous Epith Cells 6-10 (0-2) /HPF Urine Bacteria 2+ (None Seen) Hyaline Casts 0-2 (0-2) /LPF Independent Interpretation I performed an independent interpretation of an: Ultrasound and CT Scan Interpretation: I independently reviewed the CT scan and pelvic US and agree with the rad report Radiology Impression Discussion of test interpretation with radiology: I have reviewed the radiologist's reading. Radiologist Impression: [place] [id number] CT Scan Report Signed Patient: Keke Hicks MR#: [id number] : 1965 Acct:[id number] Age/Sex: 58 / F ADM Date: 05/04/24 Loc: .ED Attending Dr: Ordering Physician: Shirin Cervantes NP Date of Service: 05/04/24 Procedure(s): CT abdomen pelvis wo IV con Accession Number(s): [id number] cc: Joanne Hernandez MD; Shirin Cervantes NP~ EXAMINATION: CT ABDOMEN AND PELVIS WITHOUT CONTRAST CLINICAL INFORMATION: Low back pain and urinary symptoms evaluate for colic COMPARISON: None available. TECHNIQUE: Multidetector volumetric imaging was performed from the superior aspect of the liver through the pubic symphysis. Sagittal and coronal reformatted images were obtained on the technologist's workstation. This CT examination was performed using dose optimization techniques as appropriate, variously including the following: *Automated exposure control *Adjustment of mA and/or kV according to patient size (this includes techniques or standardized protocols for targeted exams where dose is matched to indication/reason for exam; i.e. extremities or head) *Use of iterative reconstruction technique DLP: 809 mGy-cm FINDINGS: LUNG BASES: No pneumothorax. No large pleural effusion. LIVER, GALLBLADDER, AND BILIARY TREE: The liver is normal in size, shape, and attenuation. No focal hepatic lesion or biliary ductal dilatation is present. The gallbladder is unremarkable with no evidence of radiopaque gallstones, gallbladder wall thickening, or obvious pericholecystic inflammatory changes. PANCREAS: Unremarkable. SPLEEN: Unremarkable. 1.0 cm splenule. ADRENAL GLANDS: Unremarkable. KIDNEYS AND URETERS: The kidneys are normal in size, shape, and attenuation. No hydronephrosis, hydroureter, or calculi seen. No perinephric stranding. BLADDER: Unremarkable. GASTROINTESTINAL TRACT: Colonic diverticulosis without acute diverticulitis. The small and large bowel are unremarkable. The appendix is unremarkable. ABDOMINAL WALL: No significant hernia is appreciated. LYMPH NODES/MESENTERY: No enlarged lymph nodes for size criteria. Multiple subcentimeter mesenteric lymph nodes with haziness noted nonspecific though may reflect an element of mesenteric adenitis in the appropriate clinical setting. Correlation with symptomatology. VASCULAR: Abdominal aorta is nonaneurysmal. Pelvic phleboliths are noted. PELVIC VISCERA: Anteverted uterus. OSSEOUS STRUCTURES: Multilevel degenerative changes of the thoracolumbar and lumbosacral spine. CT/CT abdomen pelvis wo IV con IMPRESSION: 1. Multiple subcentimeter nonenlarged mesenteric lymph nodes with haziness noted nonspecific though may reflect an element of mesenteric adenitis in the appropriate clinical setting. Correlation with symptomatology. 2. Colonic diverticulosis without diverticulitis. [address] [address] Ultrasound Report Signed Patient: Keke Hicks MR#: [id number] : 1965 Acct:[id number] Age/Sex: 58 / F ADM Date: 05/04/24 Loc: HO.ED Attending Dr: Ordering Physician: Shirin Cervantes NP Date of Service: 05/04/24 Procedure(s): US pelvic and transvaginal Accession Number(s): [id number] cc: Joanne Hernandez MD; Shirin Cervantes NP~ EXAMINATION:US PELVIS TRANSABDOMINAL AND TRANSVAGINAL CLINICAL INFORMATION: pelvic pain, h/o uterine cancer COMPARISON: No priors available. LMP: Postmenopausal FINDINGS: Exam limited by patient's body habitus UTERUS: Uterus is retroverted. Size: 7.3 x 3.6 x 4.6 cm. Uterine mass: There is no uterine mass. Cervix: Grossly unremarkable. Endometrium: Endometrium is thickened endometrial thickness measures 1 cm, this is abnormal for patient's age and postmenopausal status cannot rule out pathology, ADNEXA: Ovaries not visualized might have been obscured by bowel gas. FREE FLUID: Trace amount of free fluid. OTHER FINDINGS: None US/US pelvic and transvaginal IMPRESSION: 1. Exam limited by patient's body habitus. 2. Heterogeneously thickened endometrium measuring up to 1 cm, this is abnormal for patient's age and postmenopausal status cannot rule out pathology. If not already obtained, [employer] OF DIRECTORS consultation recommended, consider D&C. If not performed follow-up ultrasound or MRI with contrast in 6 weeks recommended. 3. Ovaries not visualized might have been obscured by bowel gas. Electronically signed by: Diane Michael MD 05/04/2024 11:59 AM EST Prescription Management I considered prescription management with: Pain Medication Discharge Plan Discharge Clinical Impression: Abdominal pain Patient Disposition: Home, Self-Care Instructions: Abdominal Pain (ED) Additional Instructions: Your CT scan shows some swollen lymph nodes which will resolve with their own. Your ultrasound of your pelvis does show a thickened wall of your uterus. The radiologist does recommend that you follow-up with OBGYN outpatient as you may need to have additional testing done to rule out cancer. Please call your OBGYN on Monday morning Take the medication as prescribed You may return for any worsening symptoms Ultrasound findings. FINDINGS: Exam limited by patient's body habitus UTERUS: Uterus is retroverted. Size: 7.3 x 3.6 x 4.6 cm. Uterine mass: There is no uterine mass. Cervix: Grossly unremarkable. Endometrium: Endometrium is thickened endometrial thickness measures 1 cm, this is abnormal for patient's age and postmenopausal status cannot rule out pathology, ADNEXA: Ovaries not visualized might have been obscured by bowel gas. FREE FLUID: Trace amount of free fluid. OTHER FINDINGS: None US/US pelvic and transvaginal IMPRESSION: 1. Exam limited by patient's body habitus. 2. Heterogeneously thickened endometrium measuring up to 1 cm, this is abnormal for patient's age and postmenopausal status cannot rule out pathology. If not already obtained, [employer] OF DIRECTORS consultation recommended, consider D&C. If not performed follow-up ultrasound or MRI with contrast in 6 weeks recommended. 3. Ovaries not visualized might have been obscured by bowel gas. Prescriptions: New ibuprofen 600 mg tablet 600 mg PO Q8H PRN (Reason: pain) Qty: 9 0RF No Action (DME) pen needle, diabetic [BD Khadijah 2nd Gen Pen Needle] 32 gauge x 5/32 needle See Rx Instructions .ROUTE .COMPLEX Qty: 30 12RF Dose Instruction: USE 1 PEN NEEDLE ONCE A DAY Rx Instructions: USE 1 PEN NEEDLE ONCE A DAY (DME) FreeStyle Test Strip See Rx Instructions .ROUTE .MEDSUPPLY Qty: 100 11RF Rx Instructions: Use 1 test strip three times a day (DME) FreeStyle Lite Strips Strip See Rx Instructions .Route Qty: 50 6RF Rx Instructions: Use 1 test strip twice a day lisinopril-hydrochlorothiazide 10-12.5 mg tablet 1 tab PO DAILY Qty: 90 4RF cyanocobalamin (vitamin B-12) 500 mcg tablet 500 mcg PO DAILY 90 Days Qty: 90 4RF Jardiance 25 mg tablet 25 mg PO DAILY 90 Days Qty: 90 3RF pen needle, diabetic [BD Ultra-Fine Khadijah Pen Needle] 32 gauge x 5/32 needle 1 ea miscellaneous .once a day 100 Days Qty: 100 1RF atorvastatin 80 mg tablet 80 mg PO BEDTIME 90 Days Qty: 90 1RF sertraline 25 mg tablet 25 mg PO DAILY 90 Days Qty: 90 0RF levothyroxine 112 mcg tablet 112 mcg PO DAILY 90 Days Qty: 90 1RF diclofenac sodium [Arthritis Pain (diclofenac)] 1 % gel 2 g topical QID 14 Days Qty: 100 0RF Rx Instructions: apply to single elbow, wrist or hand; for hand includes palm/fingers/back of hand lorazepam 0.5 mg tablet 0.5 mg PO DAILY PRN (Reason: anxiety) 30 Days Qty: 3 0RF insulin degludec [Tresiba FlexTouch U-100] 100 unit/mL (3 mL) insulin pen 42 unit subcut BEDTIME 90 Days Qty: 37.8 3RF ibuprofen 800 mg tablet 800 mg PO Q8H PRN (Reason: pain) 5 Days Qty: 15 0RF (DME) lancets [TRUEplus Lancets] 33 gauge misc See Rx Instructions .ROUTE .MEDSUPPLY Qty: 100 11RF Rx Instructions: Use 1 lancet three times a day Mounjaro 7.5 mg/0.5 mL pen injector 7.5 mg subcut QWEEK 28 Days Qty: 2 0RF Referrals: Jaya Be MD [Physician] - 1 week Print Language: Yoruba
[2024-05-04] MEDS: Ketorolac Tromethamine 30 MG/ML VIAL IM (09:36)
[2024-05-04 09:46] LABS: Lipase 81 U/L (8-78)
[2024-05-04 12:22] VITALS: BP 120/64; PULSE 75; RESP 16; TEMP 36.6; O2SAT 96
== END 2024-05-04 12:22 | disposition home or self-care (01) ==
PROVIDERS: Nurse Practitioner Family; Emergency Provider Emergency Medicine; PCP Internal Medicine
DX: R10.9 Unspecified abdominal pain (principal); M54.50 Low back pain, unspecified; E11.9 Type 2 diabetes mellitus without complications; I10 Essential (primary) hypertension; E78.5 Hyperlipidemia, unspecified; Z79.4 Long term (current) use of insulin; Z79.899 Other long term (current) drug therapy; Z79.02 Long term (current) use of antithrombotics/antiplatelets
CPT/HCPCS: 36415; 74176; 76830; 76856; 80053; 81001; 83690; 85025; 87086; 96372; 99283; 99284; J1885

== ENCOUNTER 2024-05-14 08:07 | Outpatient (AMB) | payer OTHER, SELFPAY ==
[2024-05-14 08:11] VITALS: BP 112/68
--- NOTE | 2024-05-14 08:11 | A.OFFVIS_ITS ---
Vital Signs 05/14/24 08:11 BP 112/68 Intake Visit Reasons: US findings Accompanied by: Self / Same As Patient Allergies sulfamethoxazole [From Septra] Allergy (Mild, Verified 05/14/24 08:11) Rash trimethoprim [From Septra] Allergy (Mild, Verified 05/14/24 08:11) Rash metformin Adverse Reaction (Intermediate, Verified 05/14/24 08:11) Diarrhea HPI Comments Details: Presenting for ED follow-up. The patient went to the emergency room on 05/04 for pelvic cramping with no vaginal bleeding the following workup was done 05/04/2024 pelvic ultrasound showed the following: UTERUS: Uterus is retroverted. Size: 7.3 x 3.6 x 4.6 cm. Uterine mass: There is no uterine mass. Cervix: Grossly unremarkable. Endometrium: Endometrium is thickened endometrial thickness measures 1 cm, this is abnormal for patient's age and postmenopausal status cannot rule out pathology, ADNEXA: Ovaries not visualized might have been obscured by bowel gas. FREE FLUID: Trace amount of free fluid. OTHER FINDINGS: None Urine dip was negative for blood and nitrites and urine culture was negative Last co testing in 09/13 was negative Last mammogram in 04/18 was BI-RADS 3, six-month follow-up recommended [facility] Medical History Thyroid cancer Right shoulder pain Vitamin D deficiency Mild recurrent major depression B12 deficiency Multinodular thyroid Morbid obesity with BMI of 40.0-44.9, adult Obesity due to excess calories Diabetes type 2, uncontrolled Essential hypertension Dyslipidemia JENNIFER on CPAP Abnormal Pap smear of cervix Sleep apnea Depression Diabetes mellitus Surgical History History of partial thyroidectomy Hx of colonoscopy Hx of mammogram History of removal of cyst Hx of laparoscopic gastric banding History of tubal ligation Family History Father Heart disease Hypertension Alzheimers disease CVD (cardiovascular disease) Diabetes Mental health disorder Mother Heart disease Hypertension CVD (cardiovascular disease) Arthritis Diabetes Maternal Grandmother No problems noted. Maternal Grandfather No problems noted. Paternal Grandmother Asthma Paternal Grandfather No problems noted. 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 Current occupational exposures/hazards: No Gender identity: Female Cognitive needs: No Hearing needs: No Vision needs: Yes (glasses) Female Reproductive History Menstrual Age of Menarche: 8 Review of Systems Const All systems reviewed & are unremarkable except as noted in HPI and below Physical Exam Vital Signs: Last Vital Signs BP 112/68 05/14/24 08:11 General: Yes no CVA tenderness External Female Exam: normal external appearance and normal appearance of the urethra Speculum Exam - Vagina: normal appearance of the vagina, normal palpation, no lesions and no masses Speculum Exam - Cervix: normal appearance of the cervix, normal palpation, no lesions, no masses and nontender Bimanual exam- vagina & uterus: normal bimanual exam, normal palpation, uterine size normal, normal palpation, uterine shape normal, No Cervical tenderness present and non-tender Bimanual Exam- Adnexa, other: normal adnexae Back/Spine/Pelvis Back: no CVA tenderness Office Procedures Endometrial Biopsy Details: The patient was counseled regarding the indication and benefits of endometrial sampling to rule out endometrial pathology including not limited to endometrial hyperplasia or endometrial cancer and others; The alternatives (Either do nothing vs. hysteroscopy D&C) & the risks were discussed with the patient including but not limited: pain, uterine perforation, bleeding, infection, possible injury to bladder, bowel, ureter, possible need for blood transfusion with all its possible risks. The patient verbalized understanding all questions answered and signed consent. The patient was placed into the dorsal lithotomy position; a speculum was inserted in the vagina. Using aseptic technique for the procedure, the cervix was cleansed with Betadine. The anterior lip of the cervix was grasped with a single tooth tenaculum. The uterus was sounded to 7 cm with a 4 mm Pipelle was used. Tissues samples were obtained and placed in formalin, in a patient labeled container and sent to the pathology department. At the end of the procedure, there was minimal bleeding noted The patient tolerated the procedure well and was discharged in good condition with the following instructions: Nothing in the vagina until the bleeding stops. No sex until the bleeding stops, to call if any of the following occurs: fever (>100.4), flu-like symptoms, abdominal pain, heavy bleeding, four smelling vaginal discharge. The patient was instructed to schedule a Follow up appointment in 2 weeks to discuss pathology results of the biopsy and treatment options. This note was generated with a voice recognition program. Some errors may have been overlooked during the review of this note. Sometimes these errors may affect the content or meaning of a given sentence. [id number] Biopsy Assessment & Plan Assessment & Plan (1) Abnormal ultrasound of endometrium: Code(s): R93.5 - Abnormal findings on diagnostic imaging of other abdominal regions, including retroperitoneum Category: Medical Plan: Discussed with the patient endometrial thickness above 4 mm in menopause , the differential diagnosis of a thickened endometrium includes but not limited to endometrial polyp, hyperplasia or carcinoma. Explained to the patient that endometrial each thickness is less predictive of endometrial neoplasia in asymptomatic patients, i.e. those without postmenopausal uterine bleeding. The sensitivity and specificity for detecting endometrial carcinoma at an endometrial thickness of >= 5mm was 83 and 72 percent, respectively; this is lower than in patients with bleeding. Studies have shown that postmenopausal patients without uterine bleeding who had an endometrial thickness >11 mm had an endometrial carcinoma risk of 6.7 percent; this risk is similar to postmenopausal patients with bleeding and an endometrial thickness >5 mm. Recommended endometrial sampling to rule endometrial pathology via either office endometrial biopsy or diagnostic hysteroscopy/D&C with possible polypectomy/myomectomy. All pros and cons, risks and benefits of each approach were discussed with the patient, the patient decided to proceed with endometrial biopsy. All questions answered, the patient verbalized . EMB done, see procedure note. Instructions given the patient to schedule a 2 week EMB follow-up appointment. Orders: Orders AMB Endometrial Biopsy Today R93.5 - Abnormal findings on diagnostic imaging of other abdominal regions, including retroperitoneum Coding Level of Care Code New Pt Level 3 (37727) Procedure Only Diagnoses Abnormal ultrasound of endometrium R93.5 CPT Codes Endometrial Biopsy - CPT: 26858-[id number] Biopsy ([id number])
== END 2024-05-14 08:53 | disposition home or self-care (01) ==
PROVIDERS: PCP Internal Medicine; Visit Provider Obstetrics & Gynecology
DX: R93.5 Abnormal findings on diagnostic imaging of other abdominal regions, including retroperitoneum (principal)
CPT/HCPCS: 58100; 99203

== ENCOUNTER 2024-05-14 08:07 | Outpatient (REF) | payer OTHER, SELFPAY | END 2024-05-14 08:08 | disposition home or self-care (01) | LOC: HO.LNP 08:07 | PROVIDERS: PCP Internal Medicine; Visit Provider Obstetrics & Gynecology | DX: R93.5 Abnormal findings on diagnostic imaging of other abdominal regions, including retroperitoneum (principal) | CPT/HCPCS: 58100; 88305 ==

== ENCOUNTER 2024-05-21 16:48 | Outpatient (AMB) | payer OTHER, SELFPAY ==
--- NOTE | 2024-05-21 16:50 | A.OFFPC_ITS ---
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 Accompanied by: Self / Same As Patient Allergies sulfamethoxazole [From Septra] Allergy (Mild, Verified 05/21/24 17:02) Rash trimethoprim [From Septra] Allergy (Mild, Verified 05/21/24 17:02) Rash metformin Adverse Reaction (Intermediate, Verified 05/21/24 17:02) Diarrhea Medication List - Last Reconciled 05/21/24 by Joanne Mckeon MD atorvastatin 80 mg PO BEDTIME 90 days blood sugar diagnostic (FreeStyle Test strips) Use 1 test strip three times a day blood sugar diagnostic (FreeStyle Lite Strips) Use 1 test strip twice a day cyanocobalamin (vitamin B-12) 500 mcg PO DAILY 90 days diclofenac sodium 1% (Arthritis Pain (diclofenac)) 2 grams topical QID 14 days empagliflozin (Jardiance) 25 mg PO DAILY 90 days ibuprofen 600 mg PO Q8H PRN insulin degludec (Tresiba FlexTouch U-100 insulin) 42 units (0.42 mL) subcut BEDTIME 90 days lancets (TRUEplus Lancets) Use 1 lancet three times a day levothyroxine 112 mcg PO DAILY 90 days lisinopril-hydrochlorothiazide 10-12.5 mg 1 tab PO DAILY lorazepam 0.5 mg PO DAILY PRN 30 days metronidazole 500 mg PO BID 7 days pen needle, diabetic (BD Khadijah 2nd Gen Pen Needle) USE 1 PEN NEEDLE ONCE A DAY pen needle, diabetic (BD Ultra-Fine Khadijah Pen Needle) 1 ea miscellaneous .once a day 100 days sertraline 25 mg PO DAILY 90 days tirzepatide (Mounjaro) 7.5 mg (0.5 mL) subcut QWEEK 4 weeks Tobacco use date assessed: 07/18/23 Dental Screening Dental Screen Date: 04/18/24 HPI HPI Comments History of Present Illness Details The patient is a 58 year old female presenting with chronic abdominal pain and recent vaginal bleeding. The abdominal pain is localized to the lower abdomen and is described as continuous and persistent, resembling the sensation preceding menstruation or the urge to urinate after a long delay. The onset of the pain was several months ago, and it occurs both day and night, often awakening her from sleep with an urge to urinate, though without alleviation in discomfort. 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 Additionally, the patient has recently experienced vaginal bleeding; however, this has currently resolved. A prior evaluation indicated a thickened endometrium, but the patient is unaware of any biopsy results. She has no current urinary tract infection symptoms but will undergo urine testing. The patient has Type 2 Diabetes Mellitus with an elevated last A1c level of 8.4%, and her medications have been adjusted previously without current medications for sugar control due to lack of [facility]. Her overall condition is stable with essential hypertension and hypothyroidism secondary to thyroid cancer and follow by Endocrinology, managed with lisinopril- hydrochlorothiazide and levothyroxine. She also has hypertension that has been stable with medication. [facility] Medical History Thyroid cancer Right shoulder pain Vitamin D deficiency Mild recurrent major depression B12 deficiency Multinodular thyroid Morbid obesity with BMI of 40.0-44.9, adult Obesity due to excess calories Diabetes type 2, uncontrolled Essential hypertension Dyslipidemia JENNIFER on CPAP Abnormal Pap smear of cervix Sleep apnea Depression Diabetes mellitus Surgical History History of partial thyroidectomy Hx of colonoscopy Hx of mammogram History of removal of cyst Hx of laparoscopic gastric banding History of tubal ligation Family History Father Heart disease Hypertension Alzheimers disease CVD (cardiovascular disease) Diabetes Mental health disorder Mother Heart disease Hypertension CVD (cardiovascular disease) Arthritis Diabetes Maternal Grandmother No problems noted. Maternal Grandfather No problems noted. Paternal Grandmother Asthma Paternal Grandfather No problems noted. 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 Khris Thompson, Teri Rodriguez, Vini Murray and colleagues, with an educational ena from [employer]. Review of Systems Const All systems reviewed & are unremarkable except as noted in HPI and below Card Denies chest pain at rest, Denies chest pain with activity, Denies edema, Denies irregular heart rhythm, Denies claudication, Denies dyspnea, Denies dyspnea on exertion, Denies orthopnea, Denies paroxysmal nocturnal dyspnea and Denies slow heart rate Resp Denies cough, Denies dyspnea and Denies dyspnea on exertion GI Denies abdominal pain, Denies change in bowel habits, Denies excessive flatus, Denies nausea and Denies vomiting Physical exam (Primary Care) Vital Signs: Last Vital Signs BP 112/78 05/21/24 16:51 BMI result Body Mass Index 42.8 BMI Assessment/Plan discussion: High BMI High, discussed plan: lifestyle, weight reduction, dietary and physical activity Tobacco/Smoking Status: Tobacco use Status Tobacco use date assessed 07/18/23 05/21/24 16:51 Patient Tobacco Use Status Never used Tobacco 05/21/24 16:51 e-Cigarette/Vaping Use Never Used 05/21/24 16:51 Thrive Assessment: Date of Thrive Assessment Date Thrive assessed 12/12/23 05/21/24 16:51 Resp Effort & Inspection: normal respiratory effort Auscultation: clear to auscultation bilaterally Cardio Jugular venous distension: no JVD Rate: regular rate Rhythm: regular rhythm Heart sounds: S1 normal heart sound present and S2 normal heart sound present Extrem General: Yes full ROM Office Procedures Flu Questionnaire Does the patient have a severe egg allergy?: No Immunizations Fluarix Triv [id number] (PF) 45 mcg (15 mcg x 3)/0.5 mL IM syringe Performing Provider: Joanne Mckeon MD [place] [facility] [facility] [place] [facility] Documented (not given) by: SHRUTHI Molina on 05/21/24 16:57 Reason Not Given: Patient Refused Coding Level of Care Code Est Pt Level 4 (08237) Complex EM visit Add On G2211 Diagnoses Type 2 diabetes mellitus without complication, with long-term current use of insulin E11.9; Z79.4 Diabetes mellitus type: type 2 Diabetes mellitus fdc insulin use: with long term care phlebotomist use Diabetes mellitus complication status: without complication Essential hypertension I10 Morbid obesity with BMI of 40.0-44.9, adult E66.01; Z68.41 Mild recurrent major depression F33.0 Thyroid cancer C73 NILA (generalized anxiety disorder) F41.1 Dyslipidemia E78.5 Suprapubic pain R10.2 Time Spent (min) 25 Assessment & Plan Assessment & Plan (1) Diabetes mellitus: Code(s): E11.9 - Type 2 diabetes mellitus without complications Category: Medical Qualifiers: Diabetes mellitus type: type 2 Diabetes mellitus long term care phlebotomist insulin use: with long term care phlebotomist use Diabetes mellitus complication status: without complication Qualified Code(s): E11.9 - Type 2 diabetes mellitus without complications; Z79.4 - long term care phlebotomist (current) use of insulin (2) Essential hypertension: Code(s): I10 - Essential (primary) hypertension Category: Medical (3) Morbid obesity with BMI of 40.0-44.9, adult: Code(s): E66.01 - Morbid (severe) obesity due to excess calories; Z68.41 - Body mass index [BMI] 40.0-44.9, adult Category: Medical (4) Mild recurrent major depression: Code(s): F33.0 - Major depressive disorder, recurrent, mild Category: Medical (5) Thyroid cancer: Code(s): C73 - Malignant neoplasm of thyroid gland Category: Medical (6) NILA (generalized anxiety disorder): Code(s): F41.1 - Generalized anxiety disorder Category: Medical (7) Dyslipidemia: Code(s): E78.5 - Hyperlipidemia, unspecified Category: Medical (8) Suprapubic pain: Code(s): R10.2 - Pelvic and perineal pain Category: Medical Plan - Chronic Abdominal Pain and Recent Vaginal Bleeding: Evaluate urine for possible infection using a dipstick test. Consideration of additional antibiotics if signs of infection are noted. Follow-up with OBGYN. - Type 2 Diabetes Mellitus: Continue current regimen and monitor blood glucose levels. Reassess medication adherence and discuss alternative options or availability with pharmacy if necessary. - Hypothyroidism: Levothyroxine dose to be reassessed and potentially repeated before the next scheduled thyroid function test in September. Repeat TSH. - Essential Hypertension: Continue lisinopril-hydrochlorothiazide and monitor blood pressure. - Depression with Anxiety: Continue current sertraline and lorazepam as required. - Schedule follow-up to monitor symptom progression and medication effects. Patient was informed and verbally consented to the use of an ambient scribe for clinic note documentation during this visit. I discussed with the patient that her chronic abdominal pain and reoccurring symptoms require monitoring and potential further evaluation. The importance of conducting the urine test to rule out infection was emphasized, and the temporary use of Pyridium for symptomatic relief was explained, including its effect on urine color. The patient understands that her thickened endometrium needs follow-up and possibly a biopsy for further assessment. For her diabetes, we reviewed the significance of consistently high glucose levels, exploring barriers to medication acquisition, and options if medications remain unavailable. Furthermore, I outlined steps for levothyroxine management, including repeating doses before reassessment in September. The patient was counseled on the importance of medication adherence for hypertension and mental health. Orders: Orders Influenza [id number] Immunization 05/21/24 Z23 - Encounter for immunization UA CC w/rflx Micro + Cult 05/21/24 R30.0 - Dysuria Medications: New nitrofurantoin macrocrystal must administer with a meal/food 100 mg PO BID 10 caps 0RF 5 days phenazopyridine (Pyridium) 200 mg PO TID 6 tabs 0RF 2 days Patient Instructions: - Complete the urine test to check for possible infections. - Take Pyridium for no more than two days to relieve urinary discomfort. - Monitor blood glucose levels daily. - Continue all current medications as prescribed. - Repeat the levothyroxine dose before the next thyroid function evaluation. - Stay alert for any new or worsening symptoms and report back as necessary.
[2024-05-21 16:51] VITALS: BP 112/78; BMI 42.8
== END 2024-05-21 17:25 | disposition home or self-care (01) ==
PROVIDERS: PCP Internal Medicine; Visit Provider Internal Medicine
DX: E11.69 Type 2 diabetes mellitus with other specified complication (principal); Z79.4 Long term (current) use of insulin; E66.01 Morbid (severe) obesity due to excess calories; Z68.41 Body mass index [BMI] 40.0-44.9, adult; F33.0 Major depressive disorder, recurrent, mild; C73 Malignant neoplasm of thyroid gland; I10 Essential (primary) hypertension; F41.1 Generalized anxiety disorder; E78.5 Hyperlipidemia, unspecified; R10.2 Pelvic and perineal pain

== ENCOUNTER → 2024-05-21 16:48 | Outpatient (BNVA) | payer OTHER, SELFPAY | PROVIDERS: PCP Internal Medicine; Visit Provider Internal Medicine | DX: E11.9 Type 2 diabetes mellitus without complications (principal); I10 Essential (primary) hypertension; E66.01 Morbid (severe) obesity due to excess calories; Z68.41 Body mass index [BMI] 40.0-44.9, adult; F33.0 Major depressive disorder, recurrent, mild; C73 Malignant neoplasm of thyroid gland; F41.1 Generalized anxiety disorder; E78.5 Hyperlipidemia, unspecified; R10.2 Pelvic and perineal pain; N93.9 Abnormal uterine and vaginal bleeding, unspecified; E03.9 Hypothyroidism, unspecified; Z79.4 Long term (current) use of insulin; Z79.899 Other long term (current) drug therapy; Z28.21 Immunization not carried out because of patient refusal | CPT/HCPCS: 90471 ==

== ENCOUNTER 2024-05-22 07:35 | Outpatient (REF) | payer OTHER, SELFPAY ==
[2024-05-22 10:06] LABS: Thyroid Stimulating Hormone 2.78 uIU/mL (0.32-4.0)
[2024-05-22 14:06] LABS: Appearance Urine Clear; Color Urine Orange; Leukocyte Esterase Urine Negative (Negative); PH 5.5 (5.0-9.0); Specific Gravity - Urine 1.025 (1.005-1.025); UMIC TRIGGER UACC YES; Urine Blood Negative (Negative); Urine Ketones Negative (Negative)
[2024-05-22 14:13] LABS: Bacteria Urine 1+ (None Seen); Hyaline Casts Urine 0-2 /LPF (0-2); RBC Urine 0-2 /HPF (0-2); WBC Urine 0-5 /HPF (0-5)
== END 2024-05-22 07:36 | disposition home or self-care (01) ==
LOC: HO.LAB 07:35
PROVIDERS: PCP Internal Medicine; Visit Provider Internal Medicine
DX: C73 Malignant neoplasm of thyroid gland (principal)
CPT/HCPCS: 36415; 81001; 81003; 84443

== ENCOUNTER 2024-06-05 13:13 | Outpatient (AMB) | payer OTHER, SELFPAY ==
--- NOTE | 2024-06-05 13:21 | MHC.OFFVIS ---
Intake Visit Reasons: EMB Results Cap Maker: Cap Maker Present (Akiko) Accompanied by: Self / Same As Patient Allergies sulfamethoxazole [From Septra] Allergy (Mild, Verified 06/05/24 13:22) Rash trimethoprim [From Septra] Allergy (Mild, Verified 06/05/24 13:22) Rash metformin Adverse Reaction (Intermediate, Verified 06/05/24 13:22) Diarrhea HPI Comments Details: The patient is presenting after endometrial biopsy. The patient has no complaints, no vaginal bleeding, no feverishness chills or abdominal pain. The endometrial biopsy pathology report showed the following: Endometrium, biopsy: Superficial strips of benign endometrium, mucoinflammatory material and blood; no atypia identified [facility] Medical History Thyroid cancer Right shoulder pain Vitamin D deficiency Mild recurrent major depression B12 deficiency Multinodular thyroid Morbid obesity with BMI of 40.0-44.9, adult Obesity due to excess calories Diabetes type 2, uncontrolled Essential hypertension Dyslipidemia JENNIFER on CPAP Abnormal Pap smear of cervix Sleep apnea Depression Diabetes mellitus Surgical History History of partial thyroidectomy Hx of colonoscopy Hx of mammogram History of removal of cyst Hx of laparoscopic gastric banding History of tubal ligation Family History Father Heart disease Hypertension Alzheimers disease CVD (cardiovascular disease) Diabetes Mental health disorder Mother Heart disease Hypertension CVD (cardiovascular disease) Arthritis Diabetes Maternal Grandmother No problems noted. Maternal Grandfather No problems noted. Paternal Grandmother Asthma Paternal Grandfather No problems noted. 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 Current occupational exposures/hazards: No Gender identity: Female Cognitive needs: No Hearing needs: No Vision needs: Yes (glasses) Female Reproductive History Menstrual Age of Menarche: 8 Review of Systems Const All systems reviewed & are unremarkable except as noted in HPI and below Reports as per HPI and Reports no additional complaints GI Reports no additional complaints Reports no additional complaints Assessment & Plan Assessment & Plan (1) Abnormal ultrasound of endometrium: Code(s): R93.5 - Abnormal findings on diagnostic imaging of other abdominal regions, including retroperitoneum Category: Medical Plan: Discussed with the patient the results of the endometrial biopsy pathology. Discussed with the patient the sensitivity, specificity, positive and negative predictive value, of endometrial biopsy in detecting endometrial pathology including but not limited to endometrial hyperplasia, cancer and other pathology; instructed the patient to call in case any vaginal bleeding bleeding occurs, the next step will be to proceed with a diagnostic hysteroscopy/D&C for further endometrial sampling evaluation to rule out endometrial pathology. All questions answered and the patient verbalized understanding and agreed with the plan. Coding Level of Care Code Est Pt Level 3 (97467) Diagnoses Abnormal ultrasound of endometrium R93.5
== END 2024-06-05 13:46 | disposition home or self-care (01) ==
PROVIDERS: PCP Internal Medicine; Visit Provider Obstetrics & Gynecology
DX: R93.5 Abnormal findings on diagnostic imaging of other abdominal regions, including retroperitoneum (principal)
CPT/HCPCS: 99213

== ENCOUNTER 2024-09-09 10:09 | Outpatient (REF) | payer OTHER, SELFPAY ==
--- NOTE | ~2024-09-09 | US_ITS ---
EXAMINATION: US THYROID CLINICAL INFORMATION: Malignant neoplasm of thyroid gland. Total thyroidectomy.. COMPARISON: Ultrasound dated October 24, 2023. TECHNIQUE: Linear transducer grayscale and color Doppler examination with attention to the region of the thyroid/surgical site. FINDINGS: SIZE: Measurements of the thyroid lobes and nodules are given in sagittal, anteroposterior and transverse dimensions respectively. No residual or recurrent thyroid tissue. Multiple prominent lymph nodes at both sides of the upper neck level's of nonionic, 2 3 and 5 b. The largest level 3 on the left iliac measures 2.0 x 0.8 x 1 point cm and previously measured 1.4 x 0.7 x 1.1 cm. New lymph node level 2 left neck measures 1.0 x 0.4 x 1.0 cm. New lymph node level 5 b on the left neck measures 0.7 x 0.3 x 0.6 cm. US/US soft tiss head and/or neck IMPRESSION: No residual or recurrent thyroid parenchyma lesion/mass. Nonspecific prominent lymph nodes, the largest level 3 on the left neck. Some are slightly larger since 2023. New 1 cm lymph nodes, level 2 and level 5 b on the left neck. Electronically signed by: Devon Llanes MD 09/09/2024 11:34 AM EDT
[2024-09-09 12:25] LABS: Free T4 (Free Thyroxine) 1.28 ng/dL (0.71-1.85)
[2024-09-09 12:38] LABS: Folate 15.4 ng/mL (> or = 4.0); Vitamin B12 1100 pg/mL (200-900)
[2024-09-09 12:44] LABS: Thyroid Stimulating Hormone 1.28 uIU/mL (0.32-4.0); Vitamin D 25-OH Total 53.9 ng/mL (>30)
[2024-09-09 13:12] LABS: Anion Gap 11 (12-20)
[2024-09-09 13:17] LABS: Alanine Aminotransferase 49 U/L (0-31); Alkaline Phosphatase 90 U/L (39-117); Aspartate Amino Transferase 22 U/L (5-31); Bilirubin Total 0.5 mg/dL (0.0-1.0); Blood Urea Nitrogen 15 mg/dL (9-16); Carbon Dioxide 27 mmol/L (22-29); Chloride 109 mmol/L (96-108); Cholesterol 126 mg/dL (<200); Estimated Glomerular Filt Rate > 60; Glucose Fasting 90 mg/dL (60-99); HDL Cholesterol 35 mg/dL (>40); LDL Cholesterol Calculated 36 mg/dL (<100); Sodium 143 mmol/L (135-145); Total Protein 7.6 g/dL (6.5-8.0); Triglycerides 279 mg/dL (<150)
[2024-09-09 13:53] LABS: Appearance Urine Clear; Color Urine Yellow; Glucose Urine UA >=1000 mg/dL (Negative); Leukocyte Esterase Urine Negative (Negative); Nitrite Urine Negative (Negative); PH 5.5 (5.0-9.0); Specific Gravity - Urine >= 1.030 (1.005-1.025); UMIC TRIGGER UACC YES; Urine Blood Negative (Negative); Urine Ketones Negative (Negative); Urine Protein Negative (Neg-Trace)
[2024-09-09 13:58] LABS: Bacteria Urine None Seen (None Seen); Hyaline Casts Urine 0-2 /LPF (0-2); RBC Urine 0-2 /HPF (0-2); Squamous Epithelial Cell Urine 0-2 /HPF (0-2); WBC Urine 0-5 /HPF (0-5)
[2024-09-09 14:28] LABS: Creatinine Urine 75.65 mg/dL; Microalbumin Urine < 5.0 mg/L
[2024-09-10 20:03] LABS: Thyroglobulin 0.2 ng/mL
[2024-09-11 22:24] LABS: Thyroglobulin Antibody <1 IU/mL (<=1); Thyroglobulin Level 0.2 ng/mL
== END 2024-09-09 10:10 | disposition home or self-care (01) ==
LOC: HO.US 10:09
PROVIDERS: Absent Provider Nurse Practitioner Adult Health; PCP Internal Medicine; Visit Provider Nurse Practitioner Adult Health
DX: R59.0 Localized enlarged lymph nodes (principal); C73 Malignant neoplasm of thyroid gland; E89.0 Postprocedural hypothyroidism; E78.5 Hyperlipidemia, unspecified; E53.8 Deficiency of other specified B group vitamins; E55.9 Vitamin D deficiency, unspecified; E11.9 Type 2 diabetes mellitus without complications; Z79.4 Long term (current) use of insulin; R80.9 Proteinuria, unspecified
CPT/HCPCS: 36415; 76536; 80053; 80061; 81001; 82043; 82306; 82570; 82607; 82746; 84432; 84439; 84443; 86800

== ENCOUNTER → 2024-09-09 10:13 | Outpatient (BNV) | payer OTHER, SELFPAY | PROVIDERS: Absent Provider Nurse Practitioner Adult Health; PCP Internal Medicine; Visit Provider Radiology Diagnostic Radiology | DX: C73 Malignant neoplasm of thyroid gland (principal); Z90.89 Acquired absence of other organs | CPT/HCPCS: 76536 ==

== ENCOUNTER 2024-09-11 13:25 | Outpatient (AMB) | payer OTHER, SELFPAY ==
[2024-09-11 13:30] VITALS: BP 102/56; PULSE 76; O2SAT 97; BMI 43.4
--- NOTE | 2024-09-11 13:30 | A.OFFVIS_ITS ---
Vital Signs 3 09/11/24 13:30 Height 5 ft 2 in Weight 237 lb 3.478 oz BMI 43.4 BP 102/56 L Blood Pressure Location Rt brachial Position Sitting Pulse 76 Pulse Source Pulse Oximeter Pulse Oximetry (%) 97 Oxygen Delivery Method Room Air Intake Visit Reasons: f/u Thyroid cancer Intake Note: Patient present today for Thyroid Cancer follow up. 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 Accompanied by: Self / Same As Patient Allergies sulfamethoxazole [From Febra] Allergy (Mild, Verified 09/11/24 13:37) Rash trimethoprim [From Febra] Allergy (Mild, Verified 09/11/24 13:37) Rash metformin Adverse Reaction (Intermediate, Verified 09/11/24 13:37) Diarrhea Medication List - Last Reconciled 09/11/24 by Marychuy Da Silva MD atorvastatin 80 mg PO BEDTIME 90 days blood sugar diagnostic (FreeStyle Test strips) Use 1 test strip three times a day blood sugar diagnostic (FreeStyle Lite Strips) Use 1 test strip twice a day cyanocobalamin (vitamin B-12) 500 mcg PO DAILY 90 days diclofenac sodium 1% (Arthritis Pain (diclofenac)) 2 grams topical QID 14 days empagliflozin (Jardiance) 25 mg PO DAILY 90 days ibuprofen 600 mg PO Q8H PRN insulin degludec (Tresiba FlexTouch U-100 insulin) 42 units (0.42 mL) subcut BEDTIME 90 days lancets (TRUEplus Lancets) Use 1 lancet three times a day levothyroxine 112 mcg PO DAILY 90 days lisinopril-hydrochlorothiazide 10-12.5 mg 1 tab PO DAILY lorazepam 0.5 mg PO DAILY PRN 30 days metronidazole 500 mg PO BID 7 days nitrofurantoin macrocrystal 100 mg PO BID 5 days pen needle, diabetic (BD Khadijah 2nd Gen Pen Needle) USE 1 PEN NEEDLE ONCE A DAY pen needle, diabetic (BD Ultra-Fine Khadijah Pen Needle) 1 ea miscellaneous .once a day 100 days phenazopyridine (Pyridium) 200 mg PO TID 2 days sertraline 25 mg PO DAILY 90 days tirzepatide (Mounjaro) 7.5 mg (0.5 mL) subcut QWEEK 4 weeks HPI Comments Details: 59-year-old female here today for follow up of thyroid cancer status post right hemithyroidectomy 10/05/[address] 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 History of thyroid cancer in detail 07/27/2021: Ultrasound of the thyroid revealed a 1.5 cm right midpole nodule. 01/27/2022: FNA biopsy of this right midpole nodule came back as AUS [place] category 3, Afirma was suspicious, risk of malignancy 50%. 10/05/2022: Status post right hemithyroidectomy with Dr. Stefani Merrill at [facility] with the official surgical pathology revealing minimally invasive follicular carcinoma, tumor size was 1.6 cm, unifocal, no angioinvasion, no lymphatic invasion, no perineural invasion, no extrathyroidal extension. Margins were uninvolved. No lymph nodes were assessed. AJCC stage I, pT1b NX. YESI low risk of recurrence. 02/22/2023: Status post completion thyroidectomy, with benign pathology 10/24/2023: Ultrasound neck showed benign-appearing bilateral lymph nodes Interval history 09/09/2024: TSH 1.28, free T4 1.28, TG level 0.3, TG antibody less than 1 09/09/2024: Ultrasound of the neck , I reviewed the images myself showed normal- appearing lymph nodes bilaterally, though some of these have increased in size compared to previous such as a left level 3, lymph node which is now 2 X 0.8 X 1.2 cm, previously measured 1.4 X 0.7 X 1.1 cm. At left level 3 lymph node now measuring 1.2 X 0.4 X 0.7 cm, previously measured 0.5 and 0.4 X 0.5 cm. Currently on levothyroxine 112 mcg daily, appropriate administration and adherence No compressive symptoms Endorses constipation , weight stable No family history of thyroid cancer never smoker Physical exam General: sitting comfortably in no acute distress HEENT: normocephalic/atraumatic, EOM intact, moist oral mucosa Neck: supple, no palpable lymph nodes or masses Cardiac: normal heart sounds Pulm: normal breath sounds B/L, no added breath sounds Abd: not distended, no tenderness Extremities: no edema, no signs of myxedema Laboratory Tests 06/25/20 07/20/21 01/27/22 09:10 08:34 08:55 TSH 0.96 0.89 0.97 Free T4 0.86 0.95 Thyroglobulin Thyroglobulin Antibody <1 Thyroid Peroxidase Ab 1 05/17/22 11/05/22 04/18/23 10:57 08:55 09:40 TSH 0.82 2.18 0.16 L Free T4 0.95 0.91 1.15 Thyroglobulin 0.1 H Thyroglobulin Antibody <1 Thyroid Peroxidase Ab 07/15/23 09/02/23 12/02/23 08:59 09:33 08:38 TSH 0.27 L 2.36 0.65 Free T4 1.01 0.99 1.12 Thyroglobulin 0.1 H Thyroglobulin Antibody <1 Thyroid Peroxidase Ab 03/23/24 05/22/24 09/09/24 09:11 07:52 11:17 TSH 0.14 L 2.78 1.28 Free T4 1.28 Thyroglobulin 0.2 L Thyroglobulin Antibody Thyroid Peroxidase Ab US THYROID 09/09/24 CLINICAL INFORMATION: Malignant neoplasm of thyroid gland. Total thyroidectomy.. COMPARISON: Ultrasound dated October 24, 2023. TECHNIQUE: Linear transducer grayscale and color Doppler examination with attention to the region of the thyroid/surgical site. FINDINGS: SIZE: Measurements of the thyroid lobes and nodules are given in sagittal, anteroposterior and transverse dimensions respectively. No residual or recurrent thyroid tissue. Multiple prominent lymph nodes at both sides of the upper neck level's of nonionic, 2 3 and 5 b. The largest level 3 on the left iliac measures 2.0 x 0.8 x 1 point cm and previously measured 1.4 x 0.7 x 1.1 cm. New lymph node level 2 left neck measures 1.0 x 0.4 x 1.0 cm. New lymph node level 5 b on the left neck measures 0.7 x 0.3 x 0.6 cm. US/US soft tiss head and/or neck IMPRESSION: No residual or recurrent thyroid parenchyma lesion/mass. Nonspecific prominent lymph nodes, the largest level 3 on the left neck. Some are slightly larger since 2023. New 1 cm lymph nodes, level 2 and level 5 b on the left neck. Electronically signed by: Devon Llanes MD 09/09/2024 11:34 AM EDT RP US SOFT TISSUE HEAD/NECK 10/24/23 CLINICAL INFORMATION: Malignant neoplasm of thyroid gland. History of total thyroidectomy for thyroid cancer. Rule out persistence or recurrence. COMPARISON: Thyroid ultrasound 07/27/2021. TECHNIQUE: Linear transducer gomez-scale and color Doppler examination of the thyroid bed and surrounding soft tissue. FINDINGS: Interval removal of both lobes of the thyroid gland and the isthmus of the thyroid gland. No residual tissue or other abnormality is seen within the thyroid bed. A 0.7 x 0.4 x 0.6 cm and 0.7 x 0.3 x 0.6 cm benign-appearing lymph nodes are seen on the right at level 4. 0.5 x 0.4 x 0.5 cm benign-appearing lymph node is seen on the left at level 3. 1.4 x 0.7 x 1.0 cm and 1.0 x 0.7 x 0.8 cm benign-appearing lymph nodes on the left that level 3 with fatty rolly and no cortical thickening. 0.5 x 0.2 x 0.4 cm benign-appearing lymph node is seen on the left at level 5B. US/US soft tiss head and/or neck IMPRESSION: 1. Interval removal of both lobes of the thyroid gland and the isthmus of the thyroid gland. 2. Benign-appearing bilateral cervical lymph nodes. [facility] Medical History (Updated 09/11/24 @ 14:34 by Marychuy Da Silva MD) Hypothyroidism Thyroid cancer Right shoulder pain Vitamin D deficiency Mild recurrent major depression B12 deficiency Multinodular thyroid Morbid obesity with BMI of 40.0-44.9, adult Obesity due to excess calories Diabetes type 2, uncontrolled Essential hypertension Dyslipidemia JENNIFER on CPAP Abnormal Pap smear of cervix Sleep apnea Depression Diabetes mellitus Surgical History History of partial thyroidectomy Hx of colonoscopy Hx of mammogram History of removal of cyst Hx of laparoscopic gastric banding History of tubal ligation Family History Father Heart disease Hypertension Alzheimers disease CVD (cardiovascular disease) Diabetes Mental health disorder Mother Heart disease Hypertension CVD (cardiovascular disease) Arthritis Diabetes Maternal Grandmother No problems noted. Maternal Grandfather No problems noted. Paternal Grandmother Asthma Paternal Grandfather No problems noted. 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 Current occupational exposures/hazards: No Gender identity: Female Cognitive needs: No Hearing needs: No Vision needs: Yes (glasses) Female Reproductive History Menstrual Age of Menarche: 8 Physical Exam Vital Signs: Last Vital Signs Pulse 76 09/11/24 13:30 BP 102/56 L 09/11/24 13:30 Pulse Ox 97 09/11/24 13:30 Oxygen Delivery Method Room Air 09/11/24 13:30 BMI result Body Mass Index 43.4 Assessment & Plan Assessment & Plan (1) Thyroid cancer: Code(s): C73 - Malignant neoplasm of thyroid gland Category: Medical Plan: 59-year-old female here today for follow up of thyroid cancer status post right hemithyroidectomy 10/05/[address] 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 Most recent ultrasound of the neck from 09/09/2024, I reviewed the images myself shows normal-appearing bilateral lymph nodes. Some of these are comparatively larger compared to previous ultrasound in September 2023, however overall none of these look suspicious. We will plan to repeat an ultrasound of the neck in 1 year from this ultrasound in August 2025. Her unstimulated thyroglobulin remains low consistent with excellent response to therapy. Given excellent response to therapy, goal TSH 0.5-2. Plan: -continue levothyroxine 112 mcg daily -stressed to patient that we will be the ones prescribing levothyroxine or changing doses -ordered TSH, free T4, TG and TG antibodies to be done in 6 months prior to follow up -next ultrasound of the neck would be due August 2025 (2) Hypothyroidism: Code(s): E03.9 - Hypothyroidism, unspecified Category: Medical Qualifiers: Hypothyroidism type: postoperative Qualified Code(s): E89.0 - Postprocedural hypothyroidism Plan: An excellent response to therapy, goal TSH 0.5-2. Labs from August 2024 showed TSH within goal. Plan: -ordered TSH, free T4, to be done in 6 months prior to follow up -continue levothyroxine 112 mcg daily Plan I spent 30 minutes in reviewing the record, seeing the patient and documenting in the medical record. Orders: Orders 2 Thyroid Stimulating Hormone 6 Months C73 - Malignant neoplasm of thyroid gland Thyroglobulin 6 Months C73 - Malignant neoplasm of thyroid gland Thyroglobulin Antibodies 6 Months C73 - Malignant neoplasm of thyroid gland Thyroglobulin Tumor Marker 6 Months C73 - Malignant neoplasm of thyroid gland Free T4 (Free Thyroxine) 6 Months C73 - Malignant neoplasm of thyroid gland Medications: Refilled 2 levothyroxine 112 mcg PO DAILY 90 days 90 tabs 3RF Patient Instructions: Continue levothyroxine 112 mcg daily Do blood work prior to your next appointment, do it a week or 2 before your next appointment in 6 months Coding Level of Care Code Est Pt Level 4 (19543) Complex EM visit Add On G2211 Diagnoses Thyroid cancer C73 Postoperative hypothyroidism E89.0 Hypothyroidism type: postoperative Time Spent (min) 30
== END 2024-09-11 14:25 | disposition home or self-care (01) ==
LOC: HO.ENCR 13:26
PROVIDERS: PCP Internal Medicine; Visit Provider Student in an Organized Health Care Education/Training Program
DX: C73 Malignant neoplasm of thyroid gland (principal); E89.0 Postprocedural hypothyroidism
CPT/HCPCS: 99214

== ENCOUNTER → 2024-09-11 13:25 | Outpatient (BNVA) | payer OTHER, SELFPAY | PROVIDERS: PCP Internal Medicine; Visit Provider Student in an Organized Health Care Education/Training Program ==

== ENCOUNTER 2024-09-17 09:55 | Outpatient (AMB) | payer OTHER, SELFPAY ==
--- NOTE | 2024-09-17 10:07 | MHC.OFFVIS ---
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 She is doing well with airport operations duty manager concerns: daily pelvic pain, pain worse with bowel movements for the last two week. History of constipation she admits it is getting worse. She denies any urine symptoms. Currently sexually active. Denies any vaginal dryness or irritation. Attempting to eat a healthy diet with calcium and vitamin D and stays active with exercise. Last pap smear; 2020. Last mammogram; 2023. Denies any family history of breast or colon cancer. FH ovarian cancer-m.cousin. [facility] Medical History (Updated 09/17/24 @ 10:58 by Vero Mauricio CNM) Pelvic pain Hypothyroidism Thyroid cancer Right shoulder pain Vitamin D deficiency Mild recurrent major depression B12 deficiency Multinodular thyroid Morbid obesity with BMI of 40.0-44.9, adult Obesity due to excess calories Diabetes type 2, uncontrolled Essential hypertension Dyslipidemia JENNIFER on CPAP Abnormal Pap smear of cervix Sleep apnea Depression Diabetes mellitus Surgical History History of partial thyroidectomy Hx of colonoscopy Hx of mammogram History of removal of cyst Hx of laparoscopic gastric banding History of tubal ligation Family History Father Heart disease Hypertension Alzheimers disease CVD (cardiovascular disease) Diabetes Mental health disorder Mother Heart disease Hypertension CVD (cardiovascular disease) Arthritis Diabetes Maternal Grandmother No problems noted. Maternal Grandfather No problems noted. Paternal Grandmother Asthma Paternal Grandfather No problems noted. 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 Current occupational exposures/hazards: No Gender identity: Female Cognitive needs: No Hearing needs: No Vision needs: Yes (glasses) Female Reproductive History Menstrual Age of Menarche: 8 control method: permanent sterilization Permanent Sterilization: BTL Total pregnancies: 2 Full term: 2 Number of Living Children: 2 Date of last pap smear: 09/10/20 (neg 08/20/20 unsat neg hpv) History of abnormal pap smear: Yes (08/12 ascus) Date of Mammogram: 02/16/24 (Birad 0 04/11/24 birad 3) Physical Exam Vital Signs: Last Vital Signs BP 102/60 09/17/24 10:09 BMI result Body Mass Index 43.2 Results AMB Urinalysis, Automated UA Leukoctes 0 Walker/uL Last Edit by Genet Mantilla [facility] on 09/17/24 11:14 UA Nitrite Negative Last Edit by Genet Mantilla [facility] on 09/17/24 11:14 UA Urobilinogen 0 mg/dL Last Edit by Genet Mantlila [facility] on 09/17/24 11:14 UA Protein 0 mg/dL Last Edit by Genet Mantilla [facility] on 09/17/24 11:14 UA pH 6.0 Last Edit by Genet Mantilla [facility] on 09/17/24 11:14 UA Blood 0 Eliazar/uL Last Edit by Genet Mantilla [facility] on 09/17/24 11:14 UA Specific [place] 1.015 Last Edit by Genet Mantilla [facility] on 09/17/24 11:14 UA Ketone Negative Last Edit by Genet Mantilla [facility] on 09/17/24 11:14 UA Bilirubin 0 mg/dL Last Edit by Genet Mantilla [facility] on 09/17/24 11:14 UA Glucose 3 mg/dL Last Edit by Genet Mantilla [facility] on 09/17/24 11:14 Results Reviewed Results Reviewed: Laboratory Last Values Urine pH (Auto) 6.0 09/17/24 10:57 Specific [place] (Auto) 1.015 09/17/24 10:57 Urine Protein (Auto) 0 mg/dL 09/17/24 10:57 Glucose (UA)(Auto) 3 mg/dL 09/17/24 10:57 Urine Ketones (Auto) Negative 09/17/24 10:57 Urine Blood (Auto) 0 Eliazar/uL 09/17/24 10:57 Urine Nitrite (Auto) Negative 09/17/24 10:57 Urine Bilirubin (Auto) 0 mg/dL 09/17/24 10:57 Urine Urobilinogen (Auto) 0 mg/dL 09/17/24 10:57 Leukocyte Esterase (Auto) 0 Walker/uL 09/17/24 10:57 Assessment & Plan Assessment & Plan (1) Well woman exam with routine gynecological exam: Code(s): Z01.419 - Encounter for gynecological examination (general) (routine) without abnormal findings Category: Medical Plan: Discussed: Current recommendations for pap smears per ASCCP guidelines. Breast awareness, periodic self breast exams and yearly mammogram. Maintain a healthy lifestyle, well balanced diet including Calcium 1,200 mg and Vitamin D 600 IU daily, and routine exercise. Use of condoms for STI prevention if indicated. Contact the office with any postmenopausal bleeding. Patient verbalizes understanding and agrees to the plan of care. She was given opportunity to ask questions and all questions were answered to the best of my ability. RTO in 1 year for annual airport operations duty manager exam. This note is constructed using voice recognition software. While every effort has been made to ensure accuracy, cyber ops planner errors may have been included. (2) Pelvic pain: Code(s): R10.2 - Pelvic and perineal pain Category: Medical Plan: Plan workup pelvic ultrasound, cervical cultures, follow up pending results for plan of care. Discuss constipation prevention techniques including diet modifications with increased fiber and fluids, and regular exercise daily. The patient expressed understanding and agreement with the plan of care. All of her questions and concerns were addressed to the best of my ability. Total time I personally spent on visit and management today: ?15 minutes. Time spent included review of pertinent office notes in the electronic health record; review of laboratory and imaging results; review of personal family medical history; performing physical exam; discussing diagnosis and plan of care with the patient; documenting the encounter in the EMR. Orders: Orders Bacterial Vaginosis Panel Today R10.2 - Pelvic and perineal pain CT NG by PCR Today R10.2 - Pelvic and perineal pain AMB Urinalysis Automated Today R10.2 - Pelvic and perineal pain US pelvic and transvaginal Today R10.2 - Pelvic and perineal pain Coding Level of Care Code Est Pt Level 2 (75214) Est Pt Prev Care 40-64y(43898) Diagnoses Well woman exam with routine gynecological exam Z01.419 Pelvic pain R10.2
[2024-09-17 10:09] VITALS: BP 102/60; BMI 43.2
== END 2024-09-17 11:03 | disposition home or self-care (01) ==
LOC: HO.HWS 09:56
PROVIDERS: PCP Internal Medicine; Visit Provider Advanced Practice Midwife
DX: Z01.419 Encounter for gynecological examination (general) (routine) without abnormal findings (principal); R10.2 Pelvic and perineal pain
CPT/HCPCS: 99212; 99396; 99459

== ENCOUNTER 2024-09-17 09:55 | Outpatient (REF) | payer OTHER, SELFPAY ==
[2024-09-17 14:46] LABS: Bacterial Vaginosis PCR NEGATIVE (Negative); Candida Group PCR NOT DETECTED (Not Detect); Candida glab krusei PCR NOT DETECTED (Not Detect); Trichomonas vaginalis PCR NOT DETECTED (Not Detect)
[2024-09-17 15:09] LABS: CT PCR NOT DETECTED (Not Detect.); NG PCR NOT DETECTED (Not Detect.)
== END 2024-09-17 09:56 | disposition home or self-care (01) ==
LOC: HO.LAB 09:55
PROVIDERS: PCP Internal Medicine; Visit Provider Advanced Practice Midwife
DX: Z01.411 Encounter for gynecological examination (general) (routine) with abnormal findings (principal); R10.2 Pelvic and perineal pain
CPT/HCPCS: 81003; 81515; 87491; 87591

== ENCOUNTER 2024-09-17 10:57 | Outpatient (REF) | payer OTHER, SELFPAY | END 2024-09-17 10:58 | disposition home or self-care (01) | LOC: HO.LNP 10:57 | PROVIDERS: Visit Provider Advanced Practice Midwife | DX: Z13.89 Encounter for screening for other disorder (principal) ==

== ENCOUNTER 2024-10-17 13:51 | Outpatient (REF) | payer OTHER, SELFPAY ==
--- NOTE | ~2024-10-17 | MM_ITS ---
EXAMINATION: MM DIAGNOSTIC DIGITAL MAMMOGRAPHY, RIGHT CLINICAL INFORMATION: 6 month follow-up for grouped calcifications in the upper outer right breast. Personal history of ovarian cancer in her 20s. COMPARISON: Mammography: [facility] on PACS. TECHNIQUE: Digital mammography is performed in craniocaudal and mediolateral oblique views along with computer-aided detection (CAD). FINDINGS: There are scattered areas of fibroglandular density (ACR BI-RADS breast composition Category b). Grouped rounded punctate calcifications in the upper outer quadrant middle to posterior depth are not significant change from prior magnification views 6 months ago. No suspicious masses or other abnormal findings. Results are discussed with the patient at time of visit. MM/MM diagnostic mammo unilat RT IMPRESSION: Grouped calcifications in the upper outer right breast are not significantly changed from prior magnification views for 6 months. Recommend six-month follow-up with magnification views when the patient is due for bilateral mammography to demonstrate stability. ASSESSMENT: BI-RADS BI-RADS 3 - Probably benign finding(s) - 6 month follow-up suggested RECOMMENDATION: 6 Month F/U This patient's information was entered into a reminder system with a target due date for their next mammogram. Electronically signed by: Kaya Barbosa DO 10/17/2024 02:27 PM EDT
== END 2024-10-17 13:52 | disposition home or self-care (01) ==
LOC: HO.MAMMO 13:51
PROVIDERS: PCP Internal Medicine; Visit Provider Internal Medicine
DX: R92.1 Mammographic calcification found on diagnostic imaging of breast (principal); R92.321 Mammographic fibroglandular density, right breast
CPT/HCPCS: 77062; 77065

== ENCOUNTER → 2024-10-17 14:00 | Outpatient (BNV) | payer OTHER, SELFPAY | PROVIDERS: PCP Internal Medicine; Visit Provider Internal Medicine | DX: R92.1 Mammographic calcification found on diagnostic imaging of breast (principal) | CPT/HCPCS: 77065 ==

== ENCOUNTER 2024-10-18 10:24 | Outpatient (REF) | payer OTHER, SELFPAY ==
--- NOTE | ~2024-10-18 | US_ITS ---
EXAMINATION: US PELVIS TRANSABDOMINAL AND TRANSVAGINAL HISTORY: R10.2 - Pelvic and perineal pain COMPARISON: Correlation is made with a CT of the pelvis without contrast dated 07/13/2021. TECHNIQUE: Transabdominal and endovaginal real-time 2D gomez-scale ultrasound was performed. FINDINGS: Uterus: The uterus is normal in size, measuring 6.0 x 3.2 x 3.6 cm. Myometrium has a normal echotexture. No fibroids are identified. Endometrium: The endometrial stripe measures 9 mm in thickness. Nabothian cysts in the cervix. Right ovary: The right ovary is not identified. Left ovary: The left ovary is not identified. Pelvic fluid: none. US/US pelvic and transvaginal IMPRESSION: Nabothian cysts in the cervix. The ovaries are not identified. Otherwise unremarkable pelvic ultrasound. Electronically signed by: Khris Caban MD 10/18/2024 11:42 AM EDT
== END 2024-10-18 10:25 | disposition home or self-care (01) ==
LOC: HO.US 10:24
PROVIDERS: PCP Internal Medicine; Visit Provider Advanced Practice Midwife
DX: R10.2 Pelvic and perineal pain (principal)
CPT/HCPCS: 76830; 76856

== ENCOUNTER → 2024-10-18 11:16 | Outpatient (BNV) | payer OTHER, SELFPAY | PROVIDERS: PCP Internal Medicine; Visit Provider Radiology Diagnostic Radiology | DX: R10.2 Pelvic and perineal pain (principal) | CPT/HCPCS: 76830; 76856 ==

== ENCOUNTER 2024-11-14 11:43 | Outpatient (AMB) | payer OTHER, SELFPAY ==
--- NOTE | 2024-11-14 11:54 | MHC.OFFVIS ---
Intake Visit Reasons: US follow up Intake Note: Per patient pelvic pain is not terrible right now, but does fluctuate day by day. Occupational Health Physician: Occupational Health Physician Present (Akiko) Accompanied by: Self / Same As Patient Allergies sulfamethoxazole [From Septra] Allergy (Mild, Verified 11/14/24 11:55) Rash trimethoprim [From Septra] Allergy (Mild, Verified 11/14/24 11:55) Rash metformin Adverse Reaction (Intermediate, Verified 11/14/24 11:55) Diarrhea Is last menstrual period known: Yes HPI Comments Details: Patient is here for a follow up pelvic ultrasound. She has a history of chronic pelvic pain for many years and has pain most days. She denies any GI changes. She does not have any vaginal bleeding. Endometrial biopsy in April was negative. History of endometrial thickening. Cultures were all negative. [facility] Medical History (Updated 11/14/24 @ 12:05 by Vero Mauricio CNM) Chronic pelvic pain in female Pelvic pain Hypothyroidism Thyroid cancer Right shoulder pain Vitamin D deficiency Mild recurrent major depression B12 deficiency Multinodular thyroid Morbid obesity with BMI of 40.0-44.9, adult Obesity due to excess calories Diabetes type 2, uncontrolled Essential hypertension Dyslipidemia JENNIFER on CPAP Abnormal Pap smear of cervix Sleep apnea Depression Diabetes mellitus Surgical History History of partial thyroidectomy Hx of colonoscopy Hx of mammogram History of removal of cyst Hx of laparoscopic gastric banding History of tubal ligation Family History Father Heart disease Hypertension Alzheimers disease CVD (cardiovascular disease) Diabetes Mental health disorder Mother Heart disease Hypertension CVD (cardiovascular disease) Arthritis Diabetes Maternal Grandmother No problems noted. Maternal Grandfather No problems noted. Paternal Grandmother Asthma Paternal Grandfather No problems noted. 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 Current occupational exposures/hazards: No Gender identity: Female Cognitive needs: No Hearing needs: No Vision needs: Yes (glasses) Female Reproductive History Menstrual Age of Menarche: 8 Review of Systems Const All systems reviewed & are unremarkable except as noted in HPI and below Endo Reports no additional complaints Physical Exam Const General: cooperative, healthy appearing and no acute distress Psych Appearance: well kempt Attitude: cooperative Thought process: Normal thought process present Results Reviewed Results Reviewed: [address] [address] Ultrasound Report Signed Patient: Keke Hicks MR#: [id number] : 1965 Acct:[id number] Age/Sex: 59 / F ADM Date: 10/18/24 Loc: HO.US Attending Dr: Vero Mauricio CNM Ordering Physician: Vero Mauricio CNM Date of Service: 10/18/24 Procedure(s): US pelvic and transvaginal Accession Number(s): [id number] cc: Vero Mauricio CNM; Joanne Hernandez MD~ EXAMINATION: US PELVIS TRANSABDOMINAL AND TRANSVAGINAL HISTORY: R10.2 - Pelvic and perineal pain COMPARISON: Correlation is made with a CT of the pelvis without contrast dated 07/13/2021. TECHNIQUE: Transabdominal and endovaginal real-time 2D gomez-scale ultrasound was performed. FINDINGS: Uterus: The uterus is normal in size, measuring 6.0 x 3.2 x 3.6 cm. Myometrium has a normal echotexture. No fibroids are identified. Endometrium: The endometrial stripe measures 9 mm in thickness. Nabothian cysts in the cervix. Right ovary: The right ovary is not identified. Left ovary: The left ovary is not identified. Pelvic fluid: none. US/US pelvic and transvaginal IMPRESSION: Nabothian cysts in the cervix. The ovaries are not identified. Otherwise unremarkable pelvic ultrasound. Electronically signed by: Khris Caban MD 10/18/2024 11:42 AM EDT Dictated By: Khris Caban MD Signed By: <Electronically signed by Khris Caban MD in OV> 10/18/24 1142 DD/ 1121 TD/TT: 10/18/24 1129 Industrial Tech Instructor: Assessment & Plan Assessment & Plan (1) Chronic pelvic pain in female: Code(s): R10.2 - Pelvic and perineal pain; G89.29 - Other chronic pain Category: Medical Plan: Discuss the many causes of pelvic pain to include GI, urinary, pelvic, musculoskeletal, and other, including unknown etiology. She is interested in pursuing the cause of her pelvic pain and any treatment, she is agreeable to have a referral to [facility] sales activity manager for consult appointment. Advised to monitor the pain and see if it is correlated with any other activities or bodily functions. Referal placed. AG 08/2025 booked. (2) Encounter to discuss test results: Code(s): Z71.2 - Person consulting for explanation of examination or test findings Plan Discussed: Ultrasound findings endometrial thickness is 9 mm, previously 10mm 04/2024. Refer to report for details. Advised to report to the office any vaginal bleeding and informed she would need further evaluation with a hysteroscopy procedure. The patient expressed understanding and agreement with the plan of care. All of her questions and concerns were addressed to the best of my ability. This note is constructed using voice recognition software. While every effort has been made to ensure accuracy, slip cover estimator errors may have been included. Orders: Referrals PRACTICE PROFESSIONAL Referral G89.29 - Other chronic pain, R10.2 - Pelvic and perineal pain Coding Level of Care Code Est Pt Level 3 (01641) Diagnoses Chronic pelvic pain in female R10.2; G89.29 Encounter to discuss test results Z71.2
== END 2024-11-14 13:14 | disposition home or self-care (01) ==
LOC: HO.HWS 11:43
PROVIDERS: PCP Internal Medicine; Visit Provider Advanced Practice Midwife
DX: R10.2 Pelvic and perineal pain (principal); G89.29 Other chronic pain; Z71.2 Person consulting for explanation of examination or test findings
CPT/HCPCS: 99213

== ENCOUNTER 2024-12-20 08:47 | Outpatient (AMB) | payer OTHER, SELFPAY ==
--- NOTE | 2024-12-20 07:58 | A.OFFVIS_ITS ---
Vital Signs 12/20/24 08:53 Height 5 ft 2 in Weight 231 lb 7.766 oz BMI 42.3 BP 116/74 Blood Pressure Location Rt brachial Position Sitting Pulse 74 Pulse Source Pulse Oximeter Pulse Oximetry (%) 97 Oxygen Delivery Method Room Air Intake Visit Reasons: T2DM Intake Note: Patient presents today for a follow-up on Type 2 Diabetes Mellitus:: Last Diabetic eye exam was on: DUE Last Podiatry exam was on: Does not see a Self Pay Specialist Most recent HbA1c: 6.2%, 12/20/2024 Random Glucose- 80 mg/dL, Today Web Applications Administrator Required: No Accompanied by: Self / Same As Patient Allergies sulfamethoxazole (From [facility]) Allergy (Mild, Verified 12/20/24 08:53) Rash trimethoprim (From [facility]) Allergy (Mild, Verified 12/20/24 08:53) Rash metformin Adverse Reaction (Intermediate, Verified 12/20/24 08:53) Diarrhea HPI Comments Details: [age] YO female who is seen in f/u for T2DM. She was seen by myself once last fall for thyroid cancer and her care was transferred to Dr. Ling whom she has follow up in the fall. She is on Mounjaro 5 mg. Initially diagnosed with T2DM in 2018 Was initially started on treatment with metformin had diarrhea Current regimen: Lantus 42 units jardiance 25mg Mounjaro 5.0mg She has not been testing her sugars as she lost her glucometer and supplies. She is not interested in a sensor. Reports low sugars none Family history of T2DM in mother who suffered complication of amputation Has eyes checked yearly, last eye exam Due, encouraged to schedule [denies] retinopathy. Denies neuropathy, last foot exam today in the office, does not see podiatry. No nephropathy, on CITLALI inhibitor. 08/2024 microalbumin less than 5.0 eGFR>60 Has HLD, on statin. Last LDL 35 as measured on 08/2024. Denies CAD. Denies symptoms of chest pain, dyspnea or claudication. Diet: Has met with advertising display rotator once in the past does not wish to reschedule as she felt the advertising display rotator did not believe what she was eating. Breakfast: Coffee, 5-6 crackers, several pieces of cheese Lunch: Tuna fish 2 crackers Supper: Piece of lean meat, pineapple consumes about 1 vegetable per day Weight: Has lost 5 lb since the fall Has not had diabetes education. [facility] Medical History (Updated 11/14/24 @ 12:05 by Vero Mauricio CNM) Chronic pelvic pain in female Pelvic pain Hypothyroidism Thyroid cancer Right shoulder pain Vitamin D deficiency Mild recurrent major depression B12 deficiency Multinodular thyroid Morbid obesity with BMI of 40.0-44.9, adult Obesity due to excess calories Diabetes type 2, uncontrolled Essential hypertension Dyslipidemia JENNIFER on CPAP Abnormal Pap smear of cervix Sleep apnea Depression Diabetes mellitus Surgical History History of partial thyroidectomy Hx of colonoscopy Hx of mammogram History of removal of cyst Hx of laparoscopic gastric banding History of tubal ligation Family History Father Heart disease Hypertension Alzheimers disease CVD (cardiovascular disease) Diabetes Mental health disorder Mother Heart disease Hypertension CVD (cardiovascular disease) Arthritis Diabetes Maternal Grandmother No problems noted. Maternal Grandfather No problems noted. Paternal Grandmother Asthma Paternal Grandfather No problems noted. 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 Absence of acromegalic features. Neck exam reveals nl size thyroid about 15 gms. No thyroid nodules palpable. No carotid b ruits present. Lungs CTA. Heart S1 S2, Reg R/R. No M/R/ G. Skin exam reveals absence of vitiligo or acanthosis nigricans. Abdominal exam reveals Soft NT/ND with NA BS. No organomegaly present. Const Other: Absence of Cushingoid features. Absence of acromegalic features. Neck exam reveals nl size thyroid about 15 gms. No thyroid nodules palpable. Heart S1 S2, Reg R/R. No M/R G. Skin exam reveals absence of vitiligo or acanthosis nigricans. No edema Visual exam of foot performed. No ulcerations or open lesions. No inter digit maceration or fissuring. No onychomycosis, no callouses. Sensation intact to monofilament exam. Vibratory sensation is normal with 128 Hz tuning fork. Pulses positive. Neck Other: . Extrem Other: Visual exam of foot performed. No ulcerations or open lesions. No onchomycosis, no callouses.Pulses 2 + distally Sensation intact to monofilament exam. Vibratory sensation sensed is intact with 128 Hz tuning fork Results AMB Hemoglobin A1c AMB Hemoglobin A1c 6.2 % Last Edit by SHRUTHI Cochran on 12/20/24 09:09 Results Reviewed Results Reviewed: Laboratory Last Values Glucose (Clinic) 80 mg/dL (60-115) 12/20/24 09:00 Hgb A1c (Clinic) 6.2 % (4.0-6.0) H 12/20/24 09:09 Assessment & Plan Assessment & Plan (1) Diabetes mellitus: Code(s): E11.9 - Type 2 diabetes mellitus without complications Category: Medical Qualifiers: Diabetes mellitus type: type 2 Diabetes mellitus ocean transportation intermediary insulin use: with ocean transportation intermediary use Diabetes mellitus complication status: without complication Qualified Code(s): E11.9 - Type 2 diabetes mellitus without complications; Z79.4 - terminal operations manager (current) use of insulin Plan 59-year-old type 2 diabetes with morbid obesity and no known macro/macrovascular complications of diabetes with sleep apnea. Recommend reducing Lantus to 38 units Increase Mounjaro to 10 mg Continue Jardiance 25 mg She was counseled to start exercising 30 minutes daily with a goal to bring up to 60 minutes. Recommend that she engage in some type of activity that can be done also in the cold/hot/rainy weather such as doing a YouTube video or marching in place 30 minutes to a TV program. She was advised to watch for constipation with the increase Mounjaro dosing and make sure she is drinking plenty of water and taking an fiber. See the tobacco prevention health educator for general nutrition and review of diabetes basics. Incorporate more non starchy vegetables into her diet. Purchased the self directed 12 chapter book entitled the learn method for weight control which emphasizes lifestyle, exercise, attitudes, relationships and nutrition. The patient had an opportunity to ask questions regarding treatment plan. The patient expressed understanding and agreement with the above treatment plan. The patient is aware they should contact our office by phone for worsening glucose readings or for any low blood sugars which may warrant a change in diabetes medication. Compliance is encouraged with medications and any followup testing/consults which may have been ordered. Orders: Orders AMB Hemoglobin A1c Today E11.9 - Type 2 diabetes mellitus without com plications, Z79.4 - terminal operations manager (current) use of insulin Medications: New tirzepatide (Mounjaro) 10 mg (0.5 mL) subcut QWEEK 2 mL 11RF 28 days Changed From pen needle, diabetic (BD Khadijah 2nd Gen Pen Needle) USE 1 PEN NEEDLE ONCE A DAY #30 12RF E11.9 - Type 2 diabetes mellitus without complications, Z79.4 - terminal operations manager (current) use of insulin To pen needle, diabetic USE 1 PEN NEEDLE ONCE A DAY 100 ea 12RF E11.9 - Type 2 diabetes mellitus without complications, Z79.4 - nursing home (current) use of insulin Discontinued metronidazole Discontinued Reason: No Longer Medically Relevant 500 mg PO BID 7 days 14 tabs 0RF tirzepatide (Mounjaro) Discontinued Reason: Doctor's Order 7.5 mg (0.5 mL) subcut QWEEK 4 weeks 2 mL 11RF Patient Instructions: The patient was counseled to achieve a target A1C of 7% (154 avg). Fasting blood sugars should be 90-130 in the morning and less than 180 two hours after meals. Reviewed the relationship between poor diabetic control and the development of complications. Always carry a sugar source Check your feet daily looking for any signs of infection, drainage, redness, ulceration and seek medical attention if this occurs. Break in shoes gradually and do not wear open-toed shoes or walk stocking footed or barefooted. Coding Level of Care Code Est Pt Level 5 (35331) Diagnoses Type 2 diabetes mellitus without complication, with long-term current use of insulin E11.9; Z79.4 Diabetes mellitus type: type 2 Diabetes mellitus prison insulin use: with prison use Diabetes mellitus complication status: without complication Time Spent (min) 48 Comment Time spent reviewing labs/provider notes, face to face, chart doc
[2024-12-20 08:53] VITALS: BP 116/74; PULSE 74; O2SAT 97; BMI 42.3
[2024-12-20 09:04] LABS: Glucose, Whole Blood 80 mg/dL (60-115)
== END 2024-12-20 09:31 | disposition home or self-care (01) ==
LOC: HO.ENCR 08:47
PROVIDERS: PCP Internal Medicine; Visit Provider Nurse Practitioner Adult Health
DX: E11.9 Type 2 diabetes mellitus without complications (principal); Z79.4 Long term (current) use of insulin
CPT/HCPCS: 99215

== ENCOUNTER → 2024-12-20 08:47 | Outpatient (BNVA) | payer OTHER, SELFPAY | PROVIDERS: PCP Internal Medicine; Visit Provider Nurse Practitioner Adult Health | DX: E11.9 Type 2 diabetes mellitus without complications (principal); Z83.3 Family history of diabetes mellitus; Z79.4 Long term (current) use of insulin; Z79.84 Long term (current) use of oral hypoglycemic drugs | CPT/HCPCS: 82947; 83036 ==

== ENCOUNTER 2025-02-10 09:20 | Outpatient (AMB) | payer OTHER, SELFPAY ==
--- NOTE | 2025-02-10 09:56 | A.OFFVIS_ITS ---
Intake Intake Visit Reasons: T2DM Beer Maker Required: No Accompanied by: Self / Same As Patient Allergies sulfamethoxazole (From ) Allergy (Mild, Verified 12/20/24 08:53) Rash trimethoprim (From ) Allergy (Mild, Verified 12/20/24 08:53) Rash metformin Adverse Reaction (Intermediate, Verified 12/20/24 08:53) Diarrhea HPI Comprehensive Diabetes Asmnt Most Recent Diabetes Results: Hemoglobin A1c 6.7 % 07/14/18 Microalb/Creat Ratio TNP 09/09/24 Cholesterol, (<200) 126 mg/dL 09/09/24 HDL Cholesterol, (>40) 35 mg/dL L 09/09/24 Triglycerides, (<150) 279 mg/dL H 09/09/24 Creatinine, (0.5-1.4) 0.72 mg/dL 09/09/24 BUN, (9-16) 15 mg/dL 09/09/24 Sodium, (135-145) 143 mmol/L 09/09/24 Potassium, (3.3-5.1) 4.0 mmol/L 09/09/24 Chloride, (96-108) 109 mmol/L H 09/09/24 Carbon Dioxide, (22-29) 27 mmol/L 09/09/24 Calcium, (8.4-10.2) 9.0 mg/dL 09/09/24 AST, (5-31) 22 U/L 09/09/24 ALT, (0-31) 49 U/L H 09/09/24 Total Protein, (6.5-8.0) 7.6 g/dL 09/09/24 Albumin, (3.5-5.0) 4.0 g/dL 09/09/24 [facility] Medical History (Updated 11/14/24 @ 12:05 by Vero Mauricio CNM) Chronic pelvic pain in female Pelvic pain Hypothyroidism Thyroid cancer Right shoulder pain Vitamin D deficiency Mild recurrent major depression B12 deficiency Multinodular thyroid Morbid obesity with BMI of 40.0-44.9, adult Obesity due to excess calories Diabetes type 2, uncontrolled Essential hypertension Dyslipidemia JENNIFER on CPAP Abnormal Pap smear of cervix Sleep apnea Depression Diabetes mellitus Surgical History History of partial thyroidectomy Hx of colonoscopy Hx of mammogram History of removal of cyst Hx of laparoscopic gastric banding History of tubal ligation Family History Father Heart disease Hypertension Alzheimers disease CVD (cardiovascular disease) Diabetes Mental health disorder Mother Heart disease Hypertension CVD (cardiovascular disease) Arthritis Diabetes Maternal Grandmother No problems noted. Maternal Grandfather No problems noted. Paternal Grandmother Asthma Paternal Grandfather No problems noted. 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 Current occupational exposures/hazards: No Gender identity: Female Cognitive needs: No Hearing needs: No Vision needs: Yes (glasses) Female Reproductive History Menstrual Age of Menarche: 8 Assessment & Plan Assessment & Plan (1) Diabetes mellitus: Code(s): E11.9 - Type 2 diabetes mellitus without complications Qualifiers: Diabetes mellitus type: type 2 Diabetes mellitus paper novelty maker insulin use: with paper novelty maker use Diabetes mellitus complication status: without complication Qualified Code(s): E11.9 - Type 2 diabetes mellitus without complications; Z79.4 - boulevard glassware replacer (current) use of insulin Plan Learning objectives: The patient was provided with verbal and written education on the following topics as outlined below. The patient met all learning objectives and was able to verbalize understanding and provide teach back of education topics discussed . The patient was provided with the opportunity to ask questions and all questions were answered. Patient Assessment Assess patient education level/literacy/barriers, patient's last A1c on 12/20/2024 6.2%. Patient did not bring meter to today's visit Patient reports she has family history of diabetes Patient is on Mounjaro 10 mg weekly Jardiance 25 mg daily Lantus 38 units daily Patient denies hypoglycemia, and a missing medication doses Patient questions/concerns, patient's main concern is weight loss. She failed with lap band, she has concern regarding surgery. Is not interested at this time in other bariatric surgery options What is Diabetes? Pathophysiology How the body produces and uses insulin Identify type of DM Risk factors Signs of Diabetes Brief overview of Diabetes Management Monitoring blood sugar Following a meal plan Regular exercise Maintaining a healthy weight Taking medication as needed Members of the care team (PCP, RN, MA, RD, CDE, board lining machine operator) Blood glucose monitoring When/how often to test Target blood sugar ranges Introduction to Nutrition Importance of healthy diet in managing DM Diet is personalized to individual preference Review patient?s regular diet/food preferences Who prepares meals/does food shopping/ Dining out?/ Barriers? How diet effects glucose Eating 3 balanced meals a day with small, healthy snacks between meals Review food groups Carbohydrates: What is a carbohydrate/Which food/food groups are considered carbohydrates Effect of carbohydrates on blood glucose Portion sizes Reading food labels Basic carb counting (if applicable per nursing assessment) Plate method Meal planning Recommendations: Follow plate method, consistent carbs and read nutritional labels. Smart Goal: Patient will increase physical activity to 30 minutes a day 5 days a week Educational Materials: The patient was provided with the following written educational materials: Planning Healthy Meals Handout Patient Response to instructions: Comprehension of Instructions: Fair Readiness to make changes: Contemplation How confident they feel about making changes: Fair Portions of this note were created using voice recognition software, please excuse any words or phrases that may have been misinterpreted. Patient Instructions: Include regular daily activity. ADA recommends 30 minutes of exercise 5 days a week. Weight loss talk to PCP or Contract Preparer before starting new plan. Test blood sugar as directed; Fasting and 2hpp largest meal. Watch trends in results. Utilize results and to assess how food, physical activity and medications affect blood sugar results. Bring glucometer or CGM to next visit. Be knowledgeable about diabetes medication, its action, side effects, efficacy, toxicity, prescribed dosage, appropriate timing and frequency of administration, effect of missed and delayed doses and instructions for storage, travel and safety. Problem solving techniques to monitor hypo/hyperglycemia episodes and treatments. Reduce risk reduction behaviors, smoking cessation, regular eye, foot and dental examinations. Coding Level of Care Code Est Pt Level 1 (53028) Diagnoses Type 2 diabetes mellitus without complication, with long-term current use of insulin E11.9; Z79.4 Diabetes mellitus type: type 2 Diabetes mellitus chcf insulin use: with paper novelty maker use Diabetes mellitus complication status: without complication
== END 2025-02-10 10:12 | disposition home or self-care (01) ==
LOC: HO.ENCR 09:20
PROVIDERS: PCP Internal Medicine; Visit Provider Registered Nurse Diabetes Educator
DX: E11.9 Type 2 diabetes mellitus without complications (principal); Z79.4 Long term (current) use of insulin
CPT/HCPCS: 99499

== ENCOUNTER 2025-04-05 08:15 | Outpatient (REF) | payer OTHER, SELFPAY ==
[2025-04-05 10:10] LABS: Free T4 (Free Thyroxine) 1.23 ng/dL (0.71-1.85); Thyroid Stimulating Hormone 1.80 uIU/mL (0.32-4.0)
[2025-04-07 22:18] LABS: Thyroglobulin 0.2 ng/mL; Thyroglobulin Antibodies <1 IU/mL (< or = 1)
== END 2025-04-05 08:16 | disposition home or self-care (01) ==
LOC: HO.LAB 08:15
PROVIDERS: PCP Internal Medicine; Visit Provider Student in an Organized Health Care Education/Training Program
DX: C73 Malignant neoplasm of thyroid gland (principal); Z01.84 Encounter for antibody response examination
CPT/HCPCS: 36415; 84432; 84439; 84443; 86800

== ENCOUNTER 2025-04-11 10:35 | Outpatient (AMB) | payer OTHER, SELFPAY ==
[2025-04-11 10:39] VITALS: BP 106/72; PULSE 70; O2SAT 96; BMI 40.7
--- NOTE | 2025-04-11 10:39 | A.OFFVIS_ITS ---
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: No Accompanied by: Self / Same As Patient Allergies sulfamethoxazole (From ) Allergy (Mild, Verified 04/11/25 10:41) Rash trimethoprim (From ) Allergy (Mild, Verified 04/11/25 10:41) Rash metformin Adverse Reaction (Intermediate, Verified 04/11/25 10:41) Diarrhea Medication List - Last Reconciled 04/11/25 by Marychuy Da Silva MD atorvastatin 80 mg PO BEDTIME 90 days blood sugar diagnostic (FreeStyle Lite Strips) Use 1 test strip twice a day cyanocobalamin (vitamin B-12) 500 mcg PO DAILY 90 days diclofenac sodium 1% (Arthritis Pain (diclofenac)) 2 grams topical QID 14 days FreeStyle Lite Meter (blood-glucose meter) for use with test strips NS ibuprofen 600 mg PO Q8H PRN Jardiance (empagliflozin) 25 mg PO DAILY 90 days NS lancets (TRUEplus Lancets) Use 1 lancet two times a day Lantus Solostar U-100 Insulin (insulin glargine) 38 units (0.38 mL) subcut QPM 90 days NS levothyroxine 112 mcg PO DAILY 90 days lisinopril-hydrochlorothiazide 10-12.5 mg 1 tab PO DAILY lorazepam 0.5 mg PO DAILY PRN 30 days pen needle, diabetic USE 1 PEN NEEDLE ONCE A DAY sertraline 25 mg PO DAILY 90 days tirzepatide (Mounjaro) 10 mg (0.5 mL) subcut QWEEK 28 days HPI Comments Details: 59-year-old female here today for follow up of thyroid cancer status post right hemithyroidectomy 10/05/[address] 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 History of thyroid cancer in detail 07/27/2021: Ultrasound of the thyroid revealed a 1.5 cm right midpole nodule. 01/27/2022: FNA biopsy of this right midpole nodule came back as AUS [place] category 3, Afirma was suspicious, risk of malignancy 50%. 10/05/2022: Status post right hemithyroidectomy with Dr. Stefani Merrill at [facility] with the official surgical pathology revealing minimally invasive follicular carcinoma, tumor size was 1.6 cm, unifocal, no angioinvasion, no lymphatic invasion, no perineural invasion, no extrathyroidal extension. Margins were uninvolved. No lymph nodes were assessed. AJCC stage I, pT1b NX. YESI low risk of recurrence. 02/22/2023: Status post completion thyroidectomy, with benign pathology 10/24/2023: Ultrasound neck showed benign-appearing bilateral lymph nodes 09/09/2024: TSH 1.28, free T4 1.28, TG level 0.3, TG antibody less than 1 09/09/2024: Ultrasound of the neck , I reviewed the images myself showed normal- appearing lymph nodes bilaterally, though some of these have increased in size compared to previous such as a left level 3, lymph node which is now 2 X 0.8 X 1.2 cm, previously measured 1.4 X 0.7 X 1.1 cm. At left level 3 lymph node now measuring 1.2 X 0.4 X 0.7 cm, previously measured 0.5 and 0.4 X 0.5 cm. Interval history 04/05/2025: TSH 1.8, free T4 1.23, TG 0.2, TG antibody less 1 Currently on levothyroxine 112 mcg daily, appropriate administration and adherence No compressive symptoms Endorses constipation , lost 20 lbs on mounjaro No family history of thyroid cancer never smoker Type 2 diabetes mellitus Last seen by Joan Perez APRN in November 2024 Initially diagnosed with T2DM in 2018 Prior therapy Was initially started on treatment with metformin had diarrhea Current regimen: Lantus 34 units HS jardiance 25mg daily (she had a urine infection a month ago, treated it herself) Mounjaro 10 mg weekly on Sundays forgot meter, checks twoce a week in the morning and bedtime She is not interested in a sensor. Fasting by recall in 90s 2 hrs post dinner 135, 140 Reports low sugars none Family history of T2DM in mother who suffered complication of amputation Has eyes checked 2 years ago , last eye exam Due, referral sent encouraged to schedule [denies] retinopathy. Denies neuropathy, last foot exam November 2024 in the office, does not see podiatry. has some ingrown toe nails, referral to podiatry sent No nephropathy, on CITLALI inhibitor lisinopril 10 mg . 08/2024 microalbumin less than 5.0 eGFR>60 Has HLD, on statin. Last LDL 35 as measured on 08/2024.TGL 279 Denies CAD. Denies symptoms of chest pain, dyspnea or claudication. Diet: Has met with character impersonator once in the past does not wish to reschedule as she felt the character impersonator did not believe what she was eating. Breakfast: Coffee, 5-6 crackers, several pieces of cheese Lunch: Tuna fish 2 crackers Supper: Piece of lean meat, pineapple consumes about 1 vegetable per day Weight: lost 20 lbs since 2024 CDE 01/2025 Physical exam General: sitting comfortably in no acute distress HEENT: normocephalic/atraumatic Neck: supple, no palpable lymph nodes or masses Cardiac: normal heart sounds Pulm: normal breath sounds B/L, no added breath sounds Abd: not distended, no tenderness Extremities: no edema, no signs of myxedema Laboratory Tests 06/25/20 07/20/21 01/27/22 09:10 08:34 08:55 TSH 0.96 0.89 0.97 Free T4 0.86 0.95 Thyroglobulin Thyroglobulin Antibody <1 Thyroid Peroxidase Ab 1 05/17/22 11/05/22 04/18/23 10:57 08:55 09:40 TSH 0.82 2.18 0.16 L Free T4 0.95 0.91 1.15 Thyroglobulin 0.1 H Thyroglobulin Antibody <1 Thyroid Peroxidase Ab 07/15/23 09/02/23 12/02/23 08:59 09:33 08:38 TSH 0.27 L 2.36 0.65 Free T4 1.01 0.99 1.12 Thyroglobulin 0.1 H Thyroglobulin Antibody <1 Thyroid Peroxidase Ab 03/23/24 05/22/24 09/09/24 09:11 07:52 11:17 TSH 0.14 L 2.78 1.28 Free T4 1.28 Thyroglobulin 0.2 L Thyroglobulin Antibody Thyroid Peroxidase Ab Laboratory Tests 05/04/24 12/20/24 04/05/25 08:43 09:09 08:26 Hgb 13.5 Hct 43.5 Plt Count 251 Glucose (Clinic) Hgb A1c (Clinic) 6.2 H TSH 1.80 Free T4 1.23 Thyroglobulin 0.2 H Thyroglobulin Antibody <1 04/11/25 04/11/25 10:45 10:47 Hgb Hct Plt Count Glucose (Clinic) 136 H Hgb A1c (Clinic) 6.0 TSH Free T4 Thyroglobulin Thyroglobulin Antibody Laboratory Tests 05/04/24 09/09/24 09/09/24 08:43 11:17 12:00 Hgb 13.5 Hct 43.5 Plt Count 251 Creatinine 0.72 Estimated GFR > 60 Hgb A1c (Clinic) Triglycerides 279 H Cholesterol 126 LDL Cholesterol, Calc 36 HDL Cholesterol 35 L Urine Creatinine 75.65 Urine Microalbumin < 5.0 12/20/24 04/11/25 09:09 10:47 Hgb Hct Plt Count Creatinine Estimated GFR Hgb A1c (Clinic) 6.2 H 6.0 Triglycerides Cholesterol LDL Cholesterol, Calc HDL Cholesterol Urine Creatinine Urine Microalbumin US THYROID 09/09/24 CLINICAL INFORMATION: Malignant neoplasm of thyroid gland. Total thyroidectomy.. COMPARISON: Ultrasound dated October 24, 2023. TECHNIQUE: Linear transducer grayscale and color Doppler examination with attention to the region of the thyroid/surgical site. FINDINGS: SIZE: Measurements of the thyroid lobes and nodules are given in sagittal, anteroposterior and transverse dimensions respectively. No residual or recurrent thyroid tissue. Multiple prominent lymph nodes at both sides of the upper neck level's of nonionic, 2 3 and 5 b. The largest level 3 on the left iliac measures 2.0 x 0.8 x 1 point cm and previously measured 1.4 x 0.7 x 1.1 cm. New lymph node level 2 left neck measures 1.0 x 0.4 x 1.0 cm. New lymph node level 5 b on the left neck measures 0.7 x 0.3 x 0.6 cm. US/US soft tiss head and/or neck IMPRESSION: No residual or recurrent thyroid parenchyma lesion/mass. Nonspecific prominent lymph nodes, the largest level 3 on the left neck. Some are slightly larger since 2023. New 1 cm lymph nodes, level 2 and level 5 b on the left neck. Electronically signed by: Devon Llanes MD 09/09/2024 11:34 AM EDT US SOFT TISSUE HEAD/NECK 10/24/23 CLINICAL INFORMATION: Malignant neoplasm of thyroid gland. History of total thyroidectomy for thyroid cancer. Rule out persistence or recurrence. COMPARISON: Thyroid ultrasound 07/27/2021. TECHNIQUE: Linear transducer gomez-scale and color Doppler examination of the thyroid bed and surrounding soft tissue. FINDINGS: Interval removal of both lobes of the thyroid gland and the isthmus of the thyroid gland. No residual tissue or other abnormality is seen within the thyroid bed. A 0.7 x 0.4 x 0.6 cm and 0.7 x 0.3 x 0.6 cm benign-appearing lymph nodes are seen on the right at level 4. 0.5 x 0.4 x 0.5 cm benign-appearing lymph node is seen on the left at level 3. 1.4 x 0.7 x 1.0 cm and 1.0 x 0.7 x 0.8 cm benign-appearing lymph nodes on the left that level 3 with fatty rolly and no cortical thickening. 0.5 x 0.2 x 0.4 cm benign-appearing lymph node is seen on the left at level 5B. US/US soft tiss head and/or neck IMPRESSION: 1. Interval removal of both lobes of the thyroid gland and the isthmus of the thyroid gland. 2. Benign-appearing bilateral cervical lymph nodes. [facility] Medical History (Updated 04/11/25 @ 11:40 by Marychuy Da Silva MD) Dyslipidemia associated with type 2 diabetes mellitus Chronic pelvic pain in female Pelvic pain Hypothyroidism Thyroid cancer Right shoulder pain Vitamin D deficiency Mild recurrent major depression B12 deficiency Multinodular thyroid Morbid obesity with BMI of 40.0-44.9, adult Obesity due to excess calories Diabetes type 2, uncontrolled Essential hypertension Dyslipidemia JENNIFER on CPAP Abnormal Pap smear of cervix Sleep apnea Depression Diabetes mellitus Surgical History History of partial thyroidectomy Hx of colonoscopy Hx of mammogram History of removal of cyst Hx of laparoscopic gastric banding History of tubal ligation Family History Father Heart disease Hypertension Alzheimers disease CVD (cardiovascular disease) Diabetes Mental health disorder Mother Heart disease Hypertension CVD (cardiovascular disease) Arthritis Diabetes Maternal Grandmother No problems noted. Maternal Grandfather No problems noted. Paternal Grandmother Asthma Paternal Grandfather No problems noted. 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 Current occupational exposures/hazards: No Gender identity: Female Cognitive needs: No Hearing needs: No Vision needs: Yes (glasses) Female Reproductive History Menstrual Age of Menarche: 8 Physical Exam Vital Signs: Last Vital Signs Pulse 70 04/11/25 10:39 BP 106/72 04/11/25 10:39 Pulse Ox 96 04/11/25 10:39 Oxygen Delivery Method Room Air 04/11/25 10:39 BMI result Body Mass Index 40.7 Results AMB Hemoglobin A1c 2 AMB Hemoglobin A1c 6.0 % Last Edit by SHRUTHI Cochran on 04/11/25 10:55 Results Reviewed Results Reviewed: Laboratory Last Values Glucose (Clinic) 136 mg/dL (60-115) H 04/11/25 10:45 Hgb A1c (Clinic) 6.0 % (4.0-6.0) 04/11/25 10:47 Assessment & Plan Assessment & Plan (1) Thyroid cancer: Code(s): C73 - Malignant neoplasm of thyroid gland Category: Medical Plan: 59-year-old female here today for follow up of thyroid cancer status post right hemithyroidectomy 10/05/[address] 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 Most recent ultrasound of the neck from 09/09/2024, I reviewed the images myself shows normal-appearing bilateral lymph nodes. Some of these are comparatively larger compared to previous ultrasound in September 2023, however overall none of these look suspicious. We will plan to repeat an ultrasound of the neck in 1 year from this ultrasound in August 2025. Her unstimulated thyroglobulin remains low consistent with excellent response to therapy. 04/05/2025: TSH 1.8, free T4 1.23, TG 0.2, TG antibody less 1 Given excellent response to therapy, goal TSH 0.5-2. Plan: -continue levothyroxine 112 mcg daily -ordered TSH, free T4, TG and TG antibodies to be done prior to follow up in August 2025 -next ultrasound of the neck would be due August 2025 (2) Hypothyroidism: Code(s): E03.9 - Hypothyroidism, unspecified Category: Medical Qualifiers: Hypothyroidism type: postoperative Qualified Code(s): E89.0 - Postprocedural hypothyroidism Plan: An excellent response to therapy, goal TSH 0.5-2. Labs from mar 2025 showed TSH within goal. Plan: -ordered TSH, free T4, to be done prior to follow up in August 2025 -continue levothyroxine 112 mcg daily (3) Dyslipidemia associated with type 2 diabetes mellitus: Code(s): E11.69 - Type 2 diabetes mellitus with other specified complication; E78.5 - Hyperlipidemia, unspecified Category: Medical Plan: LDL 63 mg/dL from August 2024. Continue atorvastatin 80 mg daily, ordered lipid panel to be done prior to next follow up in August 2025. 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 A1c 04/11/2025 at 6%. She did not bring her glucometer but by recall her fasting and post meal numbers have been within good range. We will continue current regimen. She did report a recent urine infection that she had, but unclear if it was not really a urine infection. I did discuss with her importance of letting us know so that if she is having recurrent UTIs she will have to come off Jardiance. Plan: -continue Lantus 34 units daily -continue Jardiance 25 mg daily -continue Mounjaro 10 mg weekly injection -podiatry referral sent -overdue for eye visit, no history of retinopathy, ophthalmology referral sent -due for annual labs prior to next visit in August 2025, ordered Plan I spent 45 minutes in reviewing the record, seeing the patient and documenting in the medical record. Orders: Orders 2 AMB Hemoglobin A1c Today E11.9 - Type 2 diabetes mellitus without complications, Z79.4 - MCC (current) use of insulin Thyroid Stimulating Hormone 08/04/25 C73 - Malignant neoplasm of thyroid gland, E89.0 - Postprocedural hypothyroidism Free T4 (Free Thyroxine) 08/04/25 C73 - Malignant neoplasm of thyroid gland, E89.0 - Postprocedural hypothyroidism Thyroglobulin 08/04/25 C73 - Malignant neoplasm of thyroid gland, E89.0 - Postprocedural hypothyroidism Hemoglobin A1c 08/04/25 E11.9 - Type 2 diabetes mellitus without complications, E78.5 - Hyperlipidemia, unspecified, Z79.4 - ferry terminal supervisor (current) use of insulin Microalbumin, Random (w Creat) 08/04/25 E11.9 - Type 2 diabetes mellitus without complications, E78.5 - Hyperlipidemia, unspecified, Z79.4 - ferry terminal supervisor (current) use of insulin Creatinine 08/04/25 E11.9 - Type 2 diabetes mellitus without complications, E78.5 - Hyperlipidemia, unspecified, Z79.4 - MCC (current) use of insulin Complete Blood Count no Diff 08/04/25 E11.9 - Type 2 diabetes mellitus without complications, E78.5 - Hyperlipidemia, unspecified, Z79.4 - MCC (current) use of insulin Aspartate Amino Transferase Today E78.5 - Hyperlipidemia, unspecified Alanine Aminotransferase 08/04/25 E11.9 - Type 2 diabetes mellitus without complications, E78.5 - Hyperlipidemia, unspecified, Z79.4 - ferry terminal supervisor (current) use of insulin Thyroglobulin Antibodies 08/04/25 C73 - Malignant neoplasm of thyroid gland, E89.0 - Postprocedural hypothyroidism Thyroglobulin Tumor Marker 08/04/25 C73 - Malignant neoplasm of thyroid gland, E89.0 - Postprocedural hypothyroidism US soft tiss head and/or neck 08/04/25 C73 - Malignant neoplasm of thyroid gland, E89.0 - Postprocedural hypothyroidism Lipid Panel 08/04/25 E11.9 - Type 2 diabetes mellitus without complications, E78.5 - Hyperlipidemia, unspecified, Z79.4 - MCC (current) use of insulin Referrals 2 Ophthalmology Referral E11.9 - Type 2 diabetes mellitus without complications, Z79.4 - MCC (current) use of insulin Podiatry Referral E11.9 - Type 2 diabetes mellitus without complications, Z79.4 - MCC (current) use of insulin Medications: Changed 2 From Lantus Solostar U-100 Insulin (insulin glargine) pharmacy dose was reduced to 38 units 38 units (0.38 mL) subcut QPM 90 days 36 mL 3RF NS To Lantus Solostar U-100 Insulin (insulin glargine) 34 units (0.34 mL) subcut QPM 30.6 mL 3RF 90 days NS Refilled 2 levothyroxine 112 mcg PO DAILY 90 tabs 5RF 90 days Jardiance (empagliflozin) 25 mg PO DAILY 90 tabs 5RF 90 days NS Patient Instructions: Continue levothyroxine 112 mcg daily Do thyroid blood work 2 weeks before your next follow up with me in August 2025 Do ultrasound of the thyroid sometime in July 2025, someone we will call you to schedule this, please make sure this is done before your next follow up with me in August 2025 For your diabetes Continue Jardiance 25 mg daily, if you start having repeated urine infections or yeast infections please let us know Continue Lantus 34 units daily at bedtime Continue Mounjaro 10 mg weekly injection Continue to monitor blood sugars fasting, normal target is 90-110 mg/dL Continue to monitor blood sugars 2 hours post meal, 2 hours after meal blood sugar should be less than 140 mg/dL See the foot doctor, referral sent See the eye doctor, referral sent below is there number Do fasting blood work and urine test prior to your next appointment Coding Level of Care Code Est Pt Level 5 (17916) Complex EM visit Add On [id number] Diagnoses Thyroid cancer C73 Postoperative hypothyroidism E89.0 Hypothyroidism type: postoperative Dyslipidemia associated with type 2 diabetes mellitus E11.69; E78.5 Type 2 diabetes mellitus without complication, with long-term current use of insulin E11.9; Z79.4 Diabetes mellitus type: type 2 Diabetes mellitus care home insulin use: with care home use Diabetes mellitus complication status: without complication Time Spent (min) 45
[2025-04-11 10:49] LABS: Glucose, Whole Blood 136 mg/dL (60-115)
== END 2025-04-11 11:36 | disposition home or self-care (01) ==
LOC: HO.ENCR 10:35
PROVIDERS: PCP Internal Medicine; Visit Provider Student in an Organized Health Care Education/Training Program
DX: E11.69 Type 2 diabetes mellitus with other specified complication (principal); Z79.4 Long term (current) use of insulin; C73 Malignant neoplasm of thyroid gland; E89.0 Postprocedural hypothyroidism; E78.5 Hyperlipidemia, unspecified
CPT/HCPCS: 99215; G2211

== ENCOUNTER → 2025-04-11 10:35 | Outpatient (BNVA) | payer OTHER, SELFPAY | PROVIDERS: PCP Internal Medicine; Visit Provider Student in an Organized Health Care Education/Training Program | DX: E11.9 Type 2 diabetes mellitus without complications (principal) | CPT/HCPCS: 82947; 83036 ==

== ENCOUNTER 2025-04-23 13:16 | Outpatient (REF) | payer OTHER, SELFPAY ==
--- OUTSIDE RECORDS SUMMARY | 2025-04-18 23:59 | XMS_ITS | Continuity of Care Document ---
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 Machine Operator Name Role Phone Dinh Mckeon MD, Joanne Miramontes Primary Care Physician [facility] [id number] Date(s): 12/19/24 - 04/18/25 [facility] [address] [place] [address], [address] [place], [place] [address] Attending Physician: Mireya Onofre MD Referring Physician: Dinh Mckeon MD , Joanne Miramontes Encounter Type: Pre Office Visit Allergies, Adverse Reactions, Alerts Substance Criticality Severity Reaction Reaction Severity Status Bactrim chest pain Active metFORMIN Active Septra DS chest pain Active Medications acetaminophen 325 mg oral tablet 650 mg, 2, tablet, By Mouth, Every 4 hours, # 36 tablet, Refills 0, Tot. Refills 0, Soft Stop, 02/22/23 12:13:00 PM EDT, Route to Pharmacy Electronically, [facility]/pharmacy #[id number], Partial fill upon patientrequest if the prescription is for a schedule II opioid drug., 157, cm, 02/22/23 8:31:00 EDT, Height, 106.4, kg, 02/22/23 8:31:00 EDT, Dry Weight Start Date: 02/22/23 Stop Date: 02/25/23 Status: Ordered Medication Dispense Status: Completed Quantity: 36.0 Unit: tablet Total Allowed Fills: 1 Fills Dispensed: 0 atorvastatin 40 mg oral tablet 2 tablet = 80 mg, By Mouth, Daily in AM, 0 Refills, Maintenance, 06/10/22 11:58:00 AM EST, Partial fill upon patient request if the prescription is for a schedule II opioid drug. Start Date: 06/10/22 Status: Ordered Medication Dispense Status: Completed Total Allowed Fills: 1 Fills Dispensed: 0 diclofenac 1% topical gel 0 Refills, Maintenance, 06/10/22 11:57:00 AM EST, Partial fill upon patient request if the prescription is for a schedule II opioid drug. Start Date: 06/10/22 Status: Ordered Medication Dispense Status: Completed Total Allowed Fills: 1 Fills Dispensed: 0 hydrochlorothiazide-lisinopril 12.5 mg-10 mg oral tablet 1 tablet, By Mouth, Daily in AM, 0 Refills, Maintenance, 06/10/22 11:57:00 AM EST, Partial fill upon patient request if the prescription is for a schedule II opioid drug. Start Date: 06/10/22 Status: Ordered Medication Dispense Status: Completed Total Allowed Fills: 1 Fills Dispensed: 0 Jardiance 25 mg oral tablet 1 tablet = 25 mg, By Mouth, Daily in AM, 0 Refills, Maintenance, 06/10/22 11:56:00 AM EST, Partial fill upon patient request if the prescription is for a schedule II opioid drug. Start Date: 06/10/22 Status: Ordered Medication Dispense Status: Completed Total Allowed Fills: 1 Fills Dispensed: 0 levothyroxine 150 mcg (0.15 mg) oral tablet 1 tablet = 150 mcg, By Mouth, Daily, # 30 tablet, 2 Refills, Maintenance, 02/22/23 12:11:00 PM EDT, Tablet, [facility]/pharmacy #[id number], Partial fill upon patient request if the prescription is for a schedule II opioid drug., 157, cm, 02/22/23 8:31:00 EDT, Height, 106.4, kg, 02/22/23 8:31:00 EDT, Dry Weight Start Date: 02/22/23 Stop Date: 05/23/23 Status: Ordered Medication Dispense Status: Completed Quantity: 30.0 Unit: tablet Total Allowed Fills: 3 Fills Dispensed: 0 Tresiba FlexTouch 100 units/mL subcutaneous solution = 30 units, INJECT 36 UNITS (0.36 ML) SUBCUTANEOUSLY AT BEDTIME FOR 90 DAYS Start Date: 09/05/22 Status: Ordered Medication Dispense Status: Completed Total Allowed Fills: 1 Fills Dispensed: 0 Trulicity Pen 3 mg/0.5 mL subcutaneous solution = 3 mg, Subcutaneous Injection, Every 7 days, uses on Monday , 0 Refills, Maintenance, 06/10/22 11:56:00 AM EST, Partial fill upon patient request if the prescription is for a schedule II opioid drug. Start Date: 06/10/22 Status: Ordered Medication Dispense Status: Completed Total Allowed Fills: 1 Fills Dispensed: 0 Vitamin B-12 500 mcg oral tablet 1 tablet = 500 mcg, By Mouth, Daily, # 30 tablet, 0 Refills, Maintenance, 06/10/22 11:56:00 AM EST,Tablet, Partial fill upon patient request if the prescription is for a schedule II opioid drug. Start Date: 06/10/22 Status: Ordered Medication Dispense Status: Completed Quantity: 30.0 Unit: tablet Total Allowed Fills: 1 Fills Dispensed: 0 Problem List Condition Confirmation Course Effective Dates Status Health St atus Informant Severe obesity Confirmed Active Thyroid nodule Confirmed Active Social History Social History Type Response Smoking Status Never (less than 100 in lifetime) entered on: 06/10/22 Sex Sex Representation Female (finding) Patient Care team information Care Team Personnel Name: Dinh Mckeon MD , Joanne Miramontes Position: Reference Physician Member Role: PCP Address: [address] [place] [address] [address] Telecom: Care Team Related Persons Name: CHAS WADE Name: SAMARIA WADE SR Insurance Providers Guarantor name: ABEL Health Plan Information #: 1 Payer: [facility] HMO Payer Identifier: ABEL Member Number: [id number] Group Number: [id number] Subscriber Identifier: [id number] Relationship to Subscriber: self Coverage Type: Commercial Managed Care - HMO Coverage Verification Date: NA Telecom: NA Address:
--- NOTE | ~2025-04-23 | MM_ITS ---
EXAMINATION: MM DIAGNOSTIC DIGITAL BREAST TOMOSYNTHESIS, BILATERAL CLINICAL INFORMATION: 1 year follow-up for right breast grouped calcifications in the upper outer quadrant posterior depth. Personal history of ovarian cancer. COMPARISON: Mammography: Comparison is made with relevant prior exams. TECHNIQUE: Digital breast mammography with tomosynthesis is performed in both the craniocaudal and mediolateral oblique views along with computer-aided detection (CAD). FINDINGS: There are scattered areas of fibroglandular density. Right:: Grouped amorphous calcifications in the upper outer quadrant posterior depth are slightly coarse but similar in number in comparison with prior magnification views dating back for one year. No suspicious masses or other abnormal findings. Left: No suspicious masses calcifications or other abnormal findings. Results are provided to the patient at time of visit by the technologist. MM/MM tomosynthesis diagnostic BI IMPRESSION: Grouped calcifications in the upper outer right breast posterior depth are slightly coarser however similar in number compared with prior magnification views dating back for one year. Options of 1 year diagnostic mammogram with magnification views versus stereotactic biopsy were offered to the patient. Patient prefers stereotactic biopsy at this time. ASSESSMENT: BI-RADS Category 4: Suspicious RECOMMENDATION: Biopsy recommended Electronically signed by: Kaya Barbosa DO 04/24/2025 12:23 PM EDT
== END 2025-04-23 13:17 | disposition home or self-care (01) ==
LOC: HO.MAMMO 13:16
PROVIDERS: PCP Internal Medicine; Visit Provider Internal Medicine
DX: R92.1 Mammographic calcification found on diagnostic imaging of breast (principal)
CPT/HCPCS: 77062; 77066

== ENCOUNTER → 2025-04-23 13:30 | Outpatient (BNV) | payer OTHER, SELFPAY | PROVIDERS: PCP Internal Medicine; Visit Provider Internal Medicine | DX: R92.1 Mammographic calcification found on diagnostic imaging of breast (principal) | CPT/HCPCS: 77066; G0279 ==

== ENCOUNTER 2025-04-28 09:13 | Outpatient (AMB) | payer OTHER, SELFPAY ==
[2025-04-28 09:34] VITALS: BMI 41.1
--- NOTE | 2025-04-28 09:34 | MHC.OFFVIS ---
Vital Signs 04/28/25 09:34 Height 5 ft 2 in Weight 225 lb BMI 41.1 Intake Visit Reasons: Type 2 diabetes mellitus without complications Intake Note: Keke is a 59 year old female who presents today as a new patient for a diabetic foot exam. Pt reports her last known glucose was 137 as of yesterday and her last reported a1c was 6%. She experiences occasional numbness and tingling in her feet without burning. Patient denies any history of wounds or amputations to her feet. Patient has concerns of possible fungus growth on her right hallux. Allergies sulfamethoxazole (From Septra) Allergy (Mild, Verified 04/28/25 09:35) Rash trimethoprim (From Septra) Allergy (Mild, Verified 04/28/25 09:35) Rash metformin Adverse Reaction (Intermediate, Verified 04/28/25 09:35) Diarrhea HPI Comments Details: The patient is a 59-year-old female with a PMH as seen below presenting with concerns related to foot health, primarily focusing on nail issues and neuropathy associated with diabetes. The patient reports a history of diabetes mellitus, with recent blood sugar levels recorded at 137 mg/dL postprandial. She experiences intermittent numbness and tingling, primarily in the hands and feet, which is monitored but not currently treated with medication. The patient has noticed changes in her B/L hallux toenails including increased thickness and discoloration. She applies an OTC antifungal nail guyanese regularly. She denies any pedal injuries. Denies any other pedal concerns. [facility] Medical History (Updated 04/28/25 @ 09:56 by Dhara Enamorado DPM) Diabetic neuropathy Nail dystrophy Nail disorder Onychomycosis Dyslipidemia associated with type 2 diabetes mellitus Chronic pelvic pain in female Pelvic pain Hypothyroidism Thyroid cancer Right shoulder pain Vitamin D deficiency Mild recurrent major depression B12 deficiency Multinodular thyroid Morbid obesity with BMI of 40.0-44.9, adult Obesity due to excess calories Diabetes type 2, uncontrolled Essential hypertension Dyslipidemia JENNIFER on CPAP Abnormal Pap smear of cervix Sleep apnea Depression Diabetes mellitus Surgical History History of partial thyroidectomy Hx of colonoscopy Hx of mammogram History of removal of cyst Hx of laparoscopic gastric banding History of tubal ligation Family History Father Heart disease Hypertension Alzheimers disease CVD (cardiovascular disease) Diabetes Mental health disorder Mother Heart disease Hypertension CVD (cardiovascular disease) Arthritis Diabetes Maternal Grandmother No problems noted. Maternal Grandfather No problems noted. Paternal Grandmother Asthma Paternal Grandfather No problems noted. 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 - Endocrine: Reports blood sugar levels with recent postprandial reading of 137 mg/dL. All systems reviewed & are unremarkable except as noted in HPI and below Physical Exam Vital Signs: BMI result Body Mass Index 41.1 Extrem Other: B/L LE Focused Physical Exam: Derm: Thickened, discolored, elongated, and incurvated B/L hallucal toenails with subungual debris noted. Remaining toenails x8 WNL. No open lesions, abrasions, or wounds noted. Scarring noted to dorsum of left hindfoot with no drainage, purulence, or bleeding noted. Skin supple and turgor WNL. No ecchymosis or discoloration noted. No clinical signs of infection noted. Vasc: DP/PT pulses palpable. CFT < 3 secs. Temp gradient warm to warm. Pedal hair diminshed. No varicosities noted. No edema noted. Neuro: Protective sensations grossly intact to light touch and monofilament testing, but patient reports intermittent numbness and tingling to feet. MSK: Minimal pain on palpation to incurvated medial and lateral nail borders to B/L halluces. No crepitus or fluctuance noted. ROM of the forefoot, hindfoot, and ankles WNL. Nonantalgic gait unassisted noted. Class B and C findings noted. Office Procedures AMB Debridement/Avulsion Podia Details: Debrided B/L hallucal toenails using sterile nail nippers with no incidents. Nail samples sent to pathology and microbiology. 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: with dedicated intermodal truck driver use Diabetes mellitus complication status: without complication Qualified Code(s): E11.9 - Type 2 diabetes mellitus without complications; Z79.4 - supervisor intermediates (current) use of insulin (2) Onychomycosis: Code(s): B35.1 - Tinea unguium Category: Medical (3) Diabetic neuropathy: Code(s): E11.40 - Type 2 diabetes mellitus with diabetic neuropathy, unspecified Category: Medical (4) Nail disorder: Code(s): L60.9 - Nail disorder, unspecified Category: Medical (5) Nail dystrophy: Code(s): L60.3 - Nail dystrophy Category: Medical (6) Diabetes mellitus: Code(s): E11.9 - Type 2 diabetes mellitus without complications Category: Medical Qualifiers: Diabetes mellitus type: type 2 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 Educated patient on diabetes and the effects on the lower extremities. I discussed with the patient the importance of maintaining blood sugar control to prevent the progression of neuropathy. We also talked about the potential for onychomycosis. I emphasized the importance of regular foot care and monitoring for any signs of infection, advising immediate contact if any issues arise. We agreed on a follow-up plan to reassess the condition and adjust treatment as necessary. - Continue monitoring blood sugar levels to prevent worsening of neuropathy and continue diabetic management as per PCP. - Debrided B/L hallucal toenails and sent samples to pathology and microbiology. - Prescribed ciclopirox to be applied daily with filings in between each application. - Advised patient to wear supportive shoe gear and to avoid barefoot walking. RTC in 9 weeks for routine diabetic nail care. Orders: Orders AMB Diabetic Foot Exam Today E11.40 - Type 2 diabetes mellitus with diabetic neuropathy, unspecified, E11.9 - Type 2 diabetes mellitus without complications, Z79.4 - shelter (current) use of insulin AMB Debridement/Avulsion Podiatry Today B35.1 - Tinea unguium, E11.40 - Type 2 diabetes mellitus with diabetic neuropathy, unspecified, E11.9 - Type 2 diabetes mellitus without complications, L60.3 - Nail dystrophy, L60.9 - Nail disorder, unspecified, Z79.4 - shelter (current) use of insulin Surgical Today B35.1 - Tinea unguium, E11.40 - Type 2 diabetes mellitus with diabetic neuropathy, unspecified, L60.3 - Nail dystrophy, L60.9 - Nail disorder, unspecified Fungus Cult Hair/Skin/Nail Today B35.1 - Tinea unguium, L60.3 - Nail dystrophy, L60.9 - Nail disorder, unspecified Coding Level of Care Code Tele New Pt Level 4 (95707) Diagnoses Type 2 diabetes mellitus without complication, with long-term current use of insulin E11.9; Z79.4 Diabetes mellitus type: type 2 Diabetes mellitus senior care insulin use: with senior care use Diabetes mellitus complication status: without complication Onychomycosis B35.1 Diabetic neuropathy E11.40 Nail disorder L60.9 Nail dystrophy L60.3 CPT Codes Skin Debridement - CPT: 35832-Ayhyrdzowwl of Nail <6 ([id number]) Diabetic Foot Exam - CPT: G9226 - Diabetic Foot Exam ([id number]) Time Spent (min) 53 Comment 8 mins for procedure
== END 2025-04-28 10:03 | disposition home or self-care (01) ==
LOC: HO.HPODS 09:14
PROVIDERS: PCP Internal Medicine; Visit Provider Student in an Organized Health Care Education/Training Program
DX: B35.1 Tinea unguium (principal); L60.3 Nail dystrophy; L60.9 Nail disorder, unspecified; E11.40 Type 2 diabetes mellitus with diabetic neuropathy, unspecified; Z79.4 Long term (current) use of insulin
CPT/HCPCS: 11720; 99204; G9226

== ENCOUNTER 2025-04-28 09:13 | Outpatient (REF) | payer OTHER, SELFPAY | END 2025-04-28 09:14 | disposition home or self-care (01) | LOC: HO.LNP 09:13 | PROVIDERS: PCP Internal Medicine; Visit Provider Student in an Organized Health Care Education/Training Program | DX: E11.40 Type 2 diabetes mellitus with diabetic neuropathy, unspecified (principal); B35.1 Tinea unguium; L60.3 Nail dystrophy; Z79.4 Long term (current) use of insulin | CPT/HCPCS: 11720; 88304; 88311; 88312 ==

== ENCOUNTER 2025-04-29 18:13 | Outpatient (REF) | payer OTHER, SELFPAY | END 2025-04-29 18:14 | disposition home or self-care (01) | LOC: HO.HKASLDS 18:13 | PROVIDERS: Visit Provider Student in an Organized Health Care Education/Training Program | DX: L60.3 Nail dystrophy (principal); B35.1 Tinea unguium | CPT/HCPCS: 87101; 87220 ==

== ENCOUNTER 2025-05-01 11:08 | Outpatient (AMB) | payer OTHER, SELFPAY ==
--- NOTE | 2025-05-01 11:27 | MHC.OFFVIS ---
Vital Signs 05/01/25 11:28 Height 5 ft 2 in Weight 221 lb BMI 40.4 BP 117/57 L Blood Pressure Location Rt brachial Position Sitting Pulse 67 Intake Visit Reasons: stereo bx (R) brst upper outer quand calcification Intake Note: This patient presents for breast consult for Stereotactic biopsy right breast upper outer quadrant calcifications. Pt c/o; reports no breast complaints at this time. 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 She had a mammogram and last 04/23/2025 for a follow up for calcifications. This showed the grouped calcifications in the upper outer right breast slightly coarser number. She was given the option of a 1 year diagnostic mammogram with magnification views versus stereotactic biopsy and she says she preferred to have a stereotactic biopsy. She denies any palpable breast mass Her menarche was at the age of 8. She had 2 pregnancies. Her 1st was the age of 17. She had menopause at age of 49. She denies any strong family history of breast cancer. [facility] Medical History Breast calcification, right Diabetic neuropathy Nail dystrophy Nail disorder Onychomycosis Dyslipidemia associated with type 2 diabetes mellitus Chronic pelvic pain in female Pelvic pain Hypothyroidism Thyroid cancer Right shoulder pain Vitamin D deficiency Mild recurrent major depression B12 deficiency Multinodular thyroid Morbid obesity with BMI of 40.0-44.9, adult Obesity due to excess calories Diabetes type 2, uncontrolled Essential hypertension Dyslipidemia JENNIFER on CPAP Abnormal Pap smear of cervix Sleep apnea Depression Diabetes mellitus Surgical History History of partial thyroidectomy Hx of colonoscopy Hx of mammogram History of removal of cyst Hx of laparoscopic gastric banding History of tubal ligation Family History Father Heart disease Hypertension Alzheimers disease CVD (cardiovascular disease) Diabetes Mental health disorder Mother Heart disease Hypertension CVD (cardiovascular disease) Arthritis Diabetes Maternal Grandmother No problems noted. Maternal Grandfather No problems noted. Paternal Grandmother Asthma Paternal Grandfather No problems noted. 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 Current occupational exposures/hazards: No Gender identity: Female Cognitive needs: No Hearing needs: No Vision needs: Yes (glasses) Female Reproductive History Menstrual Age of Menarche: 8 Total pregnancies: 2 Full term: 2 Physical Exam Vital Signs: Last Vital Signs Pulse 67 05/01/25 11:28 BP 117/57 L 05/01/25 11:28 BMI result Body Mass Index 40.4 Chest Other: No palpable breast masses, no axillary lymphadenopathy Assessment & Plan Assessment & Plan (1) Breast calcification, right: Code(s): R92.1 - Mammographic calcification found on diagnostic imaging of breast Category: Medical Plan: She wants to proceed with stereotactic biopsy of the right breast calcifications. I explained to her the technique of this procedure. I will see her again in the office the week after her mammogram so we can review the path report She is comfortable with the plan. Orders: Orders MM stereotactic biopsy RT Today R92.1 - Mammographic calcification found on diagnostic imaging of breast Coding Level of Care Code New Pt Level 3 (06885) Diagnoses Breast calcification, right R92.1
[2025-05-01 11:28] VITALS: BP 117/57; PULSE 67; BMI 40.4
== END 2025-05-01 11:44 | disposition home or self-care (01) ==
LOC: HO.HGS 11:08
PROVIDERS: PCP Internal Medicine; Visit Provider Surgery
DX: R92.1 Mammographic calcification found on diagnostic imaging of breast (principal)
CPT/HCPCS: 99203

== ENCOUNTER 2025-05-05 07:53 | Outpatient (REF) | payer OTHER, SELFPAY ==
--- OUTSIDE RECORDS SUMMARY | 2025-05-03 23:59 | XMS_ITS | Continuity of Care Document ---
Author Organization [facility] Address [address], [address] [place] [address]- Care Team Providers Care Rehab Therapist Name Role Phone Dinh Mckeon MD, Joanne Miramontes Primary Care Physician [id number] Date(s): 04/03/25 - 05/03/25 [facility] [address], [address] [place], [place] [address] Attending Physician: Admtr, Ar8 Admitting Physician: Admtr, Ar8 Referring Physician: Admtr, Ar8 Encounter Type: Triage Allergies, Adverse Reactions, Alerts Substance Criticality Severity Reaction Reaction Severity Status Bactrim chest pain Active metFORMIN Active Septra DS chest pain Active Medications acetaminophen 325 mg oral tablet 650 mg, 2, tablet, By Mouth, Every 4 hours, # 36 tablet, Refills 0, Tot. Refills 0, Soft Stop, 02/22/23 12:13:00 PM EDT, Route to Pharmacy Electronically, [facility]/pharmacy #[id number], Partial fill upon patientrequest if the prescription [...] Refills, Maintenance, 02/22/23 12:11:00 PM EDT, Tablet, [facility]/pharmacy #[id number], Partial fill upon patient request if the [...] Position: Reference Physician Member Role: PCP Address: [address] [place] [address] [address] [place], [place] [address] Telecom: Care Team Related Persons Name: CHAS WADE Name: SAMARIA WADE SR Insurance Providers Guarantor name: ABEL Health Plan Information #: 1 Payer: [facility] HMO Payer Identifier: ABEL Member Number: [id number] Group Number: [id number] Subscriber Identifier: ABEL Relationship to Subscriber: self Coverage Type: Commercial Managed Care - HMO Coverage Verification Date: ABEL Telecom: NA Address:
--- OUTSIDE RECORDS SUMMARY | 2025-05-03 23:59 | XMS_ITS | Continuity of Care Document ---
Author Organization [facility] Address [address], [address] [place] [address]- Care Team Providers Care Vice President Name Role Phone Dinh Mckeon MD, Joanne Miramontes Primary Care Physician Encounter [facility] [id number] Date(s): 01/03/25 - 05/03/25 [facility] [address] [place] [address], [address] [place], [place] [address] Attending Physician: Grayson Sim MD Referring Physician: Dinh Mckeon MD , Joanne Miramontes Encounter Type: Pre Office Visit Allergies, Adverse Reactions, Alerts Substance Criticality Severity Reaction Reaction Severity Status Bactrim chest pain Active Septra DS chest pain Active metFORMIN Active Medications acetaminophen 325 mg oral tablet 650 mg, 2, tablet, By Mouth, Every 4 hours, # 36 tablet, Refills 0, Tot. Refills 0, Soft Stop, 02/22/23 12:13:00 PM EDT, Route to Pharmacy Electronically, [facility]/pharmacy #[id number], Partial fill upon patientrequest if the prescription [...] Refills, Maintenance, 02/22/23 12:11:00 PM EDT, Tablet, [facility]/pharmacy #[id number], Partial fill upon patient request if the [...] Position: Reference Physician Member Role: PCP Address: [address] [place] [address] [address] [place] [address] Telecom: Care Team Related Persons Name: CHAS WADE Name: SAMARIA WADE SR Insurance Providers Guarantor name: ABEL Health Plan Information #: 1 Payer: [facility] HMO Payer Identifier: ABEL Member Number: [id number] Group Number: [id number] Subscriber Identifier: [id number] Relationship to Subscriber: self Coverage Type: Commercial Managed Care - HMO Coverage Verification Date: ABEL Telecom: Address:
--- NOTE | ~2025-05-05 | MM_ITS ---
EXAMINATION: MM SCREENING DIGITAL BREAST TOMOSYNTHESIS, RIGHT CLINICAL INFORMATION: Today, patient was scheduled for a stereotactic core biopsy of the right breast grouped calcifications in the upper outer quadrant, initially described on the screening mammogram on February 16, 2024. Second six-month follow-up with spot magnified compression views in March 2025 describes these calcifications as slightly coarser, similar in number compared with prior magnification views dating back for one year. Patient was offered the option of one-year diagnostic mammogram with magnification views versus a stereotactic biopsy and patient preferred a stereotactic biopsy at this time. COMPARISON: Comparison made to multiple prior, most recent diagnostic mammogram on April 23, 2025, and most remote February 10, 2023. TECHNIQUE: Digital breast tomosynthesis is performed in full-field latero-medial 90 degrees with computer-aided detection (CAD), in preparation for stereotactic needle core biopsy. Synthesized 2D images are generated from the tomosynthesis. FINDINGS: BREAST COMPOSITION: There are scattered areas of fibroglandular density. RIGHT BREAST: Redemonstration of previously described known grouped calcifications in the upper outer quadrant, located at about 12 cm from the nipple. The prior images were reviewed with the patient, and the options of proceeding with scheduled to stereotactic needle core biopsy or follow-up imaging were discussed. Today, the patient agreed with a short-term six months follow-up diagnostic mammogram with magnification views. Therefore, today's stereotactic needle core biopsy was canceled. MM/MM tomosynthesis diagnostic RT IMPRESSION: RIGHT BREAST: Grouped calcifications in the upper outer quadrant posterior depth, slightly coarsening since spot magnified compression views in March 2023. Probably benign. A 6-month follow-up diagnostic mammogram is recommended with spot magnified compression views. ASSESSMENT: BI-RADS: Category 3: Probably benign RECOMMENDATION: 6 Month F/U Results were discussed with the patient at time of visit by me. Electronically signed by: Clayton Brooke MD 05/05/2025 08:52 AM [facility]
== END 2025-05-05 07:54 | disposition home or self-care (01) ==
LOC: HO.MAMMO 07:53
PROVIDERS: PCP Internal Medicine; Visit Provider Surgery
DX: R92.1 Mammographic calcification found on diagnostic imaging of breast (principal)
CPT/HCPCS: 77061; 77065

== ENCOUNTER → 2025-05-05 08:00 | Outpatient (BNV) | payer OTHER, SELFPAY | PROVIDERS: PCP Internal Medicine; Visit Provider Radiology Body Imaging | DX: R92.8 Other abnormal and inconclusive findings on diagnostic imaging of breast (principal) | CPT/HCPCS: 77061; 77065 ==